=== PATIENT | female | born 1935 | race Caucasian/White ===

== ENCOUNTER → 2016-03-15 | Outpatient (CLI) | payer MEDICARE ==
[2016-02-20 15:45] VITALS: BP 192/81
[~2016-03-15] MED LIST: ATOR20TA58 PO; GADOBUTROL 7.5 MMOL/7.5 ML VIAL IV ONE; HYDR-971 PO; IBUP200C PO; METH4TAB2 PO; Oxycodone Hcl/Acetaminophen PO; SULF1TAB24 PO
[2016-03-15 11:27] LABS: CREATININE 0.8 mg/dL (0.6-1.0)
--- NOTE | 2016-03-15 12:33 | RAD ---
PROCEDURE MRI brain without and with contrast. HISTORY Followup mass/meningioma TECHNIQUE Sagittal and axial T1, axial T2, axial FLAIR, axial diffusion, axial gradient echo T2, and post-contrast axial and coronal T1 weighted images were acquired of the brain. Contrast: 4 cc Gadavist COMPARISON December 28, 2015 FINDINGS There is again large enhancing extra-axial mass of the left frontal region 4.5 cm transverse by 4.1 cm AP by 4.4 cm cc, similar. There is adjacent mild dural thickening and enhancement. There is no evidence of recent infarct. There is no new extra-axial fluid collection. There is no nodular parenchymal enhancement. There is again mild to moderate supratentorial atrophy. Minimal T2 and FLAIR hyperintense signal abnormality such as near frontal horns and a few small foci in the deep white matter are similar. There is similar minimal T2 and FLAIR hyperintense signal abnormality of the yuval. There is preservation of the major arterial intracranial flow voids at the skull base. There has been lens surgery bilaterally. There is again mild fluid and thickening of the right mastoid air cells, left mastoid air cells aerated. There is improved aeration right maxillary sinus, some persistent polypoid mucosal thickening/mucous retention cyst. There is also improved aeration of the right ethmoid air cells, minimal bilateral ethmoid air cell mucosal thickening. Cerebellar tonsils are normal in location. There is no abnormality of the pineal gland or pituitary gland. IMPRESSION 1. Large extra-axial enhancing mass in left frontal region is stable, likely a meningioma. 2. There is again mild to moderate supratentorial atrophy. Minimal T2 and FLAIR hyperintense signal abnormality of the supratentorial white matter is probably due to chronic microvascular ischemic disease, stable. 3. There is improved aeration of the right maxillary sinus, decreased ethmoid air cell mucosal thickening. Electronically signed by: Param Chavez MD (Mar 15, 2016 12:31:20)
== END | disposition home or self-care (01) ==
LOC: MRI 10:44
PROVIDERS: ATTEND Neurological Surgery
DX: G93.9 Disorder of brain, unspecified (principal); G31.89 Other specified degenerative diseases of nervous system; M27.40 Unspecified cyst of jaw
CPT/HCPCS: 36415; 70553; 82565

== ENCOUNTER → 2016-04-18 | Outpatient (CLI) | payer MEDICARE ==
[2016-02-20 15:45] VITALS: BP 192/81
[~2016-04-18] MED LIST changes: -GADOBUTROL 7.5 MMOL/7.5 ML VIAL IV ONE
--- NOTE | 2016-04-18 11:19 | KCIC ---
Two-view chest. Indication:Reason For StudyReason: BRONCHITIS AND COUGH FOR SEVERAL WEEKS, NON SMOKER / Spl. Instructions: / History: FINDINGS: Calcified granulomas are noted in the right lung. Heart size is normal. No pleural effusion. No pneumothorax. Pulmonary vasculature is within normal limits. Impression: - No evidence for heart failure or pneumonia. Electronically signed by: Anant Parnell (Apr 18, 2016 11:18:48)
== END | disposition home or self-care (01) ==
LOC: KCIC 10:42
PROVIDERS: ATTEND Family Medicine
DX: J40 Bronchitis, not specified as acute or chronic (principal); R05 Cough
CPT/HCPCS: 71020

== ENCOUNTER 2016-08-05 08:46 | Emergency (ER) | payer MEDICARE ==
[~2016-08-05] VITALS: Ht 157.5 cm; Wt 43.1 kg
[~2016-08-05 08:46] MED LIST changes: +CALC600T4 PO; +CITA40TA12 PO; +DONE10TA61 PO; +LOPE2CAP88 PO
[2016-08-05] MEDS ORDERED: HYDROcodone/APAP 5/325MG 1 TAB TABLET PO ONE (09:15)
--- NOTE | 2016-08-05 09:15 | PHYS DOC ---
Past Medical History Past Medical History: Arthritis, High Cholesterol Additional Past Medical Histor: osteoporosis, hx of pelvic fx Past Surgical History: Other Additional Past Surgical Histo: broken jaw, broken wrist Alcohol Use: None Drug Use: None Adult General Chief Complaint Chief Complaint: PELVIC PAIN HPI HPI Patient is a 81 year old female who presents with complaint of right hip and groin pain that started this morning upon awakening. Patient denies any recent trauma. Patient states that she is having aching pain that she rates as 7 out of 10 that worsens with movement and weightbearing. Patient has history of osteoporosis but denies known history of arthritis. Patient admits to increased ambulation over the past week to increase exercise. Patient has not taken any medications to help with her symptoms at this time. Patient does report history of previous pelvic fracture to the affected side. Review of Systems Review of Systems Constitutional: Denies fever or chills [] Eyes: Denies change in visual acuity, redness, or eye pain [] HENT: Denies nasal congestion or sore throat [] Respiratory: Denies cough or shortness of breath [] Cardiovascular: Denies chest pain or edema [] GI: Denies abdominal pain, nausea, vomiting, bloody stools or diarrhea [] : Denies dysuria or hematuria [] Musculoskeletal: Right hip and groin pain [] Integument: Denies rash or skin lesions [] Neurologic: Denies headache, focal weakness or sensory changes [] Current Medications Current Medications Current Medications Medications (Trade) Dose Ordered Sig/Juan Start Time Stop Time Status Last Admin Dose Admin Acetaminophen/ Hydrocodone Bitart (Lortab 5/325) 1 tab 1X ONCE 08/05/16 09:15 08/05/16 09:16 DC 08/05/16 09:45 1 TAB Allergies Allergies Allergies Coded Allergies Type Severity Reaction Last Updated Verified No Known Drug Allergies 06/06/16 No Physical Exam Physical Exam Constitutional: Alert, afebrile, appears in moderate discomfort. [] HENT: Normocephalic, atraumatic, bilateral external ears normal, oropharynx moist, no oral exudates, nose normal. [] Eyes: PERRLA, EOMI, conjunctiva normal, no discharge. [] Neck: Normal range of motion, no tenderness, supple, no stridor. [] Cardiovascular:Heart rate regular rhythm, no murmur [] Lungs & Thorax: Bilateral breath sounds clear to auscultation [] Abdomen: Bowel sounds normal, soft, no tenderness, no masses, no pulsatile masses. [] Skin: Warm, dry, no erythema, no rash. [] Back: No tenderness, no CVA tenderness. [] Extremities: Right greater trochanteric tenderness to palpation, no cyanosis, no clubbing, right hip range of motion not tested secondary to pain, no edema, neurovascularly intact distal to right hip. [] Neurologic: Alert and oriented X 3, normal motor function, normal sensory function, no focal deficits noted. [] Current Patient Data Vital Signs Vital Signs Date Time Temp Pulse Resp B/P (MAP) Pulse Ox O2 Delivery O2 Flow Rate FiO2 08/05/16 08:50 97.8 68 18 149/76 (100) 97 Room Air 97.8 Lab Values Laboratory Tests Test 08/05/16 09:20 Urine Collection Type Void Urine Color Yellow Urine Clarity Clear Urine pH 6.0 Urine Specific [place] 1.020 Urine Protein Negative mg/dL (NEG-TRACE) Urine Glucose (UA) Negative mg/dL (NEG) Urine Ketones (Stick) Negative mg/dL (NEG) Urine Blood Moderate (NEG) Urine Nitrite Negative (NEG) Urine Bilirubin Negative (NEG) Urine Urobilinogen Dipstick 0.2 mg/dL (0.2 mg/dL) Urine Leukocyte Esterase Negative (NEG) Urine RBC 11-20 /HPF (0-2) Urine WBC Occ /HPF (0-4) Urine Squamous Epithelial Cells Occ /LPF Urine Bacteria 0 /HPF (0-FEW) Urine Hyaline Casts Occasional /HPF Urine Mucus Mod /LPF EKG EKG Not performed [] Radiology/Procedures Radiology/Procedures [facility] [address] [place] [address] IMAGING REPORT Signed PATIENT: VADIM STARR ACCOUNT: [id number] : 1935 LOCATION: ER AGE: 81 SEX: F EXAM STATUS: REG ER ORD. PHYSICIAN: INES CARPIO MD REASON: right hip pain PROCEDURE: HIP RIGHT 2V WITH PELVIS Pelvis with right hip, 3 views, 08/05/2016: History: Groin pain There are old healed fractures of the pubic bones. No acute fracture or dislocation is identified. The hip joint spaces are well maintained. Mild scattered arterial calcifications are present. IMPRESSION: 1. Old healed bilateral pubic bone fractures. 2. No acute abnormality is detected. DICTATED and SIGNED BY: MINO ELIAS MD DATE: 08/05/16 0955 CC: INES CARPIO MD; OSMEL RIVERA MD ~ [] Course & Med Decision Making Course & Med Decision Making Pertinent Labs and Imaging studies reviewed. (See chart for details) Patient was given hydrocodone in the emergency department. Patient's x-rays show no evidence of acute fracture. The patient's symptoms are likely secondary to aggravation of old injury of the pelvis. Patient's UA shows evidence of mild hematuria. Due to possibility of cystitis, the patient will also be started on Macrobid in addition to pain medication for her hip pain. Recommended that patient follow-up with her primary doctor in the next 5 days if symptoms are not improving and return to the emergency department for any worsening symptoms. Patient voiced understanding and in agreement with treatment plan. Dragon Disclaimer Dragon Disclaimer This electronic medical record was generated, in whole or in part, using a voice recognition dictation system. Departure Departure Impression: Primary Impression: Right hip pain Additional Impression: Cystitis Disposition: 01 HOME, SELF-CARE Condition: IMPROVED Referrals: OSMEL RIVERA MD (PCP) Patient Instructions: Hip Pain, Urinary Tract Infection Additional Instructions: Follow-up with Dr. Rivera in 5 days if symptoms are not improving. You may take 1 [id number] Advil tablet every 6 hours for the next 5 days to help with inflammation. Return to the emergency department for any worsening symptoms. Scripts Hydrocodone/Apap 5-325 (NORCO 5-325 TABLET) 1 Each Tablet 1 TAB PO Q6HRS Y for PAIN, #15 TAB 0 Refills Prov: INES CARPIO MD 08/05/16 Nitrofurantoin Monohyd/M-Cryst (MACROBID 100 MG CAPSULE) 100 Mg Capsule 1 CAP PO BID, #14 CAP Prov: INES CARPIO MD 08/05/16 Problem Qualifiers INES CARPIO MD Aug 05, 2016 09:15
[2016-08-05 09:30] LABS: BILIRUBIN,URINE NEGATIVE (NEG); GLUCOSE,URINE NEGATIVE (NEG); NITRITE,URINE NEGATIVE (NEG); PROTEIN,URINE NEGATIVE (NEG-TRACE); UROBILINOGEN,URINE 0.2 mg/dL (0.2 mg/dL)
[2016-08-05 09:39] LABS: BACTERIA,URINE 0 /HPF (0-FEW); SQUAMOUS EPITHELIAL CELL,UR OCC /LPF; WBC,URINE OCC /HPF (0-4)
--- NOTE | 2016-08-05 09:59 | RAD ---
Pelvis with right hip, 3 views, 08/05/2016: History: Groin pain There are old healed fractures of the pubic bones. No acute fracture or dislocation is identified. The hip joint spaces are well maintained. Mild scattered arterial calcifications are present. IMPRESSION: 1. Old healed bilateral pubic bone fractures. 2. No acute abnormality is detected.
[2016-08-05] MEDS ORDERED: NITR100C62 PO (10:23)
[2016-08-05] MEDS ORDERED: HYDR-971 PO (10:23)
[2016-08-05 10:35] VITALS: BP 140/68
== END 2016-08-05 10:38 | disposition home or self-care (01) ==
LOC: ER 08:46
DX: M25.551 Pain in right hip (principal); N30.90 Cystitis, unspecified without hematuria; M81.0 Age-related osteoporosis without current pathological fracture; M19.90 Unspecified osteoarthritis, unspecified site
CPT/HCPCS: 73502; 81001; 99285-25

== ENCOUNTER → 2017-03-08 | Outpatient (CLI) | payer MEDICARE ==
[2017-03-08 12:17] LABS: ISTAT CREATININE 0.7 mg/dL (0.6-1.1)
[2017-03-08] MEDS: GADOBUTROL 7.5 MMOL/7.5 ML VIAL IV (12:17)
== END | disposition home or self-care (01) ==
LOC: KCIC MRI 11:20
DX: D32.9 Benign neoplasm of meninges, unspecified (principal)
CPT/HCPCS: 70553; 82565; A9585

== ENCOUNTER → 2017-03-24 | Outpatient (CLI) | payer MEDICARE | END | disposition home or self-care (01) | LOC: KCIC 08:55 | DX: M25.531 Pain in right wrist (principal) | CPT/HCPCS: 73110 ==

== ENCOUNTER → 2017-10-13 | Outpatient (CLI) | payer OTHER ==
[~2017-10-13] MED LIST changes: +NITR100C62 PO
--- NOTE | 2017-10-13 17:40 | KCIC ---
CHEST PA LATERAL History: Cough. Wheezing. Cough and recent weeks.. Comparison: April 18, 2016 Heart size: Within normal limits. Elizabeth/mediastinum: Stable Lungs: Dense nodule right lung unchanged, compatible with granuloma. Density overlying the right anterior third rib is stable. Nodular opacity left lung base, likely a nipple shadow or superimposed vasculature. No consolidating infiltrate. Air trapping, compatible with emphysema. Pleura: No evidence of pleural effusion. Pneumothorax: None visualized Bones: S-shaped thoracic scoliosis. Miscellaneous: None Impression: Stable exam. No evidence of acute infiltrate. Electronically signed by: Darwin Mina MD (10/13/2017 5:36 PM) [facility]
== END | disposition home or self-care (01) ==
LOC: KCIC 12:52
PROVIDERS: ATTEND Family Medicine
DX: M41.84 Other forms of scoliosis, thoracic region (principal); R05 Cough; E78.00 Pure hypercholesterolemia, unspecified
CPT/HCPCS: 71046

== ENCOUNTER 2018-04-30 22:32 | Inpatient (IN) | payer MEDICARE, OTHER ==
[~2018-04-30] VITALS: Ht 157.5 cm; Wt 42.8 kg
[~2018-04-30 22:32] MED LIST changes: +HYDR-3164 PO; -HYDR-971 PO
--- NOTE | 2018-04-30 22:57 | PHYS DOC ---
Past Medical History Past Medical History: Arthritis, Dementia, High Cholesterol Additional Past Medical Histor: osteoporosis, hx of pelvic fx (BRE GUTIÉRREZ MD) Past Surgical History: Other Additional Past Surgical Histo: broken jaw, broken wrist (BRE GUTIÉRREZ MD) Alcohol Use: None Drug Use: None (BRE GUTIÉRREZ MD) Adult General Chief Complaint Chief Complaint: WEAKNESS/GENERALIZED HPI HPI Patient is an 83-year-old female who presents to the emergency department via EMS. Her sister, who helps care for the patient, came home and found the patient unable to get out of a chair, secondary to weakness in her legs. She helped the patient to the bathroom, but then the patient was unable to get off of the commode. An EMS was called. The patient denies any traumatic injuries or any falls. She denies any pain otherwise. She has had a cough, which sounds wet but has been mostly nonproductive, for the past month or so according to her sister. She denies any chest pain or shortness of breath. She did state having had headaches on and off. Review of prior records reveals that the patient does have a history of a meningioma. The patient denies any urinary symptoms. There are no alleviating or exacerbating factors to the patient's symptoms otherwise. (BRE GUTIÉRREZ MD) Review of Systems Review of Systems Constitutional: Denies fever or chills [] Eyes: Denies change in visual acuity, redness, or eye pain [] HENT: Denies nasal congestion or sore throat [] Respiratory: Denies shortness of breath with the patient does admit to a cough. [] Cardiovascular: The patient denies any shortness of breath, chest pain, palpitations, or orthopnea [] GI: Denies abdominal pain, nausea, vomiting, bloody stools or diarrhea [] : Denies dysuria or hematuria [] Musculoskeletal: Denies back pain or joint pain [] Integument: Denies rash or skin lesions [] Neurologic: Denies focal weakness or sensory changes [] Endocrine: Denies polyuria or polydipsia [] All other systems were reviewed and found to be within normal limits, except as documented in this note. (BRE GUTIÉRREZ MD) Current Medications Current Medications Current Medications Medications (Trade) Dose Ordered Sig/Juan Start Time Stop Time Status Last Admin Dose Admin Sodium Chloride 1,000 ml @ 100 mls/hr Q10H 04/30/18 23:00 05/01/18 08:59 05/01/18 00:24 100 MLS/HR (DARWIN DEL ROSARIO DO) Allergies Allergies Allergies Coded Allergies Type Severity Reaction Last Updated Verified No Known Drug Allergies 06/06/16 No (DARWIN DEL ROSARIO DO) Physical Exam Physical Exam PHYSICAL EXAM: CONSTITUTIONAL: Well developed, well nourished HEAD: normocephalic, atraumatic EENT: PERRL, EOMI. Conjunctivae normal color, sclerae non-icteric; moist mucous membranes. NECK: Supple, non-tender; no meningismus. LUNGS: Lungs CTA, breathing even and unlabored. Normal air movement. HEART: Regular rate and rhythm, no murmur CHEST: No deformity; non-tender ABDOMEN: The abdomen is soft, and non-tender, no masses or bruits. EXTREM: Normal ROM; no deformity, no calf tenderness. Normal pulses palpable in all extremities. There is no pedal edema. SKIN: No rash; no diaphoresis NEURO: Alert; normal speech, mildly impaired cognition, consistent with underlying dementia, mild,; CN's grossly intact; strength grossly intact without focal deficit. BACK: No CVA TTP. (BRE GUTIÉRREZ MD) Physical Exam l Constitutional: Well developed, well nourished, no acute distress, non-toxic appearance. [] HEENT: EOMI, PERRL, conjunctivae clear Neck: Normal range of motion, no midline tenderness, supple Thorax and Lungs: No respiratory distress, scattered expiratory wheezes L>R Skin: Warm, dry, no erythema, no rash. [] Neuro: Alert and oriented to name and place only, confused to year. 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 , strength 5/5 BUE, 4/5 LLE, 4/5 RLE (DARWIN DEL ROSARIO DO) Current Patient Data Vital Signs Vital Signs Date Time Temp Pulse Resp B/P (MAP) Pulse Ox O2 Delivery O2 Flow Rate FiO2 04/30/18 23:44 87 16 94 04/30/18 22:46 100.9 200/91 (127) Room Air 100.9 (DARWIN DEL ROSARIO DO) Lab Values Laboratory Tests Test 04/30/18 23:25 04/30/18 23:44 3/4/19 23:54 White Blood Count 7.8 x10^3/uL (4.0-11.0) Red Blood Count 4.82 x10^6/uL (3.50-5.40) Hemoglobin 13.9 g/dL (12.0-15.5) Hematocrit 42.6 % (36.0-47.0) Mean Corpuscular Volume 88 fL (79-100) Mean Corpuscular Hemoglobin 29 pg (25-35) Mean Corpuscular Hemoglobin Concent 33 g/dL (31-37) Red Cell Distribution Width 15.1 % (11.5-14.5) H Platelet Count 308 x10^3/uL (140-400) Neutrophils (%) (Auto) 88 % (31-73) H Lymphocytes (%) (Auto) 4 % (24-48) L Monocytes (%) (Auto) 7 % (0-9) Eosinophils (%) (Auto) 1 % (0-3) Basophils (%) (Auto) 1 % (0-3) Neutrophils # (Auto) 6.8 x10^3uL (1.8-7.7) Lymphocytes # (Auto) 0.3 x10^3/uL (1.0-4.8) L Monocytes # (Auto) 0.6 x10^3/uL (0.0-1.1) Eosinophils # (Auto) 0.0 x10^3/uL (0.0-0.7) Basophils # (Auto) 0.0 x10^3/uL (0.0-0.2) Segmented Neutrophils % 87 % (35-66) H Band Neutrophils % 5 % (0-9) Lymphocytes % 2 % (24-48) L Monocytes % 6 % (0-10) Platelet Estimate Adequate (ADEQUATE) Sodium Level 140 mmol/L (136-145) Potassium Level 4.1 mmol/L (3.5-5.1) Chloride Level 101 mmol/L (98-107) Carbon Dioxide Level 27 mmol/L (21-32) Anion Gap 12 (6-14) Blood Urea Nitrogen 20 mg/dL (7-20) Creatinine 0.8 mg/dL (0.6-1.0) Estimated GFR (Cockcroft-Gault) 68.5 BUN/Creatinine Ratio 25 (6-20) H Glucose Level 115 mg/dL (70-99) H Lactic Acid Level 0.9 mmol/L (0.4-2.0) Calcium Level 9.2 mg/dL (8.5-10.1) Magnesium Level 2.0 mg/dL (1.8-2.4) Total Bilirubin 0.3 mg/dL (0.2-1.0) Aspartate Amino Transferase (AST) 16 U/L (15-37) Alanine Aminotransferase (ALT) 17 U/L (14-59) Alkaline Phosphatase 57 U/L (46-116) Creatine Kinase 74 U/L (26-192) Creatine Kinase MB (Mass) 1.2 ng/mL (0.0-3.6) Creatine Kinase MB Relative Index % (0-4) Troponin I Quantitative < 0.017 ng/mL (0.000-0.055) WG-Ufr-B-Type Natriuretic Peptide 834 pg/mL (0-449) H Total Protein 7.5 g/dL (6.4-8.2) Albumin 3.7 g/dL (3.4-5.0) Albumin/Globulin Ratio 1.0 (1.0-1.7) Thyroid Stimulating Hormone (TSH) 1.048 uIU/mL (0.358-3.74) Free Thyroxine 1.01 ng/dL (0.76-1.46) Urine Collection Type Unknown Urine Color Yellow Urine Clarity Clear Urine pH 5.5 Urine Specific [place] 1.025 Urine Protein 30 mg/dL (NEG-TRACE) Urine Glucose (UA) Negative mg/dL (NEG) Urine Ketones (Stick) 15 mg/dL (NEG) Urine Blood Moderate (NEG) Urine Nitrite Negative (NEG) Urine Bilirubin Negative (NEG) Urine Urobilinogen Dipstick 0.2 mg/dL (0.2 mg/dL) Urine Leukocyte Esterase Negative (NEG) Urine RBC 6-10 /HPF (0-2) Urine WBC 1-4 /HPF (0-4) Urine Squamous Epithelial Cells Mod /LPF Urine Bacteria 0 /HPF (0-FEW) Urine Mucus Marked /LPF Influenza Type A Antigen Negative (NEGATIVE) Influenza Type B Antigen Negative (NEGATIVE) Laboratory Tests 04/30/18 23:25 Laboratory Tests 04/30/18 23:25 (DARWIN DEL ROSARIO DO) Lab Values Laboratory Tests Test 04/30/18 23:25 White Blood Count 7.8 x10^3/uL (4.0-11.0) Red Blood Count 4.82 x10^6/uL (3.50-5.40) Hemoglobin 13.9 g/dL (12.0-15.5) Hematocrit 42.6 % (36.0-47.0) Mean Corpuscular Volume 88 fL (79-100) Mean Corpuscular Hemoglobin 29 pg (25-35) Mean Corpuscular Hemoglobin Concent 33 g/dL (31-37) Red Cell Distribution Width 15.1 % (11.5-14.5) H Platelet Count 308 x10^3/uL (140-400) Neutrophils (%) (Auto) 88 % (31-73) H Lymphocytes (%) (Auto) 4 % (24-48) L Monocytes (%) (Auto) 7 % (0-9) Eosinophils (%) (Auto) 1 % (0-3) Basophils (%) (Auto) 1 % (0-3) Neutrophils # (Auto) 6.8 x10^3uL (1.8-7.7) Lymphocytes # (Auto) 0.3 x10^3/uL (1.0-4.8) L Monocytes # (Auto) 0.6 x10^3/uL (0.0-1.1) Eosinophils # (Auto) 0.0 x10^3/uL (0.0-0.7) Basophils # (Auto) 0.0 x10^3/uL (0.0-0.2) Segmented Neutrophils % 87 % (35-66) H Band Neutrophils % 5 % (0-9) Lymphocytes % 2 % (24-48) L Monocytes % 6 % (0-10) Platelet Estimate Adequate (ADEQUATE) Sodium Level 140 mmol/L (136-145) Potassium Level 4.1 mmol/L (3.5-5.1) Chloride Level 101 mmol/L (98-107) Carbon Dioxide Level 27 mmol/L (21-32) Anion Gap 12 (6-14) Blood Urea Nitrogen 20 mg/dL (7-20) Creatinine 0.8 mg/dL (0.6-1.0) Estimated GFR (Cockcroft-Gault) 68.5 BUN/Creatinine Ratio 25 (6-20) H Glucose Level 115 mg/dL (70-99) H Lactic Acid Level 0.9 mmol/L (0.4-2.0) Calcium Level 9.2 mg/dL (8.5-10.1) Magnesium Level 2.0 mg/dL (1.8-2.4) Total Bilirubin 0.3 mg/dL (0.2-1.0) Aspartate Amino Transferase (AST) 16 U/L (15-37) Alanine Aminotransferase (ALT) 17 U/L (14-59) Alkaline Phosphatase 57 U/L (46-116) Troponin I Quantitative < 0.017 ng/mL (0.000-0.055) Total Protein 7.5 g/dL (6.4-8.2) Albumin 3.7 g/dL (3.4-5.0) Albumin/Globulin Ratio 1.0 (1.0-1.7) Laboratory Tests 04/30/18 23:25 Laboratory Tests 04/30/18 23:25 (BRE GUTIÉRREZ MD) EKG EKG [Normal sinus rhythm at a rate of 87 beats for minute, normal axis, normal intervals, left upper 3, nonspecific ST/T changes without acute ischemic ST/T changes.] (BRE GUTIÉRREZ MD) Radiology/Procedures Radiology/Procedures [PROCEDURE: CT HEAD WO CONTRAST CT HEAD WO CONTRAST History: Weakness, headache, mass Comparison: 12/09/2015 Technique: Noncontrast CT imaging was performed of the head. Exposure: One or more of the following individualized dose reduction techniques were utilized for this examination: 1. Automated exposure control 2. Adjustment of the mA and/or kV according to patient size 3. Use of iterative reconstruction technique. Findings: There is again partially calcified large extra-axial mass in the left frontal region about 4.2 cm AP by 4.3 cm transverse, some compression upon the left frontal parenchyma as seen previously, no new edema. Size is fairly similar. There is no evidence of acute intracranial hemorrhage. There is again generalized supratentorial atrophy. Ventricular size is stable, within normal limits. Visualized paranasal sinuses and mastoid air cells are aerated. There is atherosclerotic calcification of the carotid siphons. Impression: 1. No acute intracranial abnormality is identified. There is again large left frontal mass, evidence of meningioma. There is generalized supratentorial atrophy.] PROCEDURE: PORTABLE CHEST 1V PORTABLE CHEST 1V History: COUGH, WEAKNESS SINCE THIS MORNING Comparison: October 13, 2017 Findings: As AP portable view of the chest is submitted. There is again likely emphysema. There is no new infiltrate, pleural fluid, pneumothorax. Interstitial opacity bilaterally has not convincingly changed. There is again granuloma of the right lung base. Heart size is within normal limits. There is again tortuous thoracic aorta, atherosclerotic calcification near aortic arch. Impression: 1. No acute radiographic abnormality is identified. There is likely emphysema. (BRE GUTIÉRREZ MD) Course & Med Decision Making Course & Med Decision Making Pertinent Labs and Imaging studies reviewed. (See chart for details) [12:00 AM: Patient will be turned over to Dr. Darwin Del Rosario at shift change, report given, disposition pending.] (BRE GUTIÉRREZ MD) Course & Med Decision Making Sign out received from Dr. Gutiérrez for patient with report of generalized weakness. Patient pending laboratory evaluation. CT head and CXR without acute process. Patient seen and evaluated by myself. NIHSS 2 due to slight drift to BLE. Patient requiring admission for further evaluation and treatment. Discussed with Dr. Jeffrey (hospitalist) who is in agreement with admission. Discussed findings and plan with patient and family, who acknowledge understanding and agreement. (DARWIN DEL ROSARIO DO) Dragon Disclaimer Dragon Disclaimer This electronic medical record was generated, in whole or in part, using a voice recognition dictation system. (BRE GUTIÉRREZ MD) Departure Departure Impression: Primary Impression: Generalized weakness Disposition: ADMITTED INPATIENT Admitting Physician: Lam Jeffrey (DARWIN DEL ROSARIO DO) Condition: STABLE Referrals: OSMEL RIVERA MD (PCP) NIHSS Stroke Scale NIH Stroke Scale: NIH Stroke Scale Response (Comments) Value Level of Consciousness: 0 Alert/Responsive 0 LOC Questions: 0 Answers both correctly 0 LOC Commands: 0 Performs both tasks 0 Best Gaze: 0 Normal 0 Visual: 0 No visual loss 0 Facial Palsy: 0 Normal, symmetrical 0 Motor - Left Arm 0 No drift 0 Motor - Right Arm 0 No drift 0 Motor - Left Leg 1 Drift but can hold 1 Motor: Right Leg 1 Drift but can hold 1 Limb Ataxia: 0 Absent 0 Sensory: 0 No loss 0 Best Language: 0 Normal 0 Dysathria: 0 Normal 0 Extinction and Inattention: 0 Normal 0 Total 2 BRE GUTIÉRREZ MD Apr 30, 2018 22:57 DARWIN DEL ROSARIO DO May 01, 2018 00:45
[2018-04-30] MEDS ORDERED: IV NORMAL SALINE 1000ML BAG 1,000 ML IV SCH (23:00)
--- NOTE | 2018-04-30 23:19 | RAD ---
PORTABLE CHEST 1V History: COUGH, WEAKNESS SINCE THIS MORNING Comparison: October 13, 2017 Findings: As AP portable view of the chest is submitted. There is again likely emphysema. There is no new infiltrate, pleural fluid, pneumothorax. Interstitial opacity bilaterally has not convincingly changed. There is again granuloma of the right lung base. Heart size is within normal limits. There is again tortuous thoracic aorta, atherosclerotic calcification near aortic arch. Impression: 1. No acute radiographic abnormality is identified. There is likely emphysema. Electronically signed by: Casey Chavez MD (04/30/2018 11:16 PM) [facility]
--- NOTE | 2018-04-30 23:35 | RAD ---
CT HEAD WO CONTRAST History: Weakness, headache, mass Comparison: 12/09/2015 Technique: Noncontrast CT imaging was performed of the head. Exposure: One or more of the following individualized dose reduction techniques were utilized for this examination: 1. Automated exposure control 2. Adjustment of the mA and/or kV according to patient size 3. Use of iterative reconstruction technique. Findings: There is again partially calcified large extra-axial mass in the left frontal region about 4.2 cm AP by 4.3 cm transverse, some compression upon the left frontal parenchyma as seen previously, no new edema. Size is fairly similar. There is no evidence of acute intracranial hemorrhage. There is again generalized supratentorial atrophy. Ventricular size is stable, within normal limits. Visualized paranasal sinuses and mastoid air cells are aerated. There is atherosclerotic calcification of the carotid siphons. Impression: 1. No acute intracranial abnormality is identified. There is again large left frontal mass, evidence of meningioma. There is generalized supratentorial atrophy. Electronically signed by: Casey Chavez MD (04/30/2018 11:32 PM) [facility]
[2018-04-30 23:36] LABS: BASO % 1 % (0-3); EOS % 1 % (0-3); HEMATOCRIT 42.6 % (36.0-47.0); HEMOGLOBIN 13.9 g/dL (12.0-15.5); LYMPH # 0.3 x10^3/uL (1.0-4.8); LYMPH % 4 % (24-48); MEAN CORPUSCULAR HEMOGLOBIN 29 pg (25-35); MEAN CORPUSCULAR HGB CONC 33 g/dL (31-37); MEAN CORPUSCULAR VOLUME 88 fL (79-100); MONO # 0.6 x10^3/uL (0.0-1.1); MONO % 7 % (0-9); NEUT # 6.8 x10^3uL (1.8-7.7); NEUT % 88 % (31-73); PLATELET COUNT 308 x10^3/uL (140-400); RED BLOOD COUNT 4.82 x10^6/uL (3.50-5.40); RED CELL DISTRIBUTION WIDTH 15.1 % (11.5-14.5); WHITE BLOOD COUNT 7.8 x10^3/uL (4.0-11.0)
[2018-04-30 23:46] LABS: CALCIUM 9.2 mg/dL (8.5-10.1); CREATININE 0.8 mg/dL (0.6-1.0); GFR 68.5; POTASSIUM 4.1 mmol/L (3.5-5.1)
[2018-04-30 23:51] LABS: ALBUMIN 3.7 g/dL (3.4-5.0); TOTAL BILIRUBIN 0.3 mg/dL (0.2-1.0); TOTAL PROTEIN 7.5 g/dL (6.4-8.2)
[2018-04-30 23:53] LABS: BILIRUBIN,URINE NEGATIVE (NEG); CLARITY,URINE CLEAR; COLOR,URINE YELLOW; NITRITE,URINE NEGATIVE (NEG); PH,URINE 5.5; PROTEIN,URINE 30 mg/dL (NEG-TRACE); UROBILINOGEN,URINE 0.2 mg/dL (0.2 mg/dL)
[2018-04-30 23:54] LABS: % BANDS 5 % (0-9); % LYMPHS 2 % (24-48); % MONOS 6 % (0-10); % SEGS 87 % (35-66); PLT ESTIMATE ADEQUATE (ADEQUATE)
[2018-04-30 23:59] LABS: FREE T4 1.01 ng/dL (0.76-1.46); THYROID STIM HORMONE (TSH) 1.048 uIU/mL (0.358-3.74)
[2018-05-01] VITALS (7 sets, daily range): BP systolic 154–193; BP diastolic 71–93
[2018-05-01 00:01] LABS: BACTERIA,URINE 0 /HPF (0-FEW); SQUAMOUS EPITHELIAL CELL,UR MOD /LPF
[2018-05-01 00:14] LABS: CREATINE KINASE 74 U/L (26-192)
[2018-05-01 00:30] LABS: INFLUENZA A PATIENT NEGATIVE (NEGATIVE); INFLUENZA B PATIENT NEGATIVE (NEGATIVE)
--- NOTE | 2018-05-01 05:57 | EKG ---
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
[2018-05-01] MEDS ORDERED: MELO7.5T29 PO (07:36)
[2018-05-01] MEDS: amLODIPine BESYLATE 5 MG TABLET PO SCH (08:36)
[2018-05-01] MEDS ORDERED: amLODIPine BESYLATE 10 MG TABLET PO SCH (09:00)
--- NOTE | 2018-05-01 10:30 | NUR ---
Pt transferred from room 201 to room 673. Received report from DEEPIKA Hawley. Pt transported via bed. All belongings left with patient at time of transfer. Family at the bedside.
--- NOTE | 2018-05-01 10:30 | NUR ---
Patient transferred to room 673 at 1030. Report given over phone to DEEPIKA Terrazas. transplant registered nurse placed on patient. Sister at bedside.
[2018-05-01] MEDS ORDERED: PROAIR RESPICL90 MCG IH (11:29)
[2018-05-01] MEDS ORDERED: NON FORMULARY ITEM (Albuterol Sulfate (Proair Respiclick) 2 PUFF) IH PRN (11:30)
[2018-05-01] MEDS ORDERED: ALBUTEROL SULFATE 2.5 MG/3 ML NEBU. NEB PRN (11:45)
[2018-05-01] MEDS ORDERED: LOPERAMIDE 2 MG CAPSULE PO PRN (11:45)
--- NOTE | 2018-05-01 11:45 | NUR ---
Spoke with a pharmacy resident at [facility] on [address] who verified patient home medications with this RN. Pt sister, Tawana confirmed that patient medication list is current at [facility] and does not receive medications from anywhere else.
--- NOTE | 2018-05-01 12:14 | HP ---
ADMIT DATE: 05/01/2018 CHIEF COMPLAINT: Weakness. HISTORY OF PRESENT ILLNESS: The patient is a pleasant 83-year-old female presented to the ER with weakness. Her sister helps take care of her. The patient apparently could not get out of her chair, her legs were quite weak. Her sister did take her to the bathroom, but she could not get off the commode, EMS was called. She did have a cough that has been nonproductive for several days, rates it as 7/10. Describes as irritating. She tried taking some home meds but that did not work. She has been having some headaches too. I discussed the case with the ER physician. We are going to admit the patient and consult social media developer and do some physical therapy, occupational therapy and she is wheezing some, so we are going to get Pulmonary on board. PAST MEDICAL HISTORY: Chronic wheezing, arthritis, dementia, hyperlipidemia, osteoporosis, pelvic fracture, broken jaw, broken wrist. ALLERGIES: None. FAMILY HISTORY: Coronary artery disease. SOCIAL HISTORY: She does not drink, smoke or take drugs. I think she lives alone. MEDICATIONS: Reviewed, she is on 7 including Aricept, ProAir, meloxicam, [place], Celexa, calcium and Imodium. REVIEW OF SYSTEMS: Unable to obtain. The patient is too confused. PHYSICAL EXAMINATION: VITAL SIGNS: Temperature 98, pulse 80, respirations 18, blood pressure 179/92. GENERAL: She is pleasant but confused. Her sister is present. HEART: Normal S1, S2. LUNGS: Coarse with wheezing. ABDOMEN: Soft. EXTREMITIES: No edema. SKIN: No rash. ENDOCRINE: No thyromegaly. LYMPHATICS: No cervical nodes. HEMATOPOIETIC: No bruising. PSYCHIATRIC: She is stable. LABORATORY AND DIAGNOSTIC DATA: White count 7.8, hemoglobin 13.9, platelets 308. Electrolytes are pending. Urinalysis negative. Flu testing is negative. Chest x-ray: No acute changes. There is likely emphysema. ASSESSMENT AND PLAN: Probable early failure to thrive, wheezing, emphysema, weakness. The patient has been admitted. We will consult Physical Therapy, Occupational Therapy, consult Dr. Sisillo. Patricia. Full code. Home meds. Frequent labs. SNU eval. TSH. Blood cultures are pending. ERICA ARELLANO DO DR: ZACARIAS/umesh JOB#: [id number] / [id number]
[2018-05-01] MEDS: CALCIUM CARBONATE 500 MG TABLET PO SCH (12:19)
[2018-05-01] MEDS: MELOXICAM 7.5 MG TABLET PO SCH (12:19)
[2018-05-01] MEDS ORDERED: MEMA10TA20 PO (14:13)
[2018-05-01] MEDS ORDERED: CALC-98 PO (14:13)
[2018-05-01] MEDS ORDERED: DENO60DI SQ (14:13)
[2018-05-01] MEDS: ALBUTEROL SULFATE 2.5 MG/3 ML NEBU. NEB SCH (21:16)
[2018-05-01] MEDS: DONEPEZIL HCL 10 MG TABLET. PO SCH (21:37)
[2018-05-01] MEDS: CITALOPRAM 20 MG TABLET. PO SCH (21:37)
[2018-05-01] MEDS: methylPREDNISolone SOD SUCC PF 40 MG/ML VIAL. IV SCH (21:37)
[2018-05-02 03:20] VITALS: BP 140/82
[2018-05-02 07:00] VITALS: BP 154/87
[2018-05-02] MEDS: ALBUTEROL SULFATE 2.5 MG/3 ML NEBU. NEB SCH ×4 (08:12→21:16)
[2018-05-02] MEDS: CALCIUM CARBONATE 500 MG TABLET PO SCH (09:43)
[2018-05-02] MEDS: MELOXICAM 7.5 MG TABLET PO SCH (09:44)
[2018-05-02] MEDS: amLODIPine BESYLATE 5 MG TABLET PO SCH (09:44)
[2018-05-02] MEDS: methylPREDNISolone SOD SUCC PF 40 MG/ML VIAL. IV SCH ×2 (09:46→21:23)
--- NOTE | 2018-05-02 10:59 | PDOC ---
PULMONARY PROGRESS NOTES Vitals Vital Signs Date Time Temp Pulse Resp B/P (MAP) Pulse Ox O2 Delivery O2 Flow Rate FiO2 05/02/18 09:44 75 154/87 05/02/18 08:13 91 Room Air 05/02/18 07:00 97.5 18 97.5 Labs Laboratory Tests Test 04/30/18 23:25 04/30/18 23:44 04/30/18 23:54 05/01/18 04:00 White Blood Count 7.8 x10^3/uL (4.0-11.0) Red Blood Count 4.82 x10^6/uL (3.50-5.40) Hemoglobin 13.9 g/dL (12.0-15.5) Hematocrit 42.6 % (36.0-47.0) Mean Corpuscular Volume 88 fL (79-100) Mean Corpuscular Hemoglobin 29 pg (25-35) Mean Corpuscular Hemoglobin Concent 33 g/dL (31-37) Red Cell Distribution Width 15.1 % (11.5-14.5) Platelet Count 308 x10^3/uL (140-400) Neutrophils (%) (Auto) 88 % (31-73) Lymphocytes (%) (Auto) 4 % (24-48) Monocytes (%) (Auto) 7 % (0-9) Eosinophils (%) (Auto) 1 % (0-3) Basophils (%) (Auto) 1 % (0-3) Neutrophils # (Auto) 6.8 x10^3uL (1.8-7.7) Lymphocytes # (Auto) 0.3 x10^3/uL (1.0-4.8) Monocytes # (Auto) 0.6 x10^3/uL (0.0-1.1) Eosinophils # (Auto) 0.0 x10^3/uL (0.0-0.7) Basophils # (Auto) 0.0 x10^3/uL (0.0-0.2) Segmented Neutrophils % 87 % (35-66) Band Neutrophils % 5 % (0-9) Lymphocytes % 2 % (24-48) Monocytes % 6 % (0-10) Platelet Estimate Adequate (ADEQUATE) Sodium Level 140 mmol/L (136-145) Potassium Level 4.1 mmol/L (3.5-5.1) Chloride Level 101 mmol/L (98-107) Carbon Dioxide Level 27 mmol/L (21-32) Anion Gap 12 (6-14) Blood Urea Nitrogen 20 mg/dL (7-20) Creatinine 0.8 mg/dL (0.6-1.0) Estimated GFR (Cockcroft-Gault) 68.5 BUN/Creatinine Ratio 25 (6-20) Glucose Level 115 mg/dL (70-99) Lactic Acid Level 0.9 mmol/L (0.4-2.0) Calcium Level 9.2 mg/dL (8.5-10.1) Magnesium Level 2.0 mg/dL (1.8-2.4) Total Bilirubin 0.3 mg/dL (0.2-1.0) Aspartate Amino Transf (AST/SGOT) 16 U/L (15-37) Alanine Aminotransferase (ALT/SGPT) 17 U/L (14-59) Alkaline Phosphatase 57 U/L (46-116) Creatine Kinase 74 U/L (26-192) Creatine Kinase MB (Mass) 1.2 ng/mL (0.0-3.6) Creatine Kinase MB Relative Index % (0-4) Troponin I Quantitative < 0.017 ng/mL (0.000-0.055) < 0.017 ng/mL (0.000-0.055) FC-Yvs-A-Type Natriuretic Peptide 834 pg/mL (0-449) Total Protein 7.5 g/dL (6.4-8.2) Albumin 3.7 g/dL (3.4-5.0) Albumin/Globulin Ratio 1.0 (1.0-1.7) Thyroid Stimulating Hormone (TSH) 1.048 uIU/mL (0.358-3.74) Free Thyroxine 1.01 ng/dL (0.76-1.46) Urine Collection Type Unknown Urine Color Yellow Urine Clarity Clear Urine pH 5.5 Urine Specific [place] 1.025 Urine Protein 30 mg/dL (NEG-TRACE) Urine Glucose (UA) Negative mg/dL (NEG) Urine Ketones (Stick) 15 mg/dL (NEG) Urine Blood Moderate (NEG) Urine Nitrite Negative (NEG) Urine Bilirubin Negative (NEG) Urine Urobilinogen Dipstick 0.2 mg/dL (0.2 mg/dL) Urine Leukocyte Esterase Negative (NEG) Urine RBC 6-10 /HPF (0-2) Urine WBC 1-4 /HPF (0-4) Urine Squamous Epithelial Cells Mod /LPF Urine Bacteria 0 /HPF (0-FEW) Urine Mucus Marked /LPF Influenza Type A Antigen Negative (NEGATIVE) Influenza Type B Antigen Negative (NEGATIVE) Test 05/01/18 07:10 Troponin I Quantitative 0.019 ng/mL (0.000-0.055) Medications Active Scripts Medications Dose Route/Sig Max Daily Dose Days Date Category Calcium + Vitamin D Tablet (Calcium Carbonate/Vitamin D3) 1 Each Tablet 1 Each PO BID 05/01/18 Reported Prolia (Denosumab) 60 Mg/1 Ml Disp.syrin 60 Mg SQ [id number] 05/01/18 Reported Memantine HCl 10 Mg Tablet 10 Mg PO BID 05/01/18 Reported Proair Respiclick (Albuterol Sulfate) 90 Mcg Aer.pow.ba 2 Puff IH PRN Q6HRS PRN 05/01/18 Reported Meloxicam 7.5 Mg Tablet 7.5 Mg PO DAILY 05/01/18 Reported Imodium A-D (Loperamide HCl) 2 Mg Capsule 2 Mg PO PRN TID PRN 06/08/16 Rx Celexa (Citalopram Hydrobromide) 40 Mg Tablet 1 Tab PO DAILY 06/06/16 Reported Aricept (Donepezil Hcl) 10 Mg Tablet 1 Tab PO DAILY 06/06/16 Reported Impression . NOTE DICTATED THANKS AECOPD POSSIBLE ASPIRATION SEE ORDERS THANKS CHRISTOPHER DENIS MD May 02, 2018 10:59
[2018-05-02 11:00] VITALS: BP 151/78
[2018-05-02] MEDS: DOXYCYCLINE HYCLATE 100 MG TABLET PO SCH ×2 (12:00→21:22)
--- NOTE | 2018-05-02 14:52 | PDOC ---
PROGRESS NOTES Chief Complaint Chief Complaint Acute COPD exacerbation Weakness moderate to severe protein calorie malnutrition moderate dehydration resolved Plan follow apprenticeship consultant recommendations PT evaluation rsume home medications reassess in the am further recommendations based on clinical course. History of Present Illness History of Present Illness Patient with no acute events reported overnight. The patient seems to have recovered her appetite she is hoping to be dismissed home. A concern from her note months is that she is not eating or caring for herself appropriately. She became quite dehydrated upon presentation to the hospital I have encourage her to follow recommendations from physical therapy number apprenticeship consultant moving forward. No complaints during my visit Vitals Vitals Vital Signs Date Time Temp Pulse Resp B/P (MAP) Pulse Ox O2 Delivery O2 Flow Rate FiO2 05/02/18 12:26 Room Air 05/02/18 11:00 97.8 71 18 151/78 (102) 93 97.8 Physical Exam Physical Exam Gen.: Thin looking in no apparent distress Head: Normal shape atraumatic Eyes: Pupils equal reactive to light and accommodation, normal conjunctivae and lids Ears: Normal shape Nose: Normal shape no trauma Mouth: No exudates of the back of throat no thrush no lesions Neck: Supple no JVD no carotid bruit or lymphadenopathy no thyromegaly Chest: Lungs clear to auscultation with good inspiratory effort no crackles rales or rhonchi Cardiovascular: S1-S2 regular rhythm no murmurs gallops or rubs Abdomen: Bowel sounds present soft nontender no hepatosplenomegaly appreciated sign Extremities: No clubbing no cyanosis no edema peripheral pulses palpated bilaterally Neurological: Alert awake oriented in person time place and situation, cranial nerves II through XII intact, no motor or sensory deficits appreciated Psych: Appropriate mood, cooperative Assessment and Plan Assessmemt and Plan Problems Medical Problems: (1) Generalized weakness Status: Acute Comment Review of Relevant I have reviewed the following items donovan (where applicable) has been applied. Labs Laboratory Tests Test 04/30/18 23:25 04/30/18 23:44 04/30/18 23:54 05/01/18 04:00 White Blood Count 7.8 x10^3/uL (4.0-11.0) Red Blood Count 4.82 x10^6/uL (3.50-5.40) Hemoglobin 13.9 g/dL (12.0-15.5) Hematocrit 42.6 % (36.0-47.0) Mean Corpuscular Volume 88 fL (79-100) Mean Corpuscular Hemoglobin 29 pg (25-35) Mean Corpuscular Hemoglobin Concent 33 g/dL (31-37) Red Cell Distribution Width 15.1 % (11.5-14.5) Platelet Count 308 x10^3/uL (140-400) Neutrophils (%) (Auto) 88 % (31-73) Lymphocytes (%) (Auto) 4 % (24-48) Monocytes (%) (Auto) 7 % (0-9) Eosinophils (%) (Auto) 1 % (0-3) Basophils (%) (Auto) 1 % (0-3) Neutrophils # (Auto) 6.8 x10^3uL (1.8-7.7) Lymphocytes # (Auto) 0.3 x10^3/uL (1.0-4.8) Monocytes # (Auto) 0.6 x10^3/uL (0.0-1.1) Eosinophils # (Auto) 0.0 x10^3/uL (0.0-0.7) Basophils # (Auto) 0.0 x10^3/uL (0.0-0.2) Segmented Neutrophils % 87 % (35-66) Band Neutrophils % 5 % (0-9) Lymphocytes % 2 % (24-48) Monocytes % 6 % (0-10) Platelet Estimate Adequate (ADEQUATE) Sodium Level 140 mmol/L (136-145) Potassium Level 4.1 mmol/L (3.5-5.1) Chloride Level 101 mmol/L (98-107) Carbon Dioxide Level 27 mmol/L (21-32) Anion Gap 12 (6-14) Blood Urea Nitrogen 20 mg/dL (7-20) Creatinine 0.8 mg/dL (0.6-1.0) Estimated GFR (Cockcroft-Gault) 68.5 BUN/Creatinine Ratio 25 (6-20) Glucose Level 115 mg/dL (70-99) Lactic Acid Level 0.9 mmol/L (0.4-2.0) Calcium Level 9.2 mg/dL (8.5-10.1) Magnesium Level 2.0 mg/dL (1.8-2.4) Total Bilirubin 0.3 mg/dL (0.2-1.0) Aspartate Amino Transf (AST/SGOT) 16 U/L (15-37) Alanine Aminotransferase (ALT/SGPT) 17 U/L (14-59) Alkaline Phosphatase 57 U/L (46-116) Creatine Kinase 74 U/L (26-192) Creatine Kinase MB (Mass) 1.2 ng/mL (0.0-3.6) Creatine Kinase MB Relative Index % (0-4) Troponin I Quantitative < 0.017 ng/mL (0.000-0.055) < 0.017 ng/mL (0.000-0.055) YA-Sei-E-Type Natriuretic Peptide 834 pg/mL (0-449) Total Protein 7.5 g/dL (6.4-8.2) Albumin 3.7 g/dL (3.4-5.0) Albumin/Globulin Ratio 1.0 (1.0-1.7) Thyroid Stimulating Hormone (TSH) 1.048 uIU/mL (0.358-3.74) Free Thyroxine 1.01 ng/dL (0.76-1.46) Urine Collection Type Unknown Urine Color Yellow Urine Clarity Clear Urine pH 5.5 Urine Specific [place] 1.025 Urine Protein 30 mg/dL (NEG-TRACE) Urine Glucose (UA) Negative mg/dL (NEG) Urine Ketones (Stick) 15 mg/dL (NEG) Urine Blood Moderate (NEG) Urine Nitrite Negative (NEG) Urine Bilirubin Negative (NEG) Urine Urobilinogen Dipstick 0.2 mg/dL (0.2 mg/dL) Urine Leukocyte Esterase Negative (NEG) Urine RBC 6-10 /HPF (0-2) Urine WBC 1-4 /HPF (0-4) Urine Squamous Epithelial Cells Mod /LPF Urine Bacteria 0 /HPF (0-FEW) Urine Mucus Marked /LPF Influenza Type A Antigen Negative (NEGATIVE) Influenza Type B Antigen Negative (NEGATIVE) Test 05/01/18 07:10 Troponin I Quantitative 0.019 ng/mL (0.000-0.055) Microbiology 04/30/18 Blood Culture - Preliminary, Resulted NO GROWTH AFTER 1 DAY Medications Current Medications Sodium Chloride 1,000 ml @ 100 mls/hr Q10H IV Last administered on 05/01/18at 00 :24; Start 04/30/18 at 23:00; Stop 05/01/18 at 08:59; Status DC Amlodipine Besylate (Norvasc) 10 mg DAILY PO ; Start 05/01/18 at 09:00; Stop 05/01 at 09:00; Status DC Amlodipine Besylate (Norvasc) 5 mg DAILY PO Last administered on 05/02/18 09:44 ; Start 05/01/18 at 09:00 Non-Formulary Medication (Albuterol Sulfate (Proair Respiclick)) 2 puff PRN Q6HRS PRN IH SHORTNESS OF BREATH; Start 05/01/18 at 11:30; Stop 05/01/18 at 11:38 ; Status DC Calcium Carbonate/ Glycine (Oscal) 500 mg DAILY PO Last administered on 09:43; Start 05/01/18 at 13:00 Citalopram Hydrobromide (CeleXA) 40 mg QHS PO Last administered on 05/01/18 21: 37; Start 05/01/18 at 21:00 Donepezil HCl (Aricept) 10 mg QHS PO Last administered on 05/01/18 21:37; Start 05/01/18 at 21:00 Loperamide HCl (Imodium) 2 mg PRN TID PRN PO DIARRHEA; Start 05/01/18 at 11:45 Meloxicam (Mobic) 7.5 mg DAILY PO Last administered on 05/02/18 09:44; Start at 13:00 Albuterol Sulfate (Ventolin Neb Soln) 2.5 mg PRN Q6HRS PRN NEB SHORTNESS OF BREATH Last administered on 05/01/18 18:21; Start 05/01/18 at 11:45 Methylprednisolone Sodium Succinate (SOLU-Medrol 40MG VIAL) 80 mg Q12HR IV Last administered on 05/02/18 09:46; Start 05/01/18 at 21:00 Albuterol Sulfate (Ventolin Neb Soln) 2.5 mg RTQID NEB Last administered on 05/02 12:26; Start 05/01/18 at 20:00 Doxycycline Hyclate (Vibra-Tab) 100 mg BID PO Last administered on 05/02/18 12: 00; Start 05/02/18 at 12:00 Lactobacillus Rhamnosus (Culturelle) 1 cap BID PO ; Start 05/02/18 at 21:00 Active Scripts Active Imodium A-D (Loperamide HCl) 2 Mg Capsule 2 Mg PO PRN TID PRN Reported Calcium + Vitamin D Tablet (Calcium Carbonate/Vitamin D3) 1 Each Tablet 1 Each PO BID Prolia (Denosumab) 60 Mg/1 Ml Disp.syrin 60 Mg SQ [id number] Memantine HCl 10 Mg Tablet 10 Mg PO BID Proair Respiclick (Albuterol Sulfate) 90 Mcg Aer.pow.ba 2 Puff IH PRN Q6HRS PRN Meloxicam 7.5 Mg Tablet 7.5 Mg PO DAILY Celexa (Citalopram Hydrobromide) 40 Mg Tablet 1 Tab PO DAILY Aricept (Donepezil Hcl) 10 Mg Tablet 1 Tab PO DAILY Vitals/I & O Vital Sign - Last 24 Hours 05/01/18 05/01/18 05/01/18 05/01/18 16:20 18:23 19:15 20:00 Temp 99.7 99.7 Pulse 94 Resp 20 B/P (MAP) 157/71 (99) Pulse Ox 93 91 O2 Delivery Room Air Room Air Room Air Room Air 05/01/18 05/01/18 05/02/18 05/02/18 21:17 23:20 03:20 07:00 Temp 98.1 97.5 98.1 97.5 Pulse 90 84 75 Resp 22 22 18 B/P (MAP) 166/87 (113) 140/82 (101) 154/87 (109) Pulse Ox 93 91 90 93 O2 Delivery Room Air Room Air Room Air Room Air 05/02/18 05/02/18 05/02/18 05/02/18 08:00 08:13 09:44 11:00 Temp 97.8 97.8 Pulse 75 71 Resp 18 B/P (MAP) 154/87 151/78 (102) Pulse Ox 91 93 O2 Delivery Room Air Room Air Room Air 05/02/18 12:26 O2 Delivery Room Air Intake and Output 05/01/18 05/01/18 05/02/18 15:00 23:00 07:00 Intake Total 0 ml 120 ml 120 ml Balance 0 ml 120 ml 120 ml Nutrition Consultation Dietary Evaluation: Recommendations by RD: Increase Calorie Intake, Protein supplementation Comments: diet modified by ASSISTANT PROFESSOR OF DIETETICS to help po intake ensure bid Expected Outcomes/Goals: to meet > 75% est nutr needs wt maintainance Malnutrition Findings: Body Fat Depletion (Non Severe: Mod to Severe Weight Status: Underweight KAYLA VEGA MD May 02, 2018 14:52
[2018-05-02 15:00] VITALS: BP 162/162
--- NOTE | 2018-05-02 15:57 | NUR ---
MARCIAL following. Discussed with RN. PT/OT recommending SNU. MARCIAL spoke with pt's sister/DPOA Tawana Dolan ([phone]). Tawana reported pt has not been doing too well at home with not bathing or changing clothes, as well as possibly not taking her medications. Tawana agrees with referral to SNU and would like pt to go to [facility] as she has been there in the past. MARCIAL discussed LTC, Tawana thinks this could be good for pt if she does not improve, MARCIAL advised [facility] can discuss this with Tawana and help facilitate this if needed. Tawana is not sure if pt has LTC benefits, and is trying to find out about her policy. MARCIAL phoned and faxed referral to [facility]. MARCIAL will continue to follow. RN notified. Addendum: 05/02/18 at 1601 by YANICK CEJA Pt is from [facility].
[2018-05-02 19:44] VITALS: BP 145/86
[2018-05-02] MEDS: DONEPEZIL HCL 10 MG TABLET. PO SCH (21:22)
[2018-05-02] MEDS: LACTOBACILLUS RHAMNOSUS GG 1 CAPSULE. PO SCH (21:22)
[2018-05-02] MEDS: CITALOPRAM 20 MG TABLET. PO SCH (21:22)
--- NOTE | 2018-05-02 22:24 | CONS ---
DATE OF CONSULTATION: 05/02/2018 ATTENDING PHYSICIAN: Dr. Jeffrey.. REASON FOR CONSULTATION: The patient is seen in pulmonary consultation at the request of Dr. Jeffrey for increasing shortness of air. HISTORY OF PRESENT ILLNESS: The patient is an 83-year-old that somewhat of a poor historian. Her sister who is a primary caregiver checks on her every day. The patient lives by herself. Sister noticed some decreased level of consciousness, decreased mentation, weakness. She also had some audible wheezing and cough productive of some discolored sputum. The patient has never smoked. She was told she has COPD. She is up-to-date on flu and pneumonia vaccination. She had a chest x-ray, which revealed no acute infiltrates. I was asked to see her in consultation for further evaluation and management. The patient denies being short of breath. No chest pain. No pressure. PAST MEDICAL HISTORY: Dementia, arthritis, hyperlipidemia, osteoporosis. PAST SURGICAL HISTORY: She has had a previous broken wrist. REVIEW OF SYSTEMS: Unobtainable secondary to the patient's condition. She has dementia. Otherwise, I spoke with the sister as indicated in the history of present illness. ALLERGIES: No known drug allergies. CURRENT MEDICATIONS: List was reviewed. Home medication list was reviewed. PHYSICAL EXAMINATION: VITAL SIGNS: Stable. O2 saturation was greater than 92%. HEENT: Eyes, the sclerae were nonicteric. NECK: Jugular venous distention was not elevated. No lymphadenopathy. CHEST: Full expansion. LUNGS: Adequate airway flow, no wheezes. CARDIOVASCULAR: Regular rate and rhythm with S1, S2, no S3. ABDOMEN: Soft, nontender, nondistended. EXTREMITIES: No clubbing, cyanosis or edema. NEUROLOGIC: The patient was awake, alert, following commands. A detailed neuro exam was not performed. LABORATORY DATA: Reviewed. White count was noted. Serology for influenza was negative. UA revealed some wbc's, leukocyte esterase was negative. Troponin level was negative. Electrolytes were normal. White count was normal. IMPRESSION: 1. Acute exacerbation of chronic obstructive pulmonary disease, apparently the patient carries a diagnosis of chronic obstructive pulmonary disease. 2. Acute nonspecific bronchitis. 3. Possible aspiration. 4. Metabolic/toxic encephalopathy, present upon admission. PLAN: 1. Steroids and antibiotics. 2. Speech evaluation. 3. Nebulized treatments. I do appreciate the privilege in sharing in the patient's care. CHRISTOPHER DENIS MD DR: MARGARET/umesh JOB#: [id number] / [id number]
[2018-05-02 23:21] VITALS: BP 153/90
[2018-05-03 03:19] VITALS: BP 142/79
[2018-05-03 07:15] VITALS: BP 156/76
[2018-05-03] MEDS ORDERED: ACETAMINOPHEN 325 MG TABLET. PO PRN (07:30)
[2018-05-03] MEDS: ALBUTEROL SULFATE 2.5 MG/3 ML NEBU. NEB SCH ×3 (07:39→16:17)
[2018-05-03] MEDS: CALCIUM CARBONATE 500 MG TABLET PO SCH (08:28)
[2018-05-03] MEDS: DOXYCYCLINE HYCLATE 100 MG TABLET PO SCH (08:28)
[2018-05-03] MEDS: LACTOBACILLUS RHAMNOSUS GG 1 CAPSULE. PO SCH (08:28)
[2018-05-03] MEDS: amLODIPine BESYLATE 5 MG TABLET PO SCH (08:28)
[2018-05-03] MEDS: MELOXICAM 7.5 MG TABLET PO SCH (08:29)
[2018-05-03] MEDS: methylPREDNISolone SOD SUCC PF 40 MG/ML VIAL. IV SCH (08:31)
--- NOTE | 2018-05-03 08:53 | NUR ---
MARCIAL following pt. [facility] has been accepted [facility] pending insurance approval. Ruthie will be submitting for auth. Will continue to follow.
--- NOTE | 2018-05-03 09:22 | PDOC ---
PULMONARY PROGRESS NOTES Subjective Patient with no respiratory complaints Vitals Vital Signs Date Time Temp Pulse Resp B/P (MAP) Pulse Ox O2 Delivery O2 Flow Rate FiO2 05/03/18 08:28 74 156/76 05/03/18 08:00 Room Air 05/03/18 07:40 91 05/03/18 07:15 97.9 16 97.9 ROS: No Nausea, No Chest Pain, No Abdominal Pain, No Increase Cough General: Alert Lungs: Clear Cardiovascular: S1, S2 Abdomen: Soft Neuro Exam: Alert Extremities: No Edema Skin: Warm Medications Active Scripts Medications Dose Route/Sig Max Daily Dose Days Date Category Calcium + Vitamin D Tablet (Calcium Carbonate/Vitamin D3) 1 Each Tablet 1 Each PO BID 05/01/18 Reported Prolia (Denosumab) 60 Mg/1 Ml Disp.syrin 60 Mg SQ [id number] 05/01/18 Reported Memantine HCl 10 Mg Tablet 10 Mg PO BID 05/01/18 Reported Proair Respiclick (Albuterol Sulfate) 90 Mcg Aer.pow.ba 2 Puff IH PRN Q6HRS PRN 05/01/18 Reported Meloxicam 7.5 Mg Tablet 7.5 Mg PO DAILY 05/01/18 Reported Imodium A-D (Loperamide HCl) 2 Mg Capsule 2 Mg PO PRN TID PRN 06/08/16 Rx Celexa (Citalopram Hydrobromide) 40 Mg Tablet 1 Tab PO DAILY 06/06/16 Reported Aricept (Donepezil Hcl) 10 Mg Tablet 1 Tab PO DAILY 06/06/16 Reported Impression . IMPRESSION: 1. Acute exacerbation of chronic obstructive pulmonary disease, apparently the patient carries a diagnosis of chronic obstructive pulmonary disease. 2. Acute nonspecific bronchitis. 3. Possible aspiration. 4. Metabolic/toxic encephalopathy, present upon admission. Plan . discussed with speech, needs mechanical soft diet OK to transfer to longterm facility discussed with sister CHRISTOPHER DENIS MD May 03, 2018 09:22
[2018-05-03 11:20] VITALS: BP 164/79
--- NOTE | 2018-05-03 11:45 | NUR ---
SW following pt. Spoke with pt's sister Tawana and notified them pt has been accepted at [facility]. Tawana aware we are waiting on insurance auth. Will continue to follow.
[2018-05-03] MEDS ORDERED: LACT1CAP19 PO (14:22)
[2018-05-03] MEDS ORDERED: AMLO5TAB10 PO (14:22)
[2018-05-03] MEDS ORDERED: PRED50TA PO (14:22)
[2018-05-03] MEDS ORDERED: DOXY100T PO (14:22)
--- NOTE | 2018-05-03 14:22 | SNU/HH DC ---
DISCHARGE ORDERS DISCHARGE INFORMATION: DISCHARGE DATE: May 03, 2018 FINAL DIAGNOSIS Problems Medical Problems: (1) Generalized weakness Status: Acute CONDITION ON DISCHARGE: Stable USP: SNF STAY <30 DAYS: Yes POST DISCHARGE ORDERS: ACTIVITY ORDERS: Activity as tolerated WEIGHT BEARING STATUS: As tolerated DIET AFTER DISCHARGE: Regular TREATMENT/EQUIPMENT ORDERS: Physical Therapy For: Evalulation/Treatment Occupational Therapy For: Evaluation/Treatment DISCHARGE MEDICATIONS: Home Meds Active Scripts Prednisone (PREDNISONE) 50 Mg Tablet, 1 TAB PO DAILY for bronchitis, #5 TAB Prov:KAYLA VEGA MD 05/03/18 Lactobacillus Rhamnosus Gg (CULTURELLE) 1 Each Cap.sprink, 1 CAP PO BID for probiotic for 30 Days, #60 CAP Prov:KAYLA VEGA MD 05/03/18 Amlodipine Besylate (AMLODIPINE BESYLATE) 5 Mg Tablet, 5 MG PO DAILY for HTN for 30 Days, #30 TAB Prov:KAYLA VEGA MD 05/03/18 Doxycycline Hyclate (DOXYCYCLINE HYCLATE) 100 Mg Tablet, 100 MG PO BID for bronchitis for 5 Days, #10 TAB Prov:KAYLA VEGA MD 05/03/18 Loperamide HCl (Imodium A-D) 2 Mg Capsule, 2 MG PO PRN TID PRN for DIARRHEA, #1 CAP Prov:OSMEL RIVERA MD 06/08/16 Reported Medications Calcium Carbonate/Vitamin D3 (CALCIUM + VITAMIN D TABLET) 1 Each Tablet, 1 EACH PO BID for supplement, TAB 05/01/18 Denosumab (PROLIA) 60 Mg/1 Ml Disp.syrin, 60 MG SQ [id number] for Osteoporosis, DIS.SYR 05/01/18 Memantine HCl (Memantine HCl) 10 Mg Tablet, 10 MG PO BID for memory 05/01/18 Albuterol Sulfate (Proair Respiclick) 90 Mcg Aer.pow.ba, 2 PUFF IH PRN Q6HRS PRN for SHORTNESS OF BREATH, INHALER 05/01/18 Meloxicam (MELOXICAM) 7.5 Mg Tablet, 7.5 MG PO DAILY for pain 05/01/18 Citalopram Hydrobromide (CELEXA) 40 Mg Tablet, 1 TAB PO DAILY for depression, # 30 TAB 1 Refill 06/06/16 Donepezil Hcl (ARICEPT) 10 Mg Tablet, 1 TAB PO DAILY for memory, #30 TAB 5 Refills 06/06/16 KAYLA VEGA MD May 03, 2018 14:22
--- NOTE | 2018-05-03 14:33 | NUR ---
MARCIAL following pt. Insurance approved SNU. Spoke with pt again about goals of SNU and pt agreeable. Pt's choice and rights forms signed by pt and copies placed in chart. [facility] faxed orders to [facility] and pt will transport via [facility] w/c van at 1730. MAR[facility] left a voice mail to pt's sister, Tawana regarding dc plan. Packet on chart. Discussed with RN.
[2018-05-03 15:20] VITALS: BP 143/77
--- NOTE | 2018-05-03 15:27 | NUR ---
Report called to Lilliana POE at [facility].
--- NOTE | 2018-05-03 15:44 | PDOC3 ---
Discharge Summary Visit Information Date of Admission: May 01, 2018 Date of Discharge: May 03, 2018 Admitting Diagnosis Comment: Weakness and failure to thrive Final Diagnosis Acute COPD exacerbation Weakness moderate to severe protein calorie malnutrition moderate dehydration resolved Brief Hospital Course Allergies Allergies Coded Allergies Type Severity Reaction Last Updated Verified No Known Drug Allergies 06/06/16 No Vital Signs Vital Signs Date Time Temp Pulse Resp B/P (MAP) Pulse Ox O2 Delivery O2 Flow Rate FiO2 05/03/18 12:20 Room Air 05/03/18 11:20 98.2 63 14 164/79 (107) 95 98.2 Brief Hospital Course Ms. Kc is a 83 old female who presented with weakness and shortness of breath she was treated with antibiotics an solu medrol. Patient also had mechanical falls at home with no evidence of fractures. She was seen in consultation by pulmonology steroids and broad-spectrum antibiotics were started on patient she seemed to respond well to therapy. Given her deconditioning and increased risk for falls adverse outcomes at home the patient will be going to a intermediate facility, he shouldn't initially was somewhat reluctant but once she understood the reasoning behind transition to a intermediate unit she was agreeable and will be continuing with recovery over there. I She wasn't good spirits to be dismissed signs and symptoms of alarm discussed prior to discharge all of her concerns were addressed to the best of my abilities with family at bedside as well Gen.: Thin looking in no apparent distress Head: Normal shape atraumatic Eyes: Pupils equal reactive to light and accommodation, normal conjunctivae and lids Ears: Normal shape Nose: Normal shape no trauma Mouth: No exudates of the back of throat no thrush no lesions Neck: Supple no JVD no carotid bruit or lymphadenopathy no thyromegaly Chest: Lungs clear to auscultation with good inspiratory effort no crackles rales or rhonchi Cardiovascular: S1-S2 regular rhythm no murmurs gallops or rubs Discharge Information Condition at Discharge: Improved Follow Up: Weeks Disposition/Orders: D/C to Another Facility Scheduled Amlodipine Besylate (Amlodipine Besylate) 5 Mg Tablet, 5 MG PO DAILY for HTN for 30 Days, #30 Prescribed by: KAYLA VEGA MD on 05/03/18 1422 Calcium Carbonate/Vitamin D3 (Calcium + Vitamin D Tablet) 1 Each Tablet, 1 EACH PO BID for supplement, (Reported) Entered as Reported by: IFEOMA WHITLOCK on 05/01/181412 Last Action: New Order on 05/01/181412 by IFEOMA WHITLOCK Citalopram Hydrobromide (Celexa) 40 Mg Tablet, 1 TAB PO DAILY for depression, # 30 Ref 1 (Reported) Entered as Reported by: KAM BROWN on 06/06/161710 Last Action: Edited on 05/01/181412 by IFEOMA WHITLOCK Denosumab (Prolia) 60 Mg/1 Ml Disp.syrin, 60 MG SQ [id number] for Osteoporosis, ( Reported) Entered as Reported by: IFEOMA WHITLOCK on 05/01/181412 Last Action: New Order on 05/01/181412 by IFEOMA WHITLOCK Donepezil Hcl (Aricept) 10 Mg Tablet, 1 TAB PO DAILY for memory, #30 Ref 5 ( Reported) Entered as Reported by: KAM BROWN on 06/06/161710 Last Action: Edited on 05/01/181412 by IFEOMA WHITLOCK Doxycycline Hyclate (Doxycycline Hyclate) 100 Mg Tablet, 100 MG PO BID for bronchitis for 5 Days, #10 Prescribed by: KAYLA VEGA MD on 05/03/181421 Lactobacillus Rhamnosus Gg (Culturelle) 1 Each Cap.sprink, 1 CAP PO BID for probiotic for 30 Days, #60 Prescribed by: KAYLA VEGA MD on 05/03/181421 Meloxicam (Meloxicam) 7.5 Mg Tablet, 7.5 MG PO DAILY for pain, (Reported) Entered as Reported by: IFEOMA WHITLOCK on 05/01/18 0736 Last Action: Converted on 05/01/181131 by ESTRELLA PATRICIO Memantine HCl (Memantine HCl) 10 Mg Tablet, 10 MG PO BID for memory, (Reported) Entered as Reported by: IFEOMA WHITLOCK on 05/01/181412 Last Action: New Order on 05/01/181412 by IFEOMA WHITLOCK Prednisone (Prednisone) 50 Mg Tablet, 1 TAB PO DAILY for bronchitis, #5 Prescribed by: KYALA VEGA MD on 05/03/181421 Scheduled PRN Albuterol Sulfate (Proair Respiclick) 90 Mcg Aer.pow.ba, 2 PUFF IH PRN Q6HRS PRN for SHORTNESS OF BREATH, (Reported) Entered as Reported by: ESTRELLA PATRICIO on 05/01/181128 Last Taken: UNKNOWN on Unknown Date & Time Last Action: Converted on 1131 by ESTRELLA PATRICIO Loperamide HCl (Imodium A-D) 2 Mg Capsule, 2 MG PO PRN TID PRN for DIARRHEA, #1 Prescribed by: OSMEL RIVERA on 06/08/16 0830 Last Action: Converted on 05/01/181131 by KAYLA KUMAR MD May 03, 2018 15:44
--- NOTE | 2018-05-03 17:10 | NUR ---
Discharge Note: [facility] [address] [place] [address] Discharge instructions and discharge home medications reviewed with Other facility and a copy given. All questions have been answered and understanding verbalized. The following instructions and handouts were given: Diet, activity, medication list and follow up instructions provided to [facility]. Discontinued lines and drains: Peripheral IV discontinued and catheter intact. [facility]
== END 2018-05-03 17:29 | DRG 190 ==
LOC: ER 22:32 → 2 NORTH 05-01 01:15 → 6 SOUTH 05-01 10:34
PROVIDERS: ADMIT Internal Medicine; ATTEND Internal Medicine
DX: J44.1 Chronic obstructive pulmonary disease with (acute) exacerbation (principal); G92 Toxic encephalopathy; E43 Unspecified severe protein-calorie malnutrition; Z68.1 Body mass index [BMI] 19.9 or less, adult; E78.5 Hyperlipidemia, unspecified; E86.0 Dehydration; M19.90 Unspecified osteoarthritis, unspecified site; J20.9 Acute bronchitis, unspecified; J44.0 Chronic obstructive pulmonary disease with (acute) lower respiratory infection; E78.00 Pure hypercholesterolemia, unspecified; F03.90 Unspecified dementia, unspecified severity, without behavioral disturbance, psychotic disturbance, mood disturbance, and anxiety; M81.0 Age-related osteoporosis without current pathological fracture; Z86.011 Personal history of benign neoplasm of the brain; Z82.49 Family history of ischemic heart disease and other diseases of the circulatory system
CPT/HCPCS: 36415; 70450; 71045; 80053; 81001; 82553; 83605; 83735; 83880; 84439; 84443; 84484; 85007; 85025; 87040; 87804; 93005; 94640; J2920; J7030; J7613; 92610; 97110; 97116; 97530; 97535; 99285-25

== ENCOUNTER → 2018-06-27 | Outpatient (CLI) | payer MEDICARE ==
[~2018-06-27] MED LIST changes: +AMLO5TAB10 PO; +CALC-98 PO; +DENO60DI SQ; +DOXY100T PO; +GADOTERATE 7.5 MMOL/15ML VIAL. IVP ONE; +HYDROmorphone 2 MG/ML VIAL IV PRN; +IV RINGERS,LACTATED 1000ML 1,000 ML IV SCH; +LACT1CAP19 PO; +MELO7.5T29 PO; +MEMA10TA20 PO; +MORPHINE SULFATE 2 MG/ML VIAL. IV PRN; +PRED50TA PO; +PROAIR RESPICL90 MCG IH; +PROCHLORPERAZINE 10 MG/2 ML VIAL. IV PRN; +fentaNYL PF VIAL 100 MCG/2 ML VIAL IV PRN
--- NOTE | 2018-06-27 12:07 | RAD ---
MRI Brain with and without contrast History: Meningioma Technique: Multiplanar, multi sequential pre and postcontrast MR imaging was performed of the brain. Comparison: March 08, 2017 Findings: There is again large enhancing extra-axial mass in the left frontal region, greatest size about 4.5 cm transverse by 4.8 cm AP by 4.5 cm CC. Size and morphology are unchanged. There is again some compression upon the adjacent left frontal parenchyma, no new associated gliosis or edema. There is no new parenchymal enhancement or evidence of recent infarct. There is again generalized supratentorial atrophy. Very mild deviation of the septum pellucidum to the right is unchanged. Very mild T2 and FLAIR hyperintense signal of the periventricular white matter greater on the right is unchanged as is a small focus of signal abnormality of the right basal ganglia. There is also similar mild T2 and FLAIR hyperintense signal abnormality of the yuval. There is some increased patchy [id number] fluid and thickening of the right mastoid air cells. There is preservation of the major arterial flow voids at the skull base. There is now inferior left maxillary sinus mucous retention cyst about 1.8 cm, very minimal maxillary sinus mucosal thickening bilaterally. There is similar very minimal patchy ethmoid air cell mucosal thickening bilaterally. There has been lens surgery bilaterally, somewhat disconjugate gaze as seen previously. There is some increased CSF signal the optic nerve sheaths bilaterally unchanged. Cerebellar tonsils are normal in location. Impression: 1. There is again evidence of meningioma in the left frontal region, overall size and morphology of the mass similar. No new mass is identified. There is again generalized supratentorial atrophy. Nonspecific mild T2 and FLAIR hyperintense signal abnormality of the supratentorial parenchyma and yuval is probably due to chronic microvascular ischemic disease, overall unchanged. 2. There is now some patchy fluid and thickening of the right mastoid air cells, also new left maxillary sinus mucous retention cyst and mild maxillary sinus mucosal thickening. Electronically signed by: Casey Chavez MD (06/27/2018 12:04 PM) [email or web address]
== END | disposition home or self-care (01) ==
LOC: MRI 10:27
PROVIDERS: ATTEND Psychiatry & Neurology Neurology with Special Qualifications in Child Neurology
DX: D32.0 Benign neoplasm of cerebral meninges (principal); I67.82 Cerebral ischemia; G31.89 Other specified degenerative diseases of nervous system; J34.1 Cyst and mucocele of nose and nasal sinus; J34.89 Other specified disorders of nose and nasal sinuses
CPT/HCPCS: 70553; A9575

== ENCOUNTER → 2018-07-17 | Outpatient (CLI) | payer MEDICARE ==
[~2018-07-17] MED LIST changes: -GADOTERATE 7.5 MMOL/15ML VIAL. IVP ONE; -HYDROmorphone 2 MG/ML VIAL IV PRN; -IV RINGERS,LACTATED 1000ML 1,000 ML IV SCH; -MORPHINE SULFATE 2 MG/ML VIAL. IV PRN; -PROCHLORPERAZINE 10 MG/2 ML VIAL. IV PRN; -fentaNYL PF VIAL 100 MCG/2 ML VIAL IV PRN
--- NOTE | 2018-07-17 15:34 | KCIC ---
CHEST PA LATERAL History: Cough for a few years Comparison: April 30, 2018 Findings: 2 views of the chest are submitted. There is again granuloma of the right lower lobe. There is no new infiltrate, pleural fluid, pneumothorax. Heart size is stable, within normal limits. There is again mid thoracic levoscoliosis and lumbar dextroscoliosis. There is mild superior height loss of a mid thoracic vertebral body as seen on previous 2017 exam. Impression: 1. No acute radiographic abnormality is identified. Electronically signed by: Casey Chavez MD (07/17/2018 3:31 PM) [email or web address]
== END | disposition home or self-care (01) ==
LOC: KCIC 14:55
PROVIDERS: ATTEND Family Medicine
DX: J84.10 Pulmonary fibrosis, unspecified (principal)
CPT/HCPCS: 71046

== ENCOUNTER 2018-10-23 15:37 | Observation (INO) | payer MEDICARE ==
[2018-10-22 19:00] VITALS: BP 125/79
[~2018-10-23] VITALS: Ht 158.8 cm; Wt 49.7 kg
[2018-10-23] MEDS ORDERED: IV NORMAL SALINE 1000ML BAG 1,000 ML IV ONE ×2 (16:00→17:30)
[2018-10-23 16:01] LABS: BILIRUBIN,URINE SMALL (NEG); CLARITY,URINE CLEAR; COLOR,URINE YELLOW; NITRITE,URINE NEGATIVE (NEG); PROTEIN,URINE 30 mg/dL (NEG-TRACE); UROBILINOGEN,URINE 0.2 mg/dL (0.2 mg/dL)
[2018-10-23 16:08] LABS: AMPHETAMINE/METHAMPHETAMINE NEG (NEG); BARBITURATES NEG (NEG); BENZODIAZEPINES NEG (NEG); CANNABINOIDS NEG (NEG); COCAINE NEG (NEG); METHADONE NEG (NEG); OPIATES NEG (NEG); PHENCYCLIDINE NEG (NEG)
[2018-10-23 16:11] LABS: BASO # 0.1 x10^3/uL (0.0-0.2); BASO % 1 % (0-3); EOS # 0.5 x10^3/uL (0.0-0.7); EOS % 4 % (0-3); HEMATOCRIT 42.7 % (36.0-47.0); HEMOGLOBIN 14.5 g/dL (12.0-15.5); LYMPH # 1.1 x10^3/uL (1.0-4.8); LYMPH % 10 % (24-48); MEAN CORPUSCULAR HEMOGLOBIN 29 pg (25-35); MEAN CORPUSCULAR HGB CONC 34 g/dL (31-37); MEAN CORPUSCULAR VOLUME 86 fL (79-100); MONO # 0.8 x10^3/uL (0.0-1.1); MONO % 7 % (0-9); NEUT # 8.5 x10^3/uL (1.8-7.7); NEUT % 78 % (31-73); PLATELET COUNT 421 x10^3/uL (140-400); RED BLOOD COUNT 4.99 x10^6/uL (3.50-5.40); RED CELL DISTRIBUTION WIDTH 14.4 % (11.5-14.5); WHITE BLOOD COUNT 10.9 x10^3/uL (4.0-11.0)
[2018-10-23 16:13] LABS: AMORPHOUS SEDIMENT,UR PRESENT /HPF; BACTERIA,URINE 0 /HPF (0-FEW); HYALINE CASTS, URINE MODERATE /HPF; RBC,URINE 0 /HPF (0-2); WBC,URINE 0 /HPF (0-4)
--- NOTE | 2018-10-23 16:16 | RAD ---
EXAM: Abdomen, 2 views. HISTORY: Pain. COMPARISON: 06/06/2016 FINDINGS: Frontal upright and supine views of the abdomen are obtained. There are nonspecific air-filled loops of bowel throughout the abdomen. There is no convincing transition point to suggest obstruction.. There is lumbar scoliosis. There is a calcified granuloma within the right lower lobe. There are healed pubic rami fractures. There are healed rib fractures. There is a chronic superior endplate compression deformity at L5. IMPRESSION: Nonspecific bowel gas pattern, without a transition point to suggest obstruction. Electronically signed by: Graciela You MD (10/23/2018 4:13 PM) [place] [id number]
[2018-10-23 16:25] LABS: ALBUMIN 3.4 g/dL (3.4-5.0); ALBUMIN/GLOBULIN RATIO 0.9 (1.0-1.7); CALCIUM 9.7 mg/dL (8.5-10.1); CREATININE 1.3 mg/dL (0.6-1.0); GFR 39.1; POTASSIUM 4.2 mmol/L (3.5-5.1); TOTAL BILIRUBIN 0.4 mg/dL (0.2-1.0); TOTAL PROTEIN 7.3 g/dL (6.4-8.2)
[2018-10-23] MEDS ORDERED: FAMOTIDINE 20 MG/2 ML VIAL IVP ONE (16:30)
[2018-10-23] MEDS ORDERED: ONDANSETRON PF 4 MG/2 ML VIAL. IV ONE (16:30)
[2018-10-23] MEDS ORDERED: NON FORMULARY ITEM (Albuterol Sulfate (Proair Respiclick) 2 PUFF) IH PRN (17:15)
[2018-10-23] MEDS ORDERED: LOPERAMIDE 2 MG CAPSULE PO PRN (17:15)
[2018-10-23] MEDS ORDERED: ACETAMINOPHEN 500 MG TABLET PO PRN (17:30)
[2018-10-23] MEDS ORDERED: ONDANSETRON PF 4 MG/2 ML VIAL. IV PRN ×2 (17:30)
[2018-10-23] MEDS ORDERED: ACETAMINOPHEN 325 MG TABLET. PO PRN (17:30)
[2018-10-23] MEDS ORDERED: TEMAZEPAM 7.5 MG CAPSULE PO PRN (17:30)
[2018-10-23] MEDS ORDERED: HYDROcodone/APAP 5/325MG 1 TAB TABLET PO PRN (17:30)
[2018-10-23] MEDS ORDERED: ALBUTEROL SULFATE 2.5 MG/3 ML NEBU. NEB PRN (17:30)
--- NOTE | 2018-10-23 17:41 | PDOC1 ---
History and Physical Date of Admission Date of Admission DATE: 10/23/18 TIME: 17:36 Identification/Chief Complaint Chief Complaint n,.v,.d abd pain x 5 days Source Source: Caregiver, Chart review, Patient History of Present Illness History of Present Illness 83 white female, lives at home,a enrico CC x 5 days, maybe nore tahn 5 x diarrhea in a day, they think from bad food she ate 5 days ago, also mentions manidble infection that needs to be taken cared of. ELytes good except mild ELENA 1.3, Abd xray normal gas bowel pattern, Was about to be sent home but sister came and adamant pt be admitted, wants to be hydrated etc Past Medical History Cardiovascular: HTN, Hyperlipidemia Pulmonary: No pertinent hx GI: No pertinent hx Heme/Onc: No pertinent hx Hepatobiliary: No pertinent hx Psych: No pertinent hx, Depression Rheumatologic: No pertinent hx Infectious disease: No pertinent hx Renal/: No pertinent hx Endocrine: Osteoporosis Past Surgical History Past Surgical History: Other Family History Family History: No Significant Social History Smoke: No ALCOHOL: none Drugs: None Current Medications Current Medications Current Medications Ondansetron HCl (Zofran) 4 mg 1X ONCE IV Last administered on 10/23/18at 17:16; Start 10/23/18 at 16:30; Stop 10/23/18 at 16:31; Status DC Famotidine (Pepcid Vial) 20 mg 1X ONCE IVP Last administered on 10/23/18at 17:16; Start 10/23/18 at 16:30; Stop 10/23/18 at 16:31; Status DC Sodium Chloride 1,000 ml @ 1,000 mls/hr 1X ONCE IV Last administered on 10/23/18at 17:16; Start 10/23/18 at 16:00; Stop 10/23/18 at 16:59; Status DC Amlodipine Besylate (Norvasc) 5 mg DAILY PO ; Start 10/24/18 at 09:00 Donepezil HCl (Aricept) 10 mg DAILY PO ; Start 10/24/18 at 09:00 Lactobacillus Rhamnosus (Culturelle) 1 cap BID PO ; Start 10/23/18 at 21:00 Loperamide HCl (Imodium) 2 mg PRN TID PRN PO DIARRHEA; Start 10/23/18 at 17:15 Meloxicam (Mobic) 7.5 mg DAILY PO ; Start 10/24/18 at 09:00 Memantine (Namenda) 10 mg BID PO ; Start 10/23/18 at 21:00 Non-Formulary Medication (Albuterol Sulfate (Proair Respiclick)) 2 puff PRN Q6HRS PRN IH SHORTNESS OF BREATH; Start 10/23/18 at 17:15; Stop 10/23/18 at 17:33; Status DC Calcium/Vitamin D (Oscal D 500mg/ 200uts) 1 tab BIDWMEALS PO ; Start 10/23/18 at 21:00 Citalopram Hydrobromide (CeleXA) 40 mg DAILY PO ; Start 10/24/18 at 09:00 Sodium Chloride 1,000 ml @ 75 mls/hr [id number] IV ; Start 10/23/18 at 17:30 Temazepam (Restoril) 7.5 mg PRN QHS PRN PO INSOMNIA; Start 10/23/18 at 17:30 Acetaminophen/ Hydrocodone Bitart (Lortab 5/325) 1 tab PRN Q4HRS PRN PO PAIN; Start 10/23/18 at 17:30 Acetaminophen (Tylenol) 500 mg PRN Q6HRS PRN PO MILD PAIN / TEMP; Start 10/23/18 at 17:30 Ondansetron HCl (Zofran) 4 mg PRN Q6HRS PRN IV NAUSEA/VOMITING; Start 10/23/18 at 17:30 Ondansetron HCl (Zofran) 4 mg PRN Q8HRS PRN IV NAUSEA/VOMITING; Start 10/23/18 at 17:30; Stop 10/24/18 at 17:29 Acetaminophen (Tylenol) 650 mg PRN Q4HRS PRN PO FEVER; Start 10/23/18 at 17:30; Stop 10/24/18 at 17:29 Sodium Chloride 1,000 ml @ 75 mls/hr 1X ONCE IV ; Start 10/23/18 at 17:30; Stop 10/24/18 at 06:49 Albuterol Sulfate (Ventolin Neb Soln) 2.5 mg PRN Q6HRS PRN NEB SOA; Start 10/23/18 at 17:30 Active Scripts Active Prednisone 50 Mg Tablet 1 Tab PO DAILY Culturelle (Lactobacillus Rhamnosus Gg) 1 Each Cap.sprink 1 Cap PO BID 30 Days Amlodipine Besylate 5 Mg Tablet 5 Mg PO DAILY 30 Days Doxycycline Hyclate 100 Mg Tablet 100 Mg PO BID 5 Days Imodium A-D (Loperamide HCl) 2 Mg Capsule 2 Mg PO PRN TID PRN Reported Calcium + Vitamin D Tablet (Calcium Carbonate/Vitamin D3) 1 Each Tablet 1 Each PO BID Prolia (Denosumab) 60 Mg/1 Ml Disp.syrin 60 Mg SQ [id number] Memantine HCl 10 Mg Tablet 10 Mg PO BID Proair Respiclick (Albuterol Sulfate) 90 Mcg Aer.pow.ba 2 Puff IH PRN Q6HRS PRN Meloxicam 7.5 Mg Tablet 7.5 Mg PO DAILY Celexa (Citalopram Hydrobromide) 40 Mg Tablet 1 Tab PO DAILY Aricept (Donepezil Hcl) 10 Mg Tablet 1 Tab PO DAILY Allergies Allergies: Coded Allergies: No Known Drug Allergies (Unverified , 06/06/16) ROS Review of System as per HPI,a ll else 14 pt neg Physical Exam General: Alert, Oriented X3, Cooperative, No acute distress HEENT: Atraumatic, PERRLA, EOMI Lungs: Clear to auscultation, Normal air movement Heart: S1S2, RRR, no thrills, no rubs, no gallops, no murmurs Cardiovascular: S1, S2 Breasts: Normal, Rt breast nml w/o mass, Lt breast nml w/o mass, Nipples normal Abdomen: Soft, No tenderness, Other (hyperactve bs) Rectal Exam: not examined PELVIC: Nml ext genitalia Extremities: No clubbing, No cyanosis, No edema, Normal pulses, No tenderness/swelling Skin: No rashes, No breakdown, No significant lesion Neuro: Normal gait, Normal speech, Strength at 5/5 X4 ext, Normal tone, Sensation intact, Cranial nerves 3-12 NL, Reflexes 2+ Psych/Mental Status: Mental status NL, Mood NL Vitals Vitals Vital Signs Date Time Temp Pulse Resp B/P (MAP) Pulse Ox O2 Delivery O2 Flow Rate FiO2 10/23/18 17:17 78 16 168/84 (112) 94 Room Air Labs Labs Laboratory Tests Test 10/23/18 15:50 10/23/18 15:55 Urine Collection Type U cath Urine Color Yellow Urine Clarity Clear Urine pH 5.0 Urine Specific May 1.020 Urine Protein 30 mg/dL (NEG-TRACE) Urine Glucose (UA) Negative mg/dL (NEG) Urine Ketones (Stick) 15 mg/dL (NEG) Urine Blood Negative (NEG) Urine Nitrite Negative (NEG) Urine Bilirubin Small (NEG) Urine Urobilinogen Dipstick 0.2 mg/dL (0.2 mg/dL) Urine Leukocyte Esterase Negative (NEG) Urine RBC 0 /HPF (0-2) Urine WBC 0 /HPF (0-4) Urine Transitional Epithelial Cells Few /LPF Urine Amorphous Sediment Present /HPF Urine Bacteria 0 /HPF (0-FEW) Urine Hyaline Casts Moderate /HPF Urine Mucus Mod /LPF Urine Opiates Screen Neg (NEG) Urine Methadone Screen Neg (NEG) Urine Barbiturates Neg (NEG) Urine Phencyclidine Screen Neg (NEG) Urine Amphetamine/Methamphetamine Neg (NEG) Urine Benzodiazepines Screen Neg (NEG) Urine Cocaine Screen Neg (NEG) Urine Cannabinoids Screen Neg (NEG) Urine Ethyl Alcohol Neg (NEG) White Blood Count 10.9 x10^3/uL (4.0-11.0) Red Blood Count 4.99 x10^6/uL (3.50-5.40) Hemoglobin 14.5 g/dL (12.0-15.5) Hematocrit 42.7 % (36.0-47.0) Mean Corpuscular Volume 86 fL (79-100) Mean Corpuscular Hemoglobin 29 pg (25-35) Mean Corpuscular Hemoglobin Concent 34 g/dL (31-37) Red Cell Distribution Width 14.4 % (11.5-14.5) Platelet Count 421 x10^3/uL (140-400) Neutrophils (%) (Auto) 78 % (31-73) Lymphocytes (%) (Auto) 10 % (24-48) Monocytes (%) (Auto) 7 % (0-9) Eosinophils (%) (Auto) 4 % (0-3) Basophils (%) (Auto) 1 % (0-3) Neutrophils # (Auto) 8.5 x10^3/uL (1.8-7.7) Lymphocytes # (Auto) 1.1 x10^3/uL (1.0-4.8) Monocytes # (Auto) 0.8 x10^3/uL (0.0-1.1) Eosinophils # (Auto) 0.5 x10^3/uL (0.0-0.7) Basophils # (Auto) 0.1 x10^3/uL (0.0-0.2) Sodium Level 137 mmol/L (136-145) Potassium Level 4.2 mmol/L (3.5-5.1) Chloride Level 104 mmol/L (98-107) Carbon Dioxide Level 21 mmol/L (21-32) Anion Gap 12 (6-14) Blood Urea Nitrogen 33 mg/dL (7-20) Creatinine 1.3 mg/dL (0.6-1.0) Estimated GFR (Cockcroft-Gault) 39.1 BUN/Creatinine Ratio 25 (6-20) Glucose Level 88 mg/dL (70-99) Calcium Level 9.7 mg/dL (8.5-10.1) Total Bilirubin 0.4 mg/dL (0.2-1.0) Aspartate Amino Transf (AST/SGOT) 14 U/L (15-37) Alanine Aminotransferase (ALT/SGPT) 10 U/L (14-59) Alkaline Phosphatase 48 U/L (46-116) Total Protein 7.3 g/dL (6.4-8.2) Albumin 3.4 g/dL (3.4-5.0) Albumin/Globulin Ratio 0.9 (1.0-1.7) Lipase 254 U/L (73-393) Ethyl Alcohol Level < 10 mg/dL (0-10) Laboratory Tests Test 10/23/18 15:50 10/23/18 15:55 Urine Collection Type U cath Urine Color Yellow Urine Clarity Clear Urine pH 5.0 Urine Specific May 1.020 Urine Protein 30 mg/dL (NEG-TRACE) Urine Glucose (UA) Negative mg/dL (NEG) Urine Ketones (Stick) 15 mg/dL (NEG) Urine Blood Negative (NEG) Urine Nitrite Negative (NEG) Urine Bilirubin Small (NEG) Urine Urobilinogen Dipstick 0.2 mg/dL (0.2 mg/dL) Urine Leukocyte Esterase Negative (NEG) Urine RBC 0 /HPF (0-2) Urine WBC 0 /HPF (0-4) Urine Transitional Epithelial Cells Few /LPF Urine Amorphous Sediment Present /HPF Urine Bacteria 0 /HPF (0-FEW) Urine Hyaline Casts Moderate /HPF Urine Mucus Mod /LPF Urine Opiates Screen Neg (NEG) Urine Methadone Screen Neg (NEG) Urine Barbiturates Neg (NEG) Urine Phencyclidine Screen Neg (NEG) Urine Amphetamine/Methamphetamine Neg (NEG) Urine Benzodiazepines Screen Neg (NEG) Urine Cocaine Screen Neg (NEG) Urine Cannabinoids Screen Neg (NEG) Urine Ethyl Alcohol Neg (NEG) White Blood Count 10.9 x10^3/uL (4.0-11.0) Red Blood Count 4.99 x10^6/uL (3.50-5.40) Hemoglobin 14.5 g/dL (12.0-15.5) Hematocrit 42.7 % (36.0-47.0) Mean Corpuscular Volume 86 fL (79-100) Mean Corpuscular Hemoglobin 29 pg (25-35) Mean Corpuscular Hemoglobin Concent 34 g/dL (31-37) Red Cell Distribution Width 14.4 % (11.5-14.5) Platelet Count 421 x10^3/uL (140-400) Neutrophils (%) (Auto) 78 % (31-73) Lymphocytes (%) (Auto) 10 % (24-48) Monocytes (%) (Auto) 7 % (0-9) Eosinophils (%) (Auto) 4 % (0-3) Basophils (%) (Auto) 1 % (0-3) Neutrophils # (Auto) 8.5 x10^3/uL (1.8-7.7) Lymphocytes # (Auto) 1.1 x10^3/uL (1.0-4.8) Monocytes # (Auto) 0.8 x10^3/uL (0.0-1.1) Eosinophils # (Auto) 0.5 x10^3/uL (0.0-0.7) Basophils # (Auto) 0.1 x10^3/uL (0.0-0.2) Sodium Level 137 mmol/L (136-145) Potassium Level 4.2 mmol/L (3.5-5.1) Chloride Level 104 mmol/L (98-107) Carbon Dioxide Level 21 mmol/L (21-32) Anion Gap 12 (6-14) Blood Urea Nitrogen 33 mg/dL (7-20) Creatinine 1.3 mg/dL (0.6-1.0) Estimated GFR (Cockcroft-Gault) 39.1 BUN/Creatinine Ratio 25 (6-20) Glucose Level 88 mg/dL (70-99) Calcium Level 9.7 mg/dL (8.5-10.1) Total Bilirubin 0.4 mg/dL (0.2-1.0) Aspartate Amino Transf (AST/SGOT) 14 U/L (15-37) Alanine Aminotransferase (ALT/SGPT) 10 U/L (14-59) Alkaline Phosphatase 48 U/L (46-116) Total Protein 7.3 g/dL (6.4-8.2) Albumin 3.4 g/dL (3.4-5.0) Albumin/Globulin Ratio 0.9 (1.0-1.7) Lipase 254 U/L (73-393) Ethyl Alcohol Level < 10 mg/dL (0-10) VTE Prophylaxis Ordered VTE Prophylaxis Devices: Yes VTE Pharmacological Prophylaxi: Yes Assessment/Plan Assessment/Plan Acute gastroenteritis ELENA, VMN sec to GI losses REactive thrombocytosis (platelets 421) Dementia, depression NOS - stable PLAn: IV hydrate REg diet ok supprotive meds I have reconciled home meds FULL CODE Unasyn in back order - was going to address the mandibular infection - but can be ff up as OP by dentist OBS stay ELIZABETH JANE MD Oct 23, 2018 17:41
--- NOTE | 2018-10-23 17:44 | PHYS DOC ---
Past Medical History Past Medical History: Arthritis, Dementia, High Cholesterol Additional Past Medical Histor: osteoporosis, hx of pelvic fx Past Surgical History: Other Additional Past Surgical Histo: broken jaw, broken wrist Alcohol Use: None Drug Use: None Adult General Chief Complaint Chief Complaint: NAUSEA/VOMITING/DIARRHA [facility] HPI Patient is a 83 year old female with history of dementia, high cholesterol, who presents to the ED today complaining of nausea vomiting and diarrhea that began 2 days ago. She denies any fever. Denies any abdominal pain. Denies any chance she is constipated. Denies any chest pain or shortness of breath. She states she has a poor appetite. Denies any hematemesis or melena, patient is also on amoxicillin for dental procedure, amoxicillin will be stopped today. Review of Systems Review of Systems Constitutional: Denies fever or chills [] Eyes: Denies change in visual acuity, redness, or eye pain [] HENT: Denies nasal congestion or sore throat [] Respiratory: Denies cough or shortness of breath [] Cardiovascular: No additional information not addressed in HPI [] GI: Reports nausea, vomiting, diarrhea, denies any abdominal pain : Denies dysuria or hematuria [] Musculoskeletal: Denies back pain or joint pain [] Integument: Denies rash or skin lesions [] Neurologic: Denies headache, focal weakness or sensory changes [] Endocrine: Denies polyuria or polydipsia [] All other systems were reviewed and found to be within normal limits, except as documented in this note. Current Medications Current Medications Current Medications Medications (Trade) Dose Ordered Sig/Juan Start Time Stop Time Status Last Admin Dose Admin Acetaminophen (Tylenol) 650 mg PRN Q4HRS PRN 10/23/18 17:30 10/24/18 17:29 Acetaminophen/ Hydrocodone Bitart (Lortab 5/325) 1 tab PRN Q4HRS PRN 10/23/18 17:30 Albuterol Sulfate (Ventolin Neb Soln) 2.5 mg PRN Q6HRS PRN 10/23/18 17:30 Amlodipine Besylate (Norvasc) 5 mg DAILY 10/24/18 09:00 Calcium/Vitamin D (Oscal D 500mg/ 200uts) 1 tab BIDWMEALS 10/23/18 21:00 Citalopram Hydrobromide (CeleXA) 40 mg DAILY 10/24/18 09:00 Donepezil HCl (Aricept) 10 mg DAILY 10/24/18 09:00 Famotidine (Pepcid Vial) 20 mg 1X ONCE 10/23/18 16:30 10/23/18 16:31 DC 10/23/18 17:16 20 MG Lactobacillus Rhamnosus (Culturelle) 1 cap BID 10/23/18 21:00 Loperamide HCl (Imodium) 2 mg PRN TID PRN 10/23/18 17:15 Meloxicam (Mobic) 7.5 mg DAILY 10/24/18 09:00 Memantine (Namenda) 10 mg BID 10/23/18 21:00 Non-Formulary Medication (Albuterol Sulfate (Proair Respiclick)) 2 puff PRN Q6HRS PRN 10/23/18 17:15 10/23/18 17:33 DC Ondansetron HCl (Zofran) 4 mg PRN Q8HRS PRN 10/23/18 17:30 10/24/18 17:29 Sodium Chloride 1,000 ml @ 75 mls/hr 1X ONCE 10/23/18 17:30 10/24/18 06:49 Temazepam (Restoril) 7.5 mg PRN QHS PRN 10/23/18 17:30 Allergies Allergies Allergies Coded Allergies Type Severity Reaction Last Updated Verified No Known Drug Allergies 06/06/16 No Physical Exam Physical Exam Constitutional: Well developed, well nourished, no acute distress, non-toxic appearance. [] HENT: Normocephalic, atraumatic, bilateral external ears normal, oropharynx moist, no oral exudates, nose normal. [] Eyes: PERRLA, EOMI, conjunctiva normal, no discharge. [] Neck: Normal range of motion, no tenderness, supple, no stridor. [] Cardiovascular:Heart rate regular rhythm, no murmur [] Lungs & Thorax: Bilateral breath sounds clear to auscultation [] Abdomen: Bowel sounds normal, soft, no tenderness, no masses, no pulsatile masses. [] Skin: Warm, dry, no erythema, no rash. [] Back: No tenderness, no CVA tenderness. [] Extremities: No tenderness, no cyanosis, no clubbing, ROM intact, no edema. [] Neurologic: Alert and oriented X 3, normal motor function, normal sensory function, no focal deficits noted. [] Psychologic: Affect normal, judgement normal, mood normal. [] Current Patient Data Vital Signs Vital Signs Date Time Temp Pulse Resp B/P (MAP) Pulse Ox O2 Delivery O2 Flow Rate FiO2 10/23/18 17:17 78 16 168/84 (112) 94 Room Air Lab Values Laboratory Tests Test 10/23/18 15:50 10/23/18 15:55 Urine Collection Type U cath Urine Color Yellow Urine Clarity Clear Urine pH 5.0 Urine Specific [place] 1.020 Urine Protein 30 mg/dL (NEG-TRACE) Urine Glucose (UA) Negative mg/dL (NEG) Urine Ketones (Stick) 15 mg/dL (NEG) Urine Blood Negative (NEG) Urine Nitrite Negative (NEG) Urine Bilirubin Small (NEG) Urine Urobilinogen Dipstick 0.2 mg/dL (0.2 mg/dL) Urine Leukocyte Esterase Negative (NEG) Urine RBC 0 /HPF (0-2) Urine WBC 0 /HPF (0-4) Urine Transitional Epithelial Cells Few /LPF Urine Amorphous Sediment Present /HPF Urine Bacteria 0 /HPF (0-FEW) Urine Hyaline Casts Moderate /HPF Urine Mucus Mod /LPF Urine Opiates Screen Neg (NEG) Urine Methadone Screen Neg (NEG) Urine Barbiturates Neg (NEG) Urine Phencyclidine Screen Neg (NEG) Urine Amphetamine/Methamphetamine Neg (NEG) Urine Benzodiazepines Screen Neg (NEG) Urine Cocaine Screen Neg (NEG) Urine Cannabinoids Screen Neg (NEG) Urine Ethyl Alcohol Neg (NEG) White Blood Count 10.9 x10^3/uL (4.0-11.0) Red Blood Count 4.99 x10^6/uL (3.50-5.40) Hemoglobin 14.5 g/dL (12.0-15.5) Hematocrit 42.7 % (36.0-47.0) Mean Corpuscular Volume 86 fL (79-100) Mean Corpuscular Hemoglobin 29 pg (25-35) Mean Corpuscular Hemoglobin Concent 34 g/dL (31-37) Red Cell Distribution Width 14.4 % (11.5-14.5) Platelet Count 421 x10^3/uL (140-400) H Neutrophils (%) (Auto) 78 % (31-73) H Lymphocytes (%) (Auto) 10 % (24-48) L Monocytes (%) (Auto) 7 % (0-9) Eosinophils (%) (Auto) 4 % (0-3) H Basophils (%) (Auto) 1 % (0-3) Neutrophils # (Auto) 8.5 x10^3/uL (1.8-7.7) H Lymphocytes # (Auto) 1.1 x10^3/uL (1.0-4.8) Monocytes # (Auto) 0.8 x10^3/uL (0.0-1.1) Eosinophils # (Auto) 0.5 x10^3/uL (0.0-0.7) Basophils # (Auto) 0.1 x10^3/uL (0.0-0.2) Sodium Level 137 mmol/L (136-145) Potassium Level 4.2 mmol/L (3.5-5.1) Chloride Level 104 mmol/L (98-107) Carbon Dioxide Level 21 mmol/L (21-32) Anion Gap 12 (6-14) Blood Urea Nitrogen 33 mg/dL (7-20) H Creatinine 1.3 mg/dL (0.6-1.0) H Estimated GFR (Cockcroft-Gault) 39.1 BUN/Creatinine Ratio 25 (6-20) H Glucose Level 88 mg/dL (70-99) Calcium Level 9.7 mg/dL (8.5-10.1) Total Bilirubin 0.4 mg/dL (0.2-1.0) Aspartate Amino Transferase (AST) 14 U/L (15-37) L Alanine Aminotransferase (ALT) 10 U/L (14-59) L Alkaline Phosphatase 48 U/L (46-116) Total Protein 7.3 g/dL (6.4-8.2) Albumin 3.4 g/dL (3.4-5.0) Albumin/Globulin Ratio 0.9 (1.0-1.7) L Lipase 254 U/L (73-393) Ethyl Alcohol Level < 10 mg/dL (0-10) Laboratory Tests 10/23/18 15:55 Laboratory Tests 10/23/18 15:55 EKG EKG [] Radiology/Procedures Radiology/Procedures []PROCEDURE: ABDOMEN SUPINE & UPRIGHT EXAM: Abdomen, 2 views. HISTORY: Pain. COMPARISON: 06/06/2016 FINDINGS: Frontal upright and supine views of the abdomen are obtained. There are nonspecific air-filled loops of bowel throughout the abdomen. There is no convincing transition point to suggest obstruction.. There is lumbar scoliosis. There is a calcified granuloma within the right lower lobe. There are healed pubic rami fractures. There are healed rib fractures. There is a chronic superior endplate compression deformity at L5. IMPRESSION: Nonspecific bowel gas pattern, without a transition point to suggest obstruction. Electronically signed by: Graciela You MD (10/23/2018 4:13 PM) [place] [id number] DICTATED and SIGNED BY: GRACIELA YOU MD DATE: 10/23/18 1613 Course & Med Decision Making Course & Med Decision Making Pertinent Labs and Imaging studies reviewed. (See chart for details) This is a 83-year-old female patient who presents to the ED today with nausea vomiting and diarrhea that began 2 days ago. No abdominal pain. Urine analysis is negative for infection. Noted for slight dehydration. CBC with normal WBC, CMP with with creatinine of 1.3, BUN of 33. Patient was given 500 ML of IV fluids via EMS, given Zofran and Pepcid and normal saline in the ED. Abdominal x-ray negative for any acute findings. Talked to patient and family member regarding discharge versus admission. Family member states they want patient admitted because they feel patient will be returned back to the ED for the same symptoms as soon as she gets home because she is not eating. Spoke with Dr. Caldwell who accepted patient for admission. IV fluids will be continued. Dragon Disclaimer Dragon Disclaimer This electronic medical record was generated, in whole or in part, using a voice recognition dictation system. Departure Departure Impression: Primary Impression: Dehydration Additional Impressions: Nausea and vomiting Diarrhea Disposition: ADMITTED INPATIENT Condition: STABLE Referrals: OSMEL RIVERA MD (PCP) Problem Qualifiers Additional Impressions: Nausea and vomiting Vomiting type: unspecified Vomiting Intractability: non-intractable Qualified Codes: R11.2 - Nausea with vomiting, unspecified Diarrhea Diarrhea type: unspecified type Qualified Codes: R19.7 - Diarrhea, unspecified MUTUNGAJIM [employer] DEVELOPER Oct 23, 2018 17:44
[2018-10-23] MEDS: IV NORMAL SALINE 1000ML BAG 1,000 ML IV SCH (20:07)
[2018-10-23] MEDS: LACTOBACILLUS RHAMNOSUS GG 1 CAPSULE. PO SCH (22:40)
[2018-10-23] MEDS: MEMANTINE 10 MG TABLET. PO SCH (22:40)
[2018-10-23] MEDS: CALCIUM CARB/VIT D3 500/200 TABLET. PO SCH (22:40)
[2018-10-23 23:00] VITALS: BP 129/79
[2018-10-24 03:00] VITALS: BP 135/74
[2018-10-24 07:00] VITALS: BP 137/81
[2018-10-24] MEDS: IV NORMAL SALINE 1000ML BAG 1,000 ML IV SCH (08:43)
[2018-10-24] MEDS: LACTOBACILLUS RHAMNOSUS GG 1 CAPSULE. PO SCH (08:43)
[2018-10-24] MEDS: MEMANTINE 10 MG TABLET. PO SCH (08:44)
[2018-10-24] MEDS: CALCIUM CARB/VIT D3 500/200 TABLET. PO SCH (08:44)
--- NOTE | 2018-10-24 08:54 | NUR ---
SW following pt for dc planning. Chart reviewed and Pt lives at home. PT/OT pending. SW will await for PT/OT recommendation to assess skilled needs. Will continue to follow.
[2018-10-24 08:56] LABS: ALBUMIN 3.2 g/dL (3.4-5.0); ALBUMIN/GLOBULIN RATIO 0.9 (1.0-1.7); CALCIUM 8.5 mg/dL (8.5-10.1); POTASSIUM 4.3 mmol/L (3.5-5.1); TOTAL BILIRUBIN 0.4 mg/dL (0.2-1.0); TOTAL PROTEIN 6.8 g/dL (6.4-8.2)
[2018-10-24] MEDS ORDERED: DONEPEZIL HCL 10 MG TABLET. PO SCH (09:00)
[2018-10-24] MEDS ORDERED: CITALOPRAM 20 MG TABLET. PO SCH (09:00)
[2018-10-24] MEDS ORDERED: amLODIPine BESYLATE 5 MG TABLET PO SCH (09:00)
[2018-10-24] MEDS ORDERED: MELOXICAM 7.5 MG TABLET PO SCH (09:00)
[2018-10-24 10:39] LABS: BASO % 0 % (0-3); EOS # 0.5 x10^3/uL (0.0-0.7); EOS % 5 % (0-3); HEMATOCRIT 39.8 % (36.0-47.0); HEMOGLOBIN 13.2 g/dL (12.0-15.5); LYMPH # 0.9 x10^3/uL (1.0-4.8); LYMPH % 10 % (24-48); MEAN CORPUSCULAR HEMOGLOBIN 29 pg (25-35); MEAN CORPUSCULAR HGB CONC 33 g/dL (31-37); MEAN CORPUSCULAR VOLUME 87 fL (79-100); MONO # 0.6 x10^3/uL (0.0-1.1); MONO % 7 % (0-9); NEUT # 7.3 x10^3/uL (1.8-7.7); NEUT % 78 % (31-73); PLATELET COUNT 423 x10^3/uL (140-400); RED BLOOD COUNT 4.57 x10^6/uL (3.50-5.40); RED CELL DISTRIBUTION WIDTH 14.6 % (11.5-14.5); WHITE BLOOD COUNT 9.4 x10^3/uL (4.0-11.0)
[2018-10-24 11:00] VITALS: BP 141/89
--- NOTE | 2018-10-24 13:17 | SNU/HH DC ---
DISCHARGE WITH HOME HEALTH DISCHARGE INFORMATION: Final Diagnosis: Problems Medical Problems: (1) ELENA (acute kidney injury) Status: Acute (2) Dehydration Status: Acute (3) Diarrhea Status: Acute (4) Gastroenteritis Status: Acute (5) Nausea and vomiting Status: Acute Condition on Discharge: Stable CODE STATUS: Code Status: Full HOME HEALTH: Face to Face: I certify this patient is under my care and that I, or a nurse practitioner or physician's dyer assistant working with me, had a face to face encounter that meets the physician face to face encounter requirements with this patient on []. Medical Complications: Dementia RN For Eval/Treatment: Yes Physical Therapy For: Evalulation/Treatment Occupational Therapy For: Evaluation/Treatment Speech Language Pathology For: Evaluation/Treatment Home Health Aide For: Self-care MUSEUM ATTENDANT For: Community Resources Pt Meets Homebound Status: Poor coordination w/ amb. POST DISCHARGE ORDERS: Activity Instructions for Disc: Activity as tolerated Weight Bearing Status after Di: As tolerated DIET AFTER DISCHARGE: Regular CERTIFICATION STATEMENT: Certification Statement: Certification Statement: Based on the above finding, I certify that this patient is confined to the home and needs intermittent senior care care, physical therapy and/or speech therapy, or continues to need occupational therapy.~ This patient is under my care, and I have initiated the establishment of the plan of care.~ This patient will be followed by myself or a community physician who will periodically review the plan of care. Home Meds Active Scripts Prednisone (PREDNISONE) 50 Mg Tablet, 1 TAB PO DAILY for bronchitis, #5 TAB Prov:KAYLA VEGA MD 05/03/18 Lactobacillus Rhamnosus Gg (CULTURELLE) 1 Each Cap.sprink, 1 CAP PO BID for probiotic for 30 Days, #60 CAP Prov:KAYLA VEGA MD 05/03/18 Amlodipine Besylate (AMLODIPINE BESYLATE) 5 Mg Tablet, 5 MG PO DAILY for HTN for 30 Days, #30 TAB Prov:KAYLA VEGA MD 05/03/18 Doxycycline Hyclate (DOXYCYCLINE HYCLATE) 100 Mg Tablet, 100 MG PO BID for bronchitis for 5 Days, #10 TAB Prov:KAYLA VEGA MD 05/03/18 Loperamide HCl (Imodium A-D) 2 Mg Capsule, 2 MG PO PRN TID PRN for DIARRHEA, #1 CAP Prov:OSMEL RIVERA MD 06/08/16 Reported Medications Calcium Carbonate/Vitamin D3 (CALCIUM + VITAMIN D TABLET) 1 Each Tablet, 1 EACH PO BID for supplement, TAB 05/01/18 Denosumab (PROLIA) 60 Mg/1 Ml Disp.syrin, 60 MG SQ Q7loahlz for Osteoporosis, DIS.SYR 05/01/18 Memantine HCl (Memantine HCl) 10 Mg Tablet, 10 MG PO BID for memory 05/01/18 Albuterol Sulfate (Proair Respiclick) 90 Mcg Aer.pow.ba, 2 PUFF IH PRN Q6HRS PRN for SHORTNESS OF BREATH, INHALER 05/01/18 Meloxicam (MELOXICAM) 7.5 Mg Tablet, 7.5 MG PO DAILY for pain 05/01/18 Citalopram Hydrobromide (CELEXA) 40 Mg Tablet, 1 TAB PO DAILY for depression, #30 TAB 1 Refill 06/06/16 Donepezil Hcl (ARICEPT) 10 Mg Tablet, 1 TAB PO DAILY for memory, #30 TAB 5 Refills 06/06/16 ERICA ARELLANO III DO Oct 24, 2018 13:17
--- NOTE | 2018-10-24 14:09 | PDOC ---
[employer] PROGRESS NOTE Chief Complaint Chief Complaint Acute gastroenteritis ELENA HTN Hyperlipidemia Osteoporosis History of Present Illness History of Present Illness 10/24/18 Pt seen and examined at bedside; resting in bed comfortably Vitals/I&O Vitals/I&O: Vital Signs Date Time Temp Pulse Resp B/P (MAP) Pulse Ox O2 Delivery O2 Flow Rate FiO2 10/24/18 11:49 Room Air 10/24/18 11:00 98.5 79 16 141/89 (106) 91 98.5 I & O 10/23/18 10/23/18 10/24/18 15:00 23:00 07:00 Intake Total 1200 ml 400 ml Output Total 300 ml Balance 1200 ml 100 ml Physical Exam General: Alert, Oriented X3, Cooperative, No acute distress Heart: Regular rate, Normal S1 Lungs: Clear Abdomen: Soft, No tenderness, Other (hyperactve bs) Extremities: No clubbing, No cyanosis, No edema, Normal pulses, No tenderness/swelling Skin: No rashes, No breakdown, No significant lesion Labs Labs: Laboratory Tests Test 10/23/18 15:50 10/23/18 15:55 10/24/18 08:10 Urine Collection Type U cath Urine Color Yellow Urine Clarity Clear Urine pH 5.0 Urine Specific [place] 1.020 Urine Protein 30 mg/dL (NEG-TRACE) Urine Glucose (UA) Negative mg/dL (NEG) Urine Ketones (Stick) 15 mg/dL (NEG) Urine Blood Negative (NEG) Urine Nitrite Negative (NEG) Urine Bilirubin Small (NEG) Urine Urobilinogen Dipstick 0.2 mg/dL (0.2 mg/dL) Urine Leukocyte Esterase Negative (NEG) Urine RBC 0 /HPF (0-2) Urine WBC 0 /HPF (0-4) Urine Transitional Epithelial Cells Few /LPF Urine Amorphous Sediment Present /HPF Urine Bacteria 0 /HPF (0-FEW) Urine Hyaline Casts Moderate /HPF Urine Mucus Mod /LPF Urine Opiates Screen Neg (NEG) Urine Methadone Screen Neg (NEG) Urine Barbiturates Neg (NEG) Urine Phencyclidine Screen Neg (NEG) Urine Amphetamine/Methamphetamine Neg (NEG) Urine Benzodiazepines Screen Neg (NEG) Urine Cocaine Screen Neg (NEG) Urine Cannabinoids Screen Neg (NEG) Urine Ethyl Alcohol Neg (NEG) White Blood Count 10.9 x10^3/uL (4.0-11.0) 9.4 x10^3/uL (4.0-11.0) Red Blood Count 4.99 x10^6/uL (3.50-5.40) 4.57 x10^6/uL (3.50-5.40) Hemoglobin 14.5 g/dL (12.0-15.5) 13.2 g/dL (12.0-15.5) Hematocrit 42.7 % (36.0-47.0) 39.8 % (36.0-47.0) Mean Corpuscular Volume 86 fL (79-100) 87 fL (79-100) Mean Corpuscular Hemoglobin 29 pg (25-35) 29 pg (25-35) Mean Corpuscular Hemoglobin Concent 34 g/dL (31-37) 33 g/dL (31-37) Red Cell Distribution Width 14.4 % (11.5-14.5) 14.6 % (11.5-14.5) Platelet Count 421 x10^3/uL (140-400) 423 x10^3/uL (140-400) Neutrophils (%) (Auto) 78 % (31-73) 78 % (31-73) Lymphocytes (%) (Auto) 10 % (24-48) 10 % (24-48) Monocytes (%) (Auto) 7 % (0-9) 7 % (0-9) Eosinophils (%) (Auto) 4 % (0-3) 5 % (0-3) Basophils (%) (Auto) 1 % (0-3) 0 % (0-3) Neutrophils # (Auto) 8.5 x10^3/uL (1.8-7.7) 7.3 x10^3/uL (1.8-7.7) Lymphocytes # (Auto) 1.1 x10^3/uL (1.0-4.8) 0.9 x10^3/uL (1.0-4.8) Monocytes # (Auto) 0.8 x10^3/uL (0.0-1.1) 0.6 x10^3/uL (0.0-1.1) Eosinophils # (Auto) 0.5 x10^3/uL (0.0-0.7) 0.5 x10^3/uL (0.0-0.7) Basophils # (Auto) 0.1 x10^3/uL (0.0-0.2) 0.0 x10^3/uL (0.0-0.2) Erythrocyte Sedimentation Rate 20 (0-25) Sodium Level 137 mmol/L (136-145) 142 mmol/L (136-145) Potassium Level 4.2 mmol/L (3.5-5.1) 4.3 mmol/L (3.5-5.1) Chloride Level 104 mmol/L (98-107) 108 mmol/L (98-107) Carbon Dioxide Level 21 mmol/L (21-32) 25 mmol/L (21-32) Anion Gap 12 (6-14) 9 (6-14) Blood Urea Nitrogen 33 mg/dL (7-20) 20 mg/dL (7-20) Creatinine 1.3 mg/dL (0.6-1.0) 1.0 mg/dL (0.6-1.0) Estimated GFR (Cockcroft-Gault) 39.1 53.0 BUN/Creatinine Ratio 25 (6-20) 20 (6-20) Glucose Level 88 mg/dL (70-99) 85 mg/dL (70-99) Calcium Level 9.7 mg/dL (8.5-10.1) 8.5 mg/dL (8.5-10.1) Total Bilirubin 0.4 mg/dL (0.2-1.0) 0.4 mg/dL (0.2-1.0) Aspartate Amino Transf (AST/SGOT) 14 U/L (15-37) 14 U/L (15-37) Alanine Aminotransferase (ALT/SGPT) 10 U/L (14-59) 10 U/L (14-59) Alkaline Phosphatase 48 U/L (46-116) 45 U/L (46-116) Total Protein 7.3 g/dL (6.4-8.2) 6.8 g/dL (6.4-8.2) Albumin 3.4 g/dL (3.4-5.0) 3.2 g/dL (3.4-5.0) Albumin/Globulin Ratio 0.9 (1.0-1.7) 0.9 (1.0-1.7) Lipase 254 U/L (73-393) Ethyl Alcohol Level < 10 mg/dL (0-10) Review of Systems Review of Systems: denies headache denies vision change Assessment and Plan Assessmemt and Plan Problems Medical Problems: (1) ELENA (acute kidney injury) Status: Acute (2) Dehydration Status: Acute (3) Diarrhea Status: Acute (4) Gastroenteritis Status: Acute (5) Nausea and vomiting Status: Acute Assessment Acute gastroenteritis ELENA HTN Hyperlipidemia Osteoporosis Plan D/C today Encourage adequate fluid intake at home Continue home meds PT/OT Follow up with PCP Comment Review of Relevant I have reviewed the following items donovan (where applicable) has been applied. Medications: Current Medications Medications (Trade) Dose Ordered Sig/Juan Route PRN Reason Start Time Stop Time Status Last Admin Dose Admin Ondansetron HCl (Zofran) 4 mg 1X ONCE IV 10/23/18 16:30 10/23/18 16:31 DC 10/23/18 17:16 Famotidine (Pepcid Vial) 20 mg 1X ONCE IVP 10/23/18 16:30 10/23/18 16:31 DC 10/23/18 17:16 Sodium Chloride 1,000 ml @ 1,000 mls/hr 1X ONCE IV 10/23/18 16:00 10/23/18 16:59 DC 10/23/18 17:16 Amlodipine Besylate (Norvasc) 5 mg DAILY PO 10/24/18 09:00 10/24/18 08:45 Donepezil HCl (Aricept) 10 mg DAILY PO 10/24/18 09:00 10/24/18 08:45 Lactobacillus Rhamnosus (Culturelle) 1 cap BID PO 10/23/18 21:00 10/24/18 08:45 Meloxicam (Mobic) 7.5 mg DAILY PO 10/24/18 09:00 10/24/18 08:45 Memantine (Namenda) 10 mg BID PO 10/23/18 21:00 10/24/18 08:45 Calcium/Vitamin D (Oscal D 500mg/ 200uts) 1 tab BIDWMEALS PO 10/23/18 21:00 10/24/18 08:45 Citalopram Hydrobromide (CeleXA) 40 mg DAILY PO 10/24/18 09:00 10/24/18 08:45 Sodium Chloride 1,000 ml @ 75 mls/hr [id number] IV 10/23/18 17:30 10/24/18 08:45 ERICA ARELLANO III DO Oct 24, 2018 14:09
[2018-10-24 15:00] VITALS: BP 122/95
--- NOTE | 2018-10-24 15:12 | NUR ---
SW following pt. Pt lives at [facility] and discharging with home health. Orders faxed to [facility] and [facility] health. Spoke with JUSTO and also Shikha at the [facility] regarding dc. Pt is able to be transported by family. Discussed with RN.
--- NOTE | 2018-10-24 17:17 | NUR ---
Discharge Note: VADIM STARR Discharge instructions and discharge home medications reviewed with Other facility and a copy given. All questions have been answered and understanding verbalized. The following instructions and handouts were given: Discharge Instructions, Medication Lists, Follow Up Instructions Discontinued lines and drains: PIV removed, Catheter intact. Patient discharged to [facility] with Home Health Care via Private Vehicle
== END 2018-10-24 15:30 | disposition home or self-care (01) ==
LOC: ER 15:37 → 5 SOUTH 17:17 → INTOOBSV 17:17
PROVIDERS: ADMIT Internal Medicine; ATTEND Internal Medicine
DX: K52.9 Noninfective gastroenteritis and colitis, unspecified (principal); R11.2 Nausea with vomiting, unspecified; I10 Essential (primary) hypertension; E78.5 Hyperlipidemia, unspecified; F32.9 Major depressive disorder, single episode, unspecified; M81.0 Age-related osteoporosis without current pathological fracture; N17.9 Acute kidney failure, unspecified; R79.89 Other specified abnormal findings of blood chemistry; F03.90 Unspecified dementia, unspecified severity, without behavioral disturbance, psychotic disturbance, mood disturbance, and anxiety; E78.00 Pure hypercholesterolemia, unspecified; E86.0 Dehydration
CPT/HCPCS: 36415; 74021; 80053; 80307; 81001; 83690; 85025; 85651; 87045; 87493; 96361; 96374; 96375; 97110; 97116; 97162; 97166; 97530; 97535; 99284; G0378; G0480; J2405; J3490; J7030; G0379; 99285-25

== ENCOUNTER 2018-11-02 14:11 | Inpatient (IN) | payer MEDICARE ==
[~2018-11-02] VITALS: Ht 157.5 cm; Wt 49.6 kg
[~2018-11-02 14:11] MED LIST changes: +LOPE-101 PO; -LOPE2CAP88 PO
[2018-11-02] MEDS ORDERED: IV NORMAL SALINE 1000ML BAG 1,000 ML IV SCH (14:39)
--- NOTE | 2018-11-02 14:50 | PHYS DOC ---
Past Medical History Past Medical History: Arthritis, Bronchitis, COPD, Dementia, Depression, High Cholesterol, Hypertension Additional Past Medical Histor: osteoporosis, hx of pelvic fx,benign neoplasm of meninges Past Surgical History: Other Additional Past Surgical Histo: broken jaw, broken wrist Alcohol Use: None Drug Use: None Adult General Chief Complaint Chief Complaint: DEHYDRATION HPI HPI Patient is a 83 year old female resident of assisted living: who presents via EMS with complaining of diarrhea. Patient is alert and oriented �2 and history was taking from her sister. Patient's sister stated she has had episodes of nausea and vomiting and unable to eat for the last 2 weeks and was admitted in this hospital on October 23 for less than 24 hours and been treated for jaw infection with antibiotic while she was still not able to eat and drink. Patient was seen by increased 3 days ago on to diagnose of jaw infection was started on Augmentin but her condition became worse and had 2 episodes of diarrhea today with generalized weakness and brought in because of dehydration. Patient denies nausea and abdominal pain at arrival to ER. Review of Systems Review of Systems Constitutional: Denies fever or chills [] Eyes: Denies change in visual acuity, redness, or eye pain [] HENT: Denies nasal congestion or sore throat [] Respiratory: Denies cough or shortness of breath [] Cardiovascular: No additional information not addressed in HPI [] GI: Reports abdominal pain, nausea, vomiting, diarrhea [] : Denies dysuria or hematuria [] Musculoskeletal: Denies back pain or joint pain [] Integument: Denies rash or skin lesions [] Neurologic: Denies headache, focal weakness or sensory changes [] Endocrine: Denies polyuria or polydipsia [] All other systems were reviewed and found to be within normal limits, except as documented in this note. Current Medications Current Medications Current Medications Medications (Trade) Dose Ordered Sig/Juan Start Time Stop Time Status Last Admin Dose Admin Sodium Chloride 1,000 ml @ 1,000 mls/hr Q1H 11/02/18 14:39 11/02/18 15:38 DC 11/02/18 15:04 1,000 MLS/HR Allergies Allergies Allergies Coded Allergies Type Severity Reaction Last Updated Verified No Known Drug Allergies 06/06/16 No Physical Exam Physical Exam Constitutional: Well developed, well nourished, mild distress, non-toxic appearance. [] HENT: Normocephalic, atraumatic, dry oral mucosa. Eyes: PERRLA, EOMI, conjunctiva normal, no discharge. [] Neck: Normal range of motion, no tenderness, supple, no stridor. [] Cardiovascular:Heart rate regular rhythm, no murmur [] Lungs & Thorax: Bilateral breath sounds clear to auscultation [] Abdomen: Bowel sounds normal, soft, no tenderness, no masses, no pulsatile masses. [] Skin: Warm, dry, no erythema, no rash. [] Back: No tenderness, no CVA tenderness. [] Extremities: No tenderness, no cyanosis, no clubbing, ROM intact, no edema. [] Neurologic: Alert and oriented X 2, no focal deficits noted. [] Psychologic: Affect normal, judgement normal, mood normal. [] Current Patient Data Vital Signs Vital Signs Date Time Temp Pulse Resp B/P (MAP) Pulse Ox O2 Delivery O2 Flow Rate FiO2 11/02/18 14:12 98.4 67 18 154/80 (104) 93 Room Air 98.4 Lab Values Laboratory Tests Test 11/02/18 14:28 White Blood Count 15.1 x10^3/uL (4.0-11.0) H Red Blood Count 4.58 x10^6/uL (3.50-5.40) Hemoglobin 13.3 g/dL (12.0-15.5) Hematocrit 39.9 % (36.0-47.0) Mean Corpuscular Volume 87 fL (79-100) Mean Corpuscular Hemoglobin 29 pg (25-35) Mean Corpuscular Hemoglobin Concent 33 g/dL (31-37) Red Cell Distribution Width 14.5 % (11.5-14.5) Platelet Count 404 x10^3/uL (140-400) H Neutrophils (%) (Auto) 81 % (31-73) H Lymphocytes (%) (Auto) 8 % (24-48) L Monocytes (%) (Auto) 8 % (0-9) Eosinophils (%) (Auto) 2 % (0-3) Basophils (%) (Auto) 1 % (0-3) Neutrophils # (Auto) 12.2 x10^3/uL (1.8-7.7) H Lymphocytes # (Auto) 1.3 x10^3/uL (1.0-4.8) Monocytes # (Auto) 1.2 x10^3/uL (0.0-1.1) H Eosinophils # (Auto) 0.3 x10^3/uL (0.0-0.7) Basophils # (Auto) 0.1 x10^3/uL (0.0-0.2) Prothrombin Time 14.6 SEC (11.7-14.0) H Prothrombin Time INR 1.2 (0.8-1.1) H Urine Collection Type U cath Urine Color Yellow Urine Clarity Clear Urine pH 5.5 Urine Specific [place] 1.015 Urine Protein Negative mg/dL (NEG-TRACE) Urine Glucose (UA) Negative mg/dL (NEG) Urine Ketones (Stick) Negative mg/dL (NEG) Urine Blood Trace (NEG) Urine Nitrite Negative (NEG) Urine Bilirubin Negative (NEG) Urine Urobilinogen Dipstick 0.2 mg/dL (0.2 mg/dL) Urine Leukocyte Esterase Negative (NEG) Urine RBC 0 /HPF (0-2) Urine WBC 0 /HPF (0-4) Urine Squamous Epithelial Cells Occ /LPF Urine Bacteria 0 /HPF (0-FEW) Urine Hyaline Casts Occasional /HPF Urine Mucus Mod /LPF Sodium Level 137 mmol/L (136-145) Potassium Level 3.5 mmol/L (3.5-5.1) Chloride Level 102 mmol/L (98-107) Carbon Dioxide Level 27 mmol/L (21-32) Anion Gap 8 (6-14) Blood Urea Nitrogen 16 mg/dL (7-20) Creatinine 1.0 mg/dL (0.6-1.0) Estimated GFR (Cockcroft-Gault) 53.0 BUN/Creatinine Ratio 16 (6-20) Glucose Level 103 mg/dL (70-99) H Calcium Level 8.8 mg/dL (8.5-10.1) Total Bilirubin 0.4 mg/dL (0.2-1.0) Aspartate Amino Transferase (AST) 18 U/L (15-37) Alanine Aminotransferase (ALT) 13 U/L (14-59) L Alkaline Phosphatase 37 U/L (46-116) L Creatine Kinase 51 U/L (26-192) Total Protein 6.5 g/dL (6.4-8.2) Albumin 3.1 g/dL (3.4-5.0) L Albumin/Globulin Ratio 0.9 (1.0-1.7) L Lipase 293 U/L (73-393) Laboratory Tests 11/02/18 14:28 Laboratory Tests 11/02/18 14:28 EKG EKG EKG interpreted by me. EKG at 1420 showed normal sinus rhythm at rate of 70, left atrial abnormality, no acute ST and T-wave elevation. Radiology/Procedures Radiology/Procedures [] Course & Med Decision Making Course & Med Decision Making Pertinent Labs reviewed. (See chart for details) Evaluation of patient in ER showed 82-year-old female patient presented as a single living home brought in by EMS because of nausea and vomiting for 2 weeks and diarrhea for one day and currently on antibiotic for jaw infection. Unremarkable physical exam except for dry oral mucosa. Labs was unremarkable. Stool for C. difficile is pending. Plan to admit patient for treatment of gastroenteritis and possible long term or rehabilitation placement.Patient requiring admission for further evaluation and treatment. Discussed with Dr. marie who is in agreement with admission. Discussed findings and plan with patient and family, who acknowledge understanding and agreement. Dragon Disclaimer Dragon Disclaimer This electronic medical record was generated, in whole or in part, using a voice recognition dictation system. Departure Departure Impression: Primary Impression: Gastroenteritis Additional Impressions: Generalized weakness Leukocytosis Disposition: ADMITTED INPATIENT (Dr. Marie accepted admission at 1549) Admitting Physician: AMISH Condition: IMPROVED Referrals: OSMEL RIVERA MD (PCP) Problem Qualifiers KIM MAGANA MD Nov 02, 2018 14:50
[2018-11-02 14:54] LABS: BASO # 0.1 x10^3/uL (0.0-0.2); BASO % 1 % (0-3); EOS # 0.3 x10^3/uL (0.0-0.7); EOS % 2 % (0-3); HEMATOCRIT 39.9 % (36.0-47.0); HEMOGLOBIN 13.3 g/dL (12.0-15.5); LYMPH # 1.3 x10^3/uL (1.0-4.8); LYMPH % 8 % (24-48); MEAN CORPUSCULAR HEMOGLOBIN 29 pg (25-35); MEAN CORPUSCULAR HGB CONC 33 g/dL (31-37); MEAN CORPUSCULAR VOLUME 87 fL (79-100); MONO # 1.2 x10^3/uL (0.0-1.1); MONO % 8 % (0-9); NEUT # 12.2 x10^3/uL (1.8-7.7); NEUT % 81 % (31-73); PLATELET COUNT 404 x10^3/uL (140-400); RED BLOOD COUNT 4.58 x10^6/uL (3.50-5.40); RED CELL DISTRIBUTION WIDTH 14.5 % (11.5-14.5); WHITE BLOOD COUNT 15.1 x10^3/uL (4.0-11.0)
[2018-11-02 14:57] LABS: BILIRUBIN,URINE NEGATIVE (NEG); CLARITY,URINE CLEAR; COLOR,URINE YELLOW; NITRITE,URINE NEGATIVE (NEG); PH,URINE 5.5; PROTEIN,URINE NEGATIVE (NEG-TRACE); UROBILINOGEN,URINE 0.2 mg/dL (0.2 mg/dL)
[2018-11-02 15:09] LABS: CALCIUM 8.8 mg/dL (8.5-10.1); POTASSIUM 3.5 mmol/L (3.5-5.1)
[2018-11-02 15:15] LABS: ALBUMIN 3.1 g/dL (3.4-5.0); ALBUMIN/GLOBULIN RATIO 0.9 (1.0-1.7); TOTAL BILIRUBIN 0.4 mg/dL (0.2-1.0); TOTAL PROTEIN 6.5 g/dL (6.4-8.2)
--- NOTE | 2018-11-02 15:16 | EKG ---
[facility] [address] [place] [address] Test Date: 2018-11-02 Test Time: 14:20:01 Pat Name: VADIM STARR Department: Room: Gender: F Administrative Law Judge: : 1935 Requested By: KIM MAGANA Order Number: [id number] Reading MD: Measurements Intervals [place] Rate: 70 P: 35 NE: 134 QRS: 27 QRSD: 92 T: 52 QT: 408 QTc: 443 Interpretive Statements SINUS RHYTHM LEFT ATRIAL ABNORMALITY ABNORMAL ECG RI6.01 Unconfirmed report No previous ECG available for comparison
[2018-11-02 15:19] LABS: PROTHROMBIN TIME PATIENT 14.6 SEC (11.7-14.0)
[2018-11-02 15:41] LABS: BACTERIA,URINE 0 /HPF (0-FEW); HYALINE CASTS, URINE OCCASIONAL /HPF; RBC,URINE 0 /HPF (0-2); WBC,URINE 0 /HPF (0-4)
[2018-11-02 15:42] LABS: SQUAMOUS EPITHELIAL CELL,UR OCC /LPF
[2018-11-02 17:20] VITALS: BP 154/70
--- NOTE | 2018-11-02 17:21 | NUR ---
This RN received report from Chaya in the ER at approx 1710.
[2018-11-02] MEDS ORDERED: LOPERAMIDE 2 MG CAPSULE PO PRN (18:00)
[2018-11-02] MEDS ORDERED: NON FORMULARY ITEM (Albuterol Sulfate (Proair Respiclick) 2 PUFF) IH PRN (18:00)
[2018-11-02] MEDS ORDERED: ALBUTEROL SULFATE 2.5 MG/3 ML NEBU. NEB PRN (18:15)
[2018-11-02 19:00] VITALS: BP 140/84
[2018-11-02] MEDS ORDERED: C.DIFF MED SCREEN BY RX. MC ONE (19:45)
[2018-11-02] MEDS: IV NORMAL SALINE 1000ML BAG 1,000 ML IV SCH (19:59)
--- NOTE | 2018-11-02 20:08 | PDOC1 ---
History and Physical Date of Admission Date of Admission DATE: 11/02/18 TIME: 20:04 Source Source: Chart review, Patient History of Present Illness History of Present Illness Ms. Kc is a 83 year old female resident of assisted living: she is demented and her sister assists with this history. Came to the ER by EMS for diarrhea, abd pain, not eating for days. . Patient is alert but very flat affect and does not offer much Patient's sister stated she has had episodes of nausea and vomiting and unable to eat for the last 2 weeks and was admitted in this hospital on October 23 for less than 24 hours and been treated for jaw infection with antibiotic while she was still not able to eat and drink. her dentist stated Augmentin 3 days ago after a tooth extraction, but her condition became worse and had 2 episodes of diarrhea today Past Medical History Cardiovascular: HTN, Hyperlipidemia Pulmonary: No pertinent hx GI: No pertinent hx Heme/Onc: No pertinent hx Hepatobiliary: No pertinent hx Psych: No pertinent hx, Depression Rheumatologic: No pertinent hx Infectious disease: No pertinent hx Renal/: No pertinent hx Endocrine: Osteoporosis Past Surgical History Past Surgical History: Other Family History Family History: No Significant Social History Smoke: No ALCOHOL: none Drugs: None Current Problem List Problem List Problems Medical Problems: (1) Gastroenteritis Status: Acute (2) Generalized weakness Status: Acute (3) Leukocytosis Status: Acute Current Medications Current Medications Current Medications Sodium Chloride 1,000 ml @ 1,000 mls/hr Q1H IV Last administered on 11/02/18at 15:04; Start 11/02/18 at 14:39; Stop 11/02/18 at 15:38; Status DC Sodium Chloride 1,000 ml @ 100 mls/hr Q10H IV Last administered on 11/02/18at 19:59; Start 11/02/18 at 17:10; Stop 11/03/18 at 17:09 Ondansetron HCl (Zofran Odt) 4 mg PRN Q8HRS PRN PO NAUSEA/VOMITING; Start 11/02/18 at 18:00 Amlodipine Besylate (Norvasc) 5 mg DAILY PO ; Start 11/03/18 at 09:00 Lactobacillus Rhamnosus (Culturelle) 1 cap BID PO ; Start 11/02/18 at 21:00 Loperamide HCl (Imodium) 2 mg PRN TID PRN PO DIARRHEA; Start 11/02/18 at 18:00 Meloxicam (Mobic) 7.5 mg DAILY PO ; Start 11/03/18 at 09:00 Memantine (Namenda) 10 mg BID PO ; Start 11/02/18 at 21:00 Non-Formulary Medication (Albuterol Sulfate (Proair Respiclick)) 2 puff PRN Q6HRS PRN IH SHORTNESS OF BREATH; Start 11/02/18 at 18:00; Stop 11/02/18 at 18:04; Status DC Calcium/Vitamin D (Oscal D 500mg/ 200uts) 1 tab BIDWMEALS PO ; Start 11/03/18 at 08:00 Citalopram Hydrobromide (CeleXA) 40 mg DAILY PO ; Start 11/03/18 at 09:00 Metronidazole 100 ml @ 100 mls/hr 1X ONCE IV Last administered on 11/02/18at 19:59; Start 11/02/18 at 18:00; Stop 11/02/18 at 18:59; Status DC Metronidazole (Flagyl) 500 mg Q8HRS PO ; Start 11/02/18 at 22:00 Albuterol Sulfate (Ventolin Neb Soln) 2.5 mg PRN Q6HRS PRN NEB SHORTNESS OF BREATH; Start 11/02/18 at 18:15 Pharmacy Consult (C.diff Med Screen By Rx) 1 each 1X ONCE [facility] ; Start 11/02/18 at 19:45; Stop 11/02/18 at 19:46; Status UNV Active Scripts Active Prednisone 50 Mg Tablet 1 Tab PO DAILY Culturelle (Lactobacillus Rhamnosus Gg) 1 Each Cap.sprink 1 Cap PO BID 30 Days Amlodipine Besylate 5 Mg Tablet 5 Mg PO DAILY 30 Days Doxycycline Hyclate 100 Mg Tablet 100 Mg PO BID 5 Days Imodium A-D (Loperamide HCl) 2 Mg Capsule 2 Mg PO PRN TID PRN Reported Calcium + Vitamin D Tablet (Calcium Carbonate/Vitamin D3) 1 Each Tablet 1 Each PO BID Prolia (Denosumab) 60 Mg/1 Ml Disp.syrin 60 Mg SQ [id number] Memantine HCl 10 Mg Tablet 10 Mg PO BID Proair Respiclick (Albuterol Sulfate) 90 Mcg Aer.pow.ba 2 Puff IH PRN Q6HRS PRN Meloxicam 7.5 Mg Tablet 7.5 Mg PO DAILY Celexa (Citalopram Hydrobromide) 40 Mg Tablet 1 Tab PO DAILY Aricept (Donepezil Hcl) 10 Mg Tablet 1 Tab PO DAILY Allergies Allergies: Coded Allergies: No Known Drug Allergies (Unverified , 06/06/16) ROS General: YES: Fatigue, Malaise, Appetite; No: Chills, Night Sweats, Other PSYCHOLOGICAL ROS: No: Anxiety, Behavioral Disorder, Concentration difficultie, Decreased libido, Depression, Disorientation, Hallucinations, Hostility, Irritablity, Memory difficulties, Mood Swings, Obsessive thoughts, Physical abuse, Sexual abuse, Sleep disturbances, Suicidal ideation, Other HEENT: No: Heacaches, Visual Changes, Hearing change, Nasal congestion, Nasal discharge, Oral lesions, Sinus pain, Sore Throat, Epistaxis, Sneezing, Snoring, Tinnitus, Vertigo, Vocal changes, Other Respiratory: No: Cough, Hemoptysis, Orthopnea, Pleuritic Pain, Shortness of breath, SOB with excertion, Sputum Changes, Stridor, Tachypnea, Wheezing, Other Cardiovascular: No Chest Pain, No Palpitations, No Orthopnea, No Paroxysmal Noc. Dyspnea, No Edema, No Lt Headedness, No Other Gastrointestinal: Yes Nausea, Yes Vomiting, Yes Abdominal Pain, Yes Diarrhea Genitourinary: No Dysuria, No Frequency, No Incontinence, No Hematuria, No Retention, No Discharge, No Urgency, No Pain, No Flank Pain, No Other, No , No , No , No , No , No , No Musculoskeletal: No Gait Disturbance, No Joint Pain, No Joint Stiffness, No Joint Swelling, No Muscle Pain, No Muscular Weakness, No Pain In:, No Swelling In:, No Other Neurological: Yes Memory Loss; No Behavorial Changes, No Bowel/Bladder ControlChng, No Confusion, No Dizziness, No Gait Disturbance, No Headaches, No Impaired Coord/balance, No Numbness/Tingling, No Seizures, No Speech Problems, No Tremors, No Visual Changes, No Weakness, No Other Skin: No Dry Skin, No Eczema, No Hair Changes, No Lumps, No Mole Changes, No Mottling, No Nail Changes, No Pruritus, No Rash, No Skin Lesion Changes, No Other, No Acne Physical Exam General: Alert, Cooperative, No acute distress, Other (not oriented) HEENT: PERRYEVGENIY EOMI Lungs: Clear to auscultation, Normal air movement Heart: no gallops, no murmurs Abdomen: Normal bowel sounds, Soft, No tenderness, No hepatosplenomegaly Extremities: No clubbing, No edema, Normal pulses Skin: No rashes, No breakdown Neuro: Normal speech, Strength at 5/5 X4 ext, Normal tone, Cranial nerves 3-12 NL Psych/Mental Status: Mood NL Vitals Vitals Vital Signs Date Time Temp Pulse Resp B/P (MAP) Pulse Ox O2 Delivery O2 Flow Rate FiO2 11/02/18 17:20 98.1 65 16 154/70 (98) 92 Room Air 98.1 Labs Labs Laboratory Tests Test 11/02/18 14:28 11/02/18 15:15 White Blood Count 15.1 x10^3/uL (4.0-11.0) Red Blood Count 4.58 x10^6/uL (3.50-5.40) Hemoglobin 13.3 g/dL (12.0-15.5) Hematocrit 39.9 % (36.0-47.0) Mean Corpuscular Volume 87 fL (79-100) Mean Corpuscular Hemoglobin 29 pg (25-35) Mean Corpuscular Hemoglobin Concent 33 g/dL (31-37) Red Cell Distribution Width 14.5 % (11.5-14.5) Platelet Count 404 x10^3/uL (140-400) Neutrophils (%) (Auto) 81 % (31-73) Lymphocytes (%) (Auto) 8 % (24-48) Monocytes (%) (Auto) 8 % (0-9) Eosinophils (%) (Auto) 2 % (0-3) Basophils (%) (Auto) 1 % (0-3) Neutrophils # (Auto) 12.2 x10^3/uL (1.8-7.7) Lymphocytes # (Auto) 1.3 x10^3/uL (1.0-4.8) Monocytes # (Auto) 1.2 x10^3/uL (0.0-1.1) Eosinophils # (Auto) 0.3 x10^3/uL (0.0-0.7) Basophils # (Auto) 0.1 x10^3/uL (0.0-0.2) Prothrombin Time 14.6 SEC (11.7-14.0) Prothromb Time International Ratio 1.2 (0.8-1.1) Urine Collection Type U cath Urine Color Yellow Urine Clarity Clear Urine pH 5.5 Urine Specific [place] 1.015 Urine Protein Negative mg/dL (NEG-TRACE) Urine Glucose (UA) Negative mg/dL (NEG) Urine Ketones (Stick) Negative mg/dL (NEG) Urine Blood Trace (NEG) Urine Nitrite Negative (NEG) Urine Bilirubin Negative (NEG) Urine Urobilinogen Dipstick 0.2 mg/dL (0.2 mg/dL) Urine Leukocyte Esterase Negative (NEG) Urine RBC 0 /HPF (0-2) Urine WBC 0 /HPF (0-4) Urine Squamous Epithelial Cells Occ /LPF Urine Bacteria 0 /HPF (0-FEW) Urine Hyaline Casts Occasional /HPF Urine Mucus Mod /LPF Sodium Level 137 mmol/L (136-145) Potassium Level 3.5 mmol/L (3.5-5.1) Chloride Level 102 mmol/L (98-107) Carbon Dioxide Level 27 mmol/L (21-32) Anion Gap 8 (6-14) Blood Urea Nitrogen 16 mg/dL (7-20) Creatinine 1.0 mg/dL (0.6-1.0) Estimated GFR (Cockcroft-Gault) 53.0 BUN/Creatinine Ratio 16 (6-20) Glucose Level 103 mg/dL (70-99) Calcium Level 8.8 mg/dL (8.5-10.1) Total Bilirubin 0.4 mg/dL (0.2-1.0) Aspartate Amino Transf (AST/SGOT) 18 U/L (15-37) Alanine Aminotransferase (ALT/SGPT) 13 U/L (14-59) Alkaline Phosphatase 37 U/L (46-116) Creatine Kinase 51 U/L (26-192) Total Protein 6.5 g/dL (6.4-8.2) Albumin 3.1 g/dL (3.4-5.0) Albumin/Globulin Ratio 0.9 (1.0-1.7) Lipase 293 U/L (73-393) Lactic Acid Level 0.6 mmol/L (0.4-2.0) Laboratory Tests Test 11/02/18 14:28 11/02/18 15:15 White Blood Count 15.1 x10^3/uL (4.0-11.0) Red Blood Count 4.58 x10^6/uL (3.50-5.40) Hemoglobin 13.3 g/dL (12.0-15.5) Hematocrit 39.9 % (36.0-47.0) Mean Corpuscular Volume 87 fL (79-100) Mean Corpuscular Hemoglobin 29 pg (25-35) Mean Corpuscular Hemoglobin Concent 33 g/dL (31-37) Red Cell Distribution Width 14.5 % (11.5-14.5) Platelet Count 404 x10^3/uL (140-400) Neutrophils (%) (Auto) 81 % (31-73) Lymphocytes (%) (Auto) 8 % (24-48) Monocytes (%) (Auto) 8 % (0-9) Eosinophils (%) (Auto) 2 % (0-3) Basophils (%) (Auto) 1 % (0-3) Neutrophils # (Auto) 12.2 x10^3/uL (1.8-7.7) Lymphocytes # (Auto) 1.3 x10^3/uL (1.0-4.8) Monocytes # (Auto) 1.2 x10^3/uL (0.0-1.1) Eosinophils # (Auto) 0.3 x10^3/uL (0.0-0.7) Basophils # (Auto) 0.1 x10^3/uL (0.0-0.2) Prothrombin Time 14.6 SEC (11.7-14.0) Prothromb Time International Ratio 1.2 (0.8-1.1) Urine Collection Type U cath Urine Color Yellow Urine Clarity Clear Urine pH 5.5 Urine Specific [place] 1.015 Urine Protein Negative mg/dL (NEG-TRACE) Urine Glucose (UA) Negative mg/dL (NEG) Urine Ketones (Stick) Negative mg/dL (NEG) Urine Blood Trace (NEG) Urine Nitrite Negative (NEG) Urine Bilirubin Negative (NEG) Urine Urobilinogen Dipstick 0.2 mg/dL (0.2 mg/dL) Urine Leukocyte Esterase Negative (NEG) Urine RBC 0 /HPF (0-2) Urine WBC 0 /HPF (0-4) Urine Squamous Epithelial Cells Occ /LPF Urine Bacteria 0 /HPF (0-FEW) Urine Hyaline Casts Occasional /HPF Urine Mucus Mod /LPF Sodium Level 137 mmol/L (136-145) Potassium Level 3.5 mmol/L (3.5-5.1) Chloride Level 102 mmol/L (98-107) Carbon Dioxide Level 27 mmol/L (21-32) Anion Gap 8 (6-14) Blood Urea Nitrogen 16 mg/dL (7-20) Creatinine 1.0 mg/dL (0.6-1.0) Estimated GFR (Cockcroft-Gault) 53.0 BUN/Creatinine Ratio 16 (6-20) Glucose Level 103 mg/dL (70-99) Calcium Level 8.8 mg/dL (8.5-10.1) Total Bilirubin 0.4 mg/dL (0.2-1.0) Aspartate Amino Transf (AST/SGOT) 18 U/L (15-37) Alanine Aminotransferase (ALT/SGPT) 13 U/L (14-59) Alkaline Phosphatase 37 U/L (46-116) Creatine Kinase 51 U/L (26-192) Total Protein 6.5 g/dL (6.4-8.2) Albumin 3.1 g/dL (3.4-5.0) Albumin/Globulin Ratio 0.9 (1.0-1.7) Lipase 293 U/L (73-393) Lactic Acid Level 0.6 mmol/L (0.4-2.0) VTE Prophylaxis Ordered VTE Prophylaxis Devices: Yes VTE Pharmacological Prophylaxi: Yes Assessment/Plan Assessment/Plan sepsis diarrhea with nausea and vomiting recent abx for tooth extraction isolate for c.diff dementia, encephalopathy is chronic weakness and debility PEDRO CARRION MD Nov 02, 2018 20:08
[2018-11-02] MEDS: MEMANTINE 10 MG TABLET. PO SCH (20:33)
[2018-11-02] MEDS: LACTOBACILLUS RHAMNOSUS GG 1 CAPSULE. PO SCH (20:33)
[2018-11-02] MEDS ORDERED: LACTOBACILLUS RHAMNOSUS GG 1 CAPSULE. PO SCH (21:00)
[2018-11-02 23:00] VITALS: BP 121/75
[2018-11-03] MEDS: metroNIDAZOLE 500 MG TABLET PO SCH ×4 (00:30→21:38)
[2018-11-03 03:00] VITALS: BP 135/70
[2018-11-03] MEDS: IV NORMAL SALINE 1000ML BAG 1,000 ML IV SCH ×2 (06:07→16:19)
[2018-11-03 07:00] VITALS: BP 127/75
[2018-11-03 07:33] LABS: FECAL OB PT NEGATIVE (NEG)
[2018-11-03] MEDS: ONDANSETRON ODT 4 MG TAB.RAPDIS. PO PRN (08:36)
[2018-11-03] MEDS: CITALOPRAM 20 MG TABLET. PO SCH (09:49)
[2018-11-03] MEDS: MEMANTINE 10 MG TABLET. PO SCH ×2 (09:50→21:38)
[2018-11-03] MEDS: MELOXICAM 7.5 MG TABLET PO SCH (09:50)
[2018-11-03] MEDS: LACTOBACILLUS RHAMNOSUS GG 1 CAPSULE. PO SCH ×2 (09:50→21:38)
[2018-11-03] MEDS: CALCIUM CARB/VIT D3 500/200 TABLET. PO SCH ×2 (09:50→17:19)
[2018-11-03] MEDS: amLODIPine BESYLATE 5 MG TABLET PO SCH (09:52)
[2018-11-03 11:00] VITALS: BP 139/76
--- NOTE | 2018-11-03 14:27 | PDOC ---
PROGRESS NOTES Chief Complaint Chief Complaint sepsis diarrhea - isolate for c.diff nausea and vomiting recent abx for tooth extraction Epigastric abdominal pain dementia, encephalopathy is chronic weakness and debility History of Present Illness History of Present Illness Ms. Kc is a 83 year old female resident of assisted living, demented and her sister assists with this history. Patient's sister stated she has had episodes of nausea and vomiting and unable to eat for the last 2 weeks and was admitted in this hospital on October 23 for less than 24 hours and been treated for jaw infection with antibiotic while she was still not able to eat and drink. This morning still c/o diarrhea, nausea and epigastric pain. No SOB or CP. Unable to obtain ROS due to poor memory and confusion from dementia Vitals Vitals Vital Signs Date Time Temp Pulse Resp B/P (MAP) Pulse Ox O2 Delivery O2 Flow Rate FiO2 11/03/18 11:00 98.0 64 17 139/76 (97) 96 Room Air 98.0 Physical Exam General: Alert, Cooperative, No acute distress, Other (not oriented) Lungs: Clear Abdomen: Normal bowel sounds, Soft, No tenderness, No hepatosplenomegaly Extremities: No clubbing, No edema, Normal pulses Skin: No rashes, No breakdown Labs LABS Laboratory Tests Test 11/02/18 14:28 11/02/18 14:39 11/02/18 15:15 White Blood Count 15.1 x10^3/uL (4.0-11.0) Red Blood Count 4.58 x10^6/uL (3.50-5.40) Hemoglobin 13.3 g/dL (12.0-15.5) Hematocrit 39.9 % (36.0-47.0) Mean Corpuscular Volume 87 fL (79-100) Mean Corpuscular Hemoglobin 29 pg (25-35) Mean Corpuscular Hemoglobin Concent 33 g/dL (31-37) Red Cell Distribution Width 14.5 % (11.5-14.5) Platelet Count 404 x10^3/uL (140-400) Neutrophils (%) (Auto) 81 % (31-73) Lymphocytes (%) (Auto) 8 % (24-48) Monocytes (%) (Auto) 8 % (0-9) Eosinophils (%) (Auto) 2 % (0-3) Basophils (%) (Auto) 1 % (0-3) Neutrophils # (Auto) 12.2 x10^3/uL (1.8-7.7) Lymphocytes # (Auto) 1.3 x10^3/uL (1.0-4.8) Monocytes # (Auto) 1.2 x10^3/uL (0.0-1.1) Eosinophils # (Auto) 0.3 x10^3/uL (0.0-0.7) Basophils # (Auto) 0.1 x10^3/uL (0.0-0.2) Prothrombin Time 14.6 SEC (11.7-14.0) Prothromb Time International Ratio 1.2 (0.8-1.1) Urine Collection Type U cath Urine Color Yellow Urine Clarity Clear Urine pH 5.5 Urine Specific [place] 1.015 Urine Protein Negative mg/dL (NEG-TRACE) Urine Glucose (UA) Negative mg/dL (NEG) Urine Ketones (Stick) Negative mg/dL (NEG) Urine Blood Trace (NEG) Urine Nitrite Negative (NEG) Urine Bilirubin Negative (NEG) Urine Urobilinogen Dipstick 0.2 mg/dL (0.2 mg/dL) Urine Leukocyte Esterase Negative (NEG) Urine RBC 0 /HPF (0-2) Urine WBC 0 /HPF (0-4) Urine Squamous Epithelial Cells Occ /LPF Urine Bacteria 0 /HPF (0-FEW) Urine Hyaline Casts Occasional /HPF Urine Mucus Mod /LPF Sodium Level 137 mmol/L (136-145) Potassium Level 3.5 mmol/L (3.5-5.1) Chloride Level 102 mmol/L (98-107) Carbon Dioxide Level 27 mmol/L (21-32) Anion Gap 8 (6-14) Blood Urea Nitrogen 16 mg/dL (7-20) Creatinine 1.0 mg/dL (0.6-1.0) Estimated GFR (Cockcroft-Gault) 53.0 BUN/Creatinine Ratio 16 (6-20) Glucose Level 103 mg/dL (70-99) Calcium Level 8.8 mg/dL (8.5-10.1) Total Bilirubin 0.4 mg/dL (0.2-1.0) Aspartate Amino Transf (AST/SGOT) 18 U/L (15-37) Alanine Aminotransferase (ALT/SGPT) 13 U/L (14-59) Alkaline Phosphatase 37 U/L (46-116) Creatine Kinase 51 U/L (26-192) Total Protein 6.5 g/dL (6.4-8.2) Albumin 3.1 g/dL (3.4-5.0) Albumin/Globulin Ratio 0.9 (1.0-1.7) Lipase 293 U/L (73-393) Stool Occult Blood Negative (NEG) Lactic Acid Level 0.6 mmol/L (0.4-2.0) Assessment and Plan Assessmemt and Plan Problems Medical Problems: (1) Gastroenteritis Status: Acute (2) Generalized weakness Status: Acute (3) Leukocytosis Status: Acute Comment Review of Relevant I have reviewed the following items donovan (where applicable) has been applied. Labs Laboratory Tests Test 11/02/18 14:28 11/02/18 14:39 11/02/18 15:15 White Blood Count 15.1 x10^3/uL (4.0-11.0) Red Blood Count 4.58 x10^6/uL (3.50-5.40) Hemoglobin 13.3 g/dL (12.0-15.5) Hematocrit 39.9 % (36.0-47.0) Mean Corpuscular Volume 87 fL (79-100) Mean Corpuscular Hemoglobin 29 pg (25-35) Mean Corpuscular Hemoglobin Concent 33 g/dL (31-37) Red Cell Distribution Width 14.5 % (11.5-14.5) Platelet Count 404 x10^3/uL (140-400) Neutrophils (%) (Auto) 81 % (31-73) Lymphocytes (%) (Auto) 8 % (24-48) Monocytes (%) (Auto) 8 % (0-9) Eosinophils (%) (Auto) 2 % (0-3) Basophils (%) (Auto) 1 % (0-3) Neutrophils # (Auto) 12.2 x10^3/uL (1.8-7.7) Lymphocytes # (Auto) 1.3 x10^3/uL (1.0-4.8) Monocytes # (Auto) 1.2 x10^3/uL (0.0-1.1) Eosinophils # (Auto) 0.3 x10^3/uL (0.0-0.7) Basophils # (Auto) 0.1 x10^3/uL (0.0-0.2) Prothrombin Time 14.6 SEC (11.7-14.0) Prothromb Time International Ratio 1.2 (0.8-1.1) Urine Collection Type U cath Urine Color Yellow Urine Clarity Clear Urine pH 5.5 Urine Specific [place] 1.015 Urine Protein Negative mg/dL (NEG-TRACE) Urine Glucose (UA) Negative mg/dL (NEG) Urine Ketones (Stick) Negative mg/dL (NEG) Urine Blood Trace (NEG) Urine Nitrite Negative (NEG) Urine Bilirubin Negative (NEG) Urine Urobilinogen Dipstick 0.2 mg/dL (0.2 mg/dL) Urine Leukocyte Esterase Negative (NEG) Urine RBC 0 /HPF (0-2) Urine WBC 0 /HPF (0-4) Urine Squamous Epithelial Cells Occ /LPF Urine Bacteria 0 /HPF (0-FEW) Urine Hyaline Casts Occasional /HPF Urine Mucus Mod /LPF Sodium Level 137 mmol/L (136-145) Potassium Level 3.5 mmol/L (3.5-5.1) Chloride Level 102 mmol/L (98-107) Carbon Dioxide Level 27 mmol/L (21-32) Anion Gap 8 (6-14) Blood Urea Nitrogen 16 mg/dL (7-20) Creatinine 1.0 mg/dL (0.6-1.0) Estimated GFR (Cockcroft-Gault) 53.0 BUN/Creatinine Ratio 16 (6-20) Glucose Level 103 mg/dL (70-99) Calcium Level 8.8 mg/dL (8.5-10.1) Total Bilirubin 0.4 mg/dL (0.2-1.0) Aspartate Amino Transf (AST/SGOT) 18 U/L (15-37) Alanine Aminotransferase (ALT/SGPT) 13 U/L (14-59) Alkaline Phosphatase 37 U/L (46-116) Creatine Kinase 51 U/L (26-192) Total Protein 6.5 g/dL (6.4-8.2) Albumin 3.1 g/dL (3.4-5.0) Albumin/Globulin Ratio 0.9 (1.0-1.7) Lipase 293 U/L (73-393) Stool Occult Blood Negative (NEG) Lactic Acid Level 0.6 mmol/L (0.4-2.0) Laboratory Tests Test 9/6/19 14:28 11/02/18 14:39 11/02/18 15:15 White Blood Count 15.1 x10^3/uL (4.0-11.0) Red Blood Count 4.58 x10^6/uL (3.50-5.40) Hemoglobin 13.3 g/dL (12.0-15.5) Hematocrit 39.9 % (36.0-47.0) Mean Corpuscular Volume 87 fL (79-100) Mean Corpuscular Hemoglobin 29 pg (25-35) Mean Corpuscular Hemoglobin Concent 33 g/dL (31-37) Red Cell Distribution Width 14.5 % (11.5-14.5) Platelet Count 404 x10^3/uL (140-400) Neutrophils (%) (Auto) 81 % (31-73) Lymphocytes (%) (Auto) 8 % (24-48) Monocytes (%) (Auto) 8 % (0-9) Eosinophils (%) (Auto) 2 % (0-3) Basophils (%) (Auto) 1 % (0-3) Neutrophils # (Auto) 12.2 x10^3/uL (1.8-7.7) Lymphocytes # (Auto) 1.3 x10^3/uL (1.0-4.8) Monocytes # (Auto) 1.2 x10^3/uL (0.0-1.1) Eosinophils # (Auto) 0.3 x10^3/uL (0.0-0.7) Basophils # (Auto) 0.1 x10^3/uL (0.0-0.2) Prothrombin Time 14.6 SEC (11.7-14.0) Prothromb Time International Ratio 1.2 (0.8-1.1) Urine Collection Type U cath Urine Color Yellow Urine Clarity Clear Urine pH 5.5 Urine Specific [place] 1.015 Urine Protein Negative mg/dL (NEG-TRACE) Urine Glucose (UA) Negative mg/dL (NEG) Urine Ketones (Stick) Negative mg/dL (NEG) Urine Blood Trace (NEG) Urine Nitrite Negative (NEG) Urine Bilirubin Negative (NEG) Urine Urobilinogen Dipstick 0.2 mg/dL (0.2 mg/dL) Urine Leukocyte Esterase Negative (NEG) Urine RBC 0 /HPF (0-2) Urine WBC 0 /HPF (0-4) Urine Squamous Epithelial Cells Occ /LPF Urine Bacteria 0 /HPF (0-FEW) Urine Hyaline Casts Occasional /HPF Urine Mucus Mod /LPF Sodium Level 137 mmol/L (136-145) Potassium Level 3.5 mmol/L (3.5-5.1) Chloride Level 102 mmol/L (98-107) Carbon Dioxide Level 27 mmol/L (21-32) Anion Gap 8 (6-14) Blood Urea Nitrogen 16 mg/dL (7-20) Creatinine 1.0 mg/dL (0.6-1.0) Estimated GFR (Cockcroft-Gault) 53.0 BUN/Creatinine Ratio 16 (6-20) Glucose Level 103 mg/dL (70-99) Calcium Level 8.8 mg/dL (8.5-10.1) Total Bilirubin 0.4 mg/dL (0.2-1.0) Aspartate Amino Transf (AST/SGOT) 18 U/L (15-37) Alanine Aminotransferase (ALT/SGPT) 13 U/L (14-59) Alkaline Phosphatase 37 U/L (46-116) Creatine Kinase 51 U/L (26-192) Total Protein 6.5 g/dL (6.4-8.2) Albumin 3.1 g/dL (3.4-5.0) Albumin/Globulin Ratio 0.9 (1.0-1.7) Lipase 293 U/L (73-393) Stool Occult Blood Negative (NEG) Lactic Acid Level 0.6 mmol/L (0.4-2.0) Medications Current Medications Sodium Chloride 1,000 ml @ 1,000 mls/hr Q1H IV Last administered on 11/02/18at 15:04; Start 11/02/18 at 14:39; Stop 11/02/18 at 15:38; Status DC Sodium Chloride 1,000 ml @ 100 mls/hr Q10H IV Last administered on 11/03/18at 06:11; Start 11/02/18 at 17:10; Stop 11/03/18 at 17:09 Ondansetron HCl (Zofran Odt) 4 mg PRN Q8HRS PRN PO NAUSEA/VOMITING Last administered on 11/03/18at 08:36; Start 11/02/18 at 18:00 Amlodipine Besylate (Norvasc) 5 mg DAILY PO Last administered on 11/03/18 09:52; Start 11/03/18 at 09:00 Lactobacillus Rhamnosus (Culturelle) 1 cap BID PO Last administered on 11/03/18 09:52; Start 11/02/18 at 21:00 Loperamide HCl (Imodium) 2 mg PRN TID PRN PO DIARRHEA Last administered on 11/03/18 06:11; Start 11/02/18 at 18:00 Meloxicam (Mobic) 7.5 mg DAILY PO Last administered on 11/03/18 09:52; Start 11/03/18 at 09:00 Memantine (Namenda) 10 mg BID PO Last administered on 11/03/18 09:52; Start 11/02/18 at 21:00 Non-Formulary Medication (Albuterol Sulfate (Proair Respiclick)) 2 puff PRN Q6HRS PRN IH SHORTNESS OF BREATH; Start 11/02/18 at 18:00; Stop 11/02/18 at 18 :04; Status DC Calcium/Vitamin D (Oscal D 500mg/ 200uts) 1 tab BIDWMEALS PO Last administered on 11/03/18 09:52; Start 11/03/18 at 08:00 Citalopram Hydrobromide (CeleXA) 40 mg DAILY PO Last administered on 11/03/18 09:52; Start 11/03/18 at 09:00 Metronidazole 100 ml @ 100 mls/hr 1X ONCE IV Last administered on 11/02/18 19:59; Start 11/02/18 at 18:00; Stop 11/02/18 at 18:59; Status DC Metronidazole (Flagyl) 500 mg Q8HRS PO Last administered on 11/03/18 13:35; Start 11/02/18 at 22:00 Albuterol Sulfate (Ventolin Neb Soln) 2.5 mg PRN Q6HRS PRN NEB SHORTNESS OF BREATH; Start 11/02/18 at 18:15 Pharmacy Consult (C.diff Med Screen By Rx) 1 each 1X ONCE [facility] ; Start 11/02/18 at 19:45; Stop 11/02/18 at 19:46; Status UNV Lactobacillus Rhamnosus (Culturelle) 1 cap BID PO ; Start 11/02/18 at 21:00; Stop 11/02/18 at 20:09; Status DC Active Scripts Active Prednisone 50 Mg Tablet 1 Tab PO DAILY Culturelle (Lactobacillus Rhamnosus Gg) 1 Each Cap.sprink 1 Cap PO BID 30 Days Amlodipine Besylate 5 Mg Tablet 5 Mg PO DAILY 30 Days Doxycycline Hyclate 100 Mg Tablet 100 Mg PO BID 5 Days Imodium A-D (Loperamide HCl) 2 Mg Capsule 2 Mg PO PRN TID PRN Reported Calcium + Vitamin D Tablet (Calcium Carbonate/Vitamin D3) 1 Each Tablet 1 Each PO BID Prolia (Denosumab) 60 Mg/1 Ml Disp.syrin 60 Mg SQ [id number] Memantine HCl 10 Mg Tablet 10 Mg PO BID Proair Respiclick (Albuterol Sulfate) 90 Mcg Aer.pow.ba 2 Puff IH PRN Q6HRS PRN Meloxicam 7.5 Mg Tablet 7.5 Mg PO DAILY Celexa (Citalopram Hydrobromide) 40 Mg Tablet 1 Tab PO DAILY Aricept (Donepezil Hcl) 10 Mg Tablet 1 Tab PO DAILY Vitals/I & O Vital Sign - Last 24 Hours 11/02/18 11/02/18 11/02/18 11/02/18 14:30 15:00 15:30 16:00 Pulse 68 64 62 66 Resp 26 16 28 37 B/P (MAP) 154/80 (104) 147/76 (99) 155/70 (98) Pulse Ox 94 95 96 93 O2 Delivery Room Air Room Air Room Air Room Air 11/02/18 11/02/18 11/02/18 11/02/18 16:30 17:20 19:00 20:00 Temp 98.1 98.2 98.1 98.2 Pulse 68 65 67 Resp 33 16 18 B/P (MAP) 136/68 (90) 154/70 (98) 140/84 (102) Pulse Ox 93 92 91 O2 Delivery Room Air Room Air Room Air Room Air 11/02/18 11/03/18 11/03/18 11/03/18 23:00 03:00 07:00 08:00 Temp 98.1 97.8 98.0 98.1 97.8 98.0 Pulse 70 74 64 Resp 18 18 16 B/P (MAP) 121/75 (90) 135/70 (91) 127/75 (92) Pulse Ox 91 91 93 O2 Delivery Room Air Room Air Room Air Room Air 11/03/18 11/03/18 09:52 11:00 Temp 98.0 98.0 Pulse 64 64 Resp 17 B/P (MAP) 127/75 139/76 (97) Pulse Ox 96 O2 Delivery Room Air Intake and Output 11/02/18 11/02/18 11/03/18 15:00 23:00 07:00 Intake Total 1600 ml 450 ml Balance 1600 ml 450 ml ELISE GOODMAN MD Nov 03, 2018 14:27
[2018-11-03 15:00] VITALS: BP 148/74
[2018-11-03 19:00] VITALS: BP 134/81
[2018-11-03 23:02] VITALS: BP 135/81
[2018-11-04 03:11] VITALS: BP 151/82
[2018-11-04] MEDS: ONDANSETRON ODT 4 MG TAB.RAPDIS. PO PRN ×3 (03:24→17:27)
[2018-11-04] MEDS ORDERED: IBUPROFEN 200 MG TABLET. PO PRN (03:30)
[2018-11-04 05:31] LABS: BASO % 1 % (0-3); EOS # 0.4 x10^3/uL (0.0-0.7); EOS % 5 % (0-3); HEMATOCRIT 36.9 % (36.0-47.0); HEMOGLOBIN 12.5 g/dL (12.0-15.5); LYMPH # 1.2 x10^3/uL (1.0-4.8); LYMPH % 15 % (24-48); MEAN CORPUSCULAR HEMOGLOBIN 30 pg (25-35); MEAN CORPUSCULAR HGB CONC 34 g/dL (31-37); MEAN CORPUSCULAR VOLUME 87 fL (79-100); MONO # 0.8 x10^3/uL (0.0-1.1); MONO % 10 % (0-9); NEUT # 5.5 x10^3/uL (1.8-7.7); NEUT % 70 % (31-73); PLATELET COUNT 355 x10^3/uL (140-400); RED BLOOD COUNT 4.25 x10^6/uL (3.50-5.40); WHITE BLOOD COUNT 7.9 x10^3/uL (4.0-11.0)
[2018-11-04] MEDS: metroNIDAZOLE 500 MG TABLET PO SCH ×2 (05:58→13:37)
[2018-11-04 06:08] LABS: CALCIUM 7.5 mg/dL (8.5-10.1); CREATININE 0.7 mg/dL (0.6-1.0); GFR 79.9
[2018-11-04 06:11] LABS: POTASSIUM 2.8 mmol/L (3.5-5.1)
[2018-11-04] MEDS ORDERED: POTASSIUM CHLORIDE 20 MEQ TABLET.ER. PO ONE (06:45)
[2018-11-04 07:18] VITALS: BP 144/76
[2018-11-04] MEDS ORDERED: POTASSIUM CHLORIDE 20 MEQ TABLET.ER. PO SCH (09:30)
--- NOTE | 2018-11-04 09:31 | PDOC ---
PROGRESS NOTES Chief Complaint Chief Complaint sepsis diarrhea - isolate for c.diff nausea and vomiting recent abx for tooth extraction Epigastric abdominal pain dementia, encephalopathy is chronic weakness and debility History of Present Illness History of Present Illness Ms. Kc is a 83 year old female resident of assisted living, demented and her sister assists with this history. Patient's sister stated she has had episodes of nausea and vomiting and unable to eat for the last 2 weeks and was admitted in this hospital on October 23 for less than 24 hours and been treated for jaw infection with antibiotic while she was still not able to eat and drink. C. Diff negative and stool occult negative. Potassium 2.8. This morning still c/o diarrhea, nausea and epigastric pain. No SOB or CP. Unable to obtain ROS due to poor memory and confusion from dementia Vitals Vitals Vital Signs Date Time Temp Pulse Resp B/P (MAP) Pulse Ox O2 Delivery O2 Flow Rate FiO2 11/04/18 07:18 98.0 70 20 144/76 (98) 94 Room Air 98.0 Physical Exam General: Alert, Cooperative, No acute distress, Other (not oriented) Lungs: Clear Abdomen: Normal bowel sounds, Soft, No tenderness, No hepatosplenomegaly Extremities: No clubbing, No edema, Normal pulses Skin: No rashes, No breakdown Labs LABS Laboratory Tests Test 11/04/18 04:10 White Blood Count 7.9 x10^3/uL (4.0-11.0) Red Blood Count 4.25 x10^6/uL (3.50-5.40) Hemoglobin 12.5 g/dL (12.0-15.5) Hematocrit 36.9 % (36.0-47.0) Mean Corpuscular Volume 87 fL (79-100) Mean Corpuscular Hemoglobin 30 pg (25-35) Mean Corpuscular Hemoglobin Concent 34 g/dL (31-37) Red Cell Distribution Width 15.0 % (11.5-14.5) Platelet Count 355 x10^3/uL (140-400) Neutrophils (%) (Auto) 70 % (31-73) Lymphocytes (%) (Auto) 15 % (24-48) Monocytes (%) (Auto) 10 % (0-9) Eosinophils (%) (Auto) 5 % (0-3) Basophils (%) (Auto) 1 % (0-3) Neutrophils # (Auto) 5.5 x10^3/uL (1.8-7.7) Lymphocytes # (Auto) 1.2 x10^3/uL (1.0-4.8) Monocytes # (Auto) 0.8 x10^3/uL (0.0-1.1) Eosinophils # (Auto) 0.4 x10^3/uL (0.0-0.7) Basophils # (Auto) 0.0 x10^3/uL (0.0-0.2) Sodium Level 144 mmol/L (136-145) Potassium Level 2.8 mmol/L (3.5-5.1) Chloride Level 108 mmol/L (98-107) Carbon Dioxide Level 25 mmol/L (21-32) Anion Gap 11 (6-14) Blood Urea Nitrogen 4 mg/dL (7-20) Creatinine 0.7 mg/dL (0.6-1.0) Estimated GFR (Cockcroft-Gault) 79.9 Glucose Level 94 mg/dL (70-99) Calcium Level 7.5 mg/dL (8.5-10.1) Assessment and Plan Assessmemt and Plan Problems Medical Problems: (1) Gastroenteritis Status: Acute (2) Generalized weakness Status: Acute (3) Leukocytosis Status: Acute Comment Review of Relevant I have reviewed the following items donovan (where applicable) has been applied. Labs Laboratory Tests Test 11/02/18 14:28 11/02/18 14:39 11/02/18 15:15 11/04/18 04:10 White Blood Count 15.1 x10^3/uL (4.0-11.0) 7.9 x10^3/uL (4.0-11.0) Red Blood Count 4.58 x10^6/uL (3.50-5.40) 4.25 x10^6/uL (3.50-5.40) Hemoglobin 13.3 g/dL (12.0-15.5) 12.5 g/dL (12.0-15.5) Hematocrit 39.9 % (36.0-47.0) 36.9 % (36.0-47.0) Mean Corpuscular Volume 87 fL (79-100) 87 fL (79-100) Mean Corpuscular Hemoglobin 29 pg (25-35) 30 pg (25-35) Mean Corpuscular Hemoglobin Concent 33 g/dL (31-37) 34 g/dL (31-37) Red Cell Distribution Width 14.5 % (11.5-14.5) 15.0 % (11.5-14.5) Platelet Count 404 x10^3/uL (140-400) 355 x10^3/uL (140-400) Neutrophils (%) (Auto) 81 % (31-73) 70 % (31-73) Lymphocytes (%) (Auto) 8 % (24-48) 15 % (24-48) Monocytes (%) (Auto) 8 % (0-9) 10 % (0-9) Eosinophils (%) (Auto) 2 % (0-3) 5 % (0-3) Basophils (%) (Auto) 1 % (0-3) 1 % (0-3) Neutrophils # (Auto) 12.2 x10^3/uL (1.8-7.7) 5.5 x10^3/uL (1.8-7.7) Lymphocytes # (Auto) 1.3 x10^3/uL (1.0-4.8) 1.2 x10^3/uL (1.0-4.8) Monocytes # (Auto) 1.2 x10^3/uL (0.0-1.1) 0.8 x10^3/uL (0.0-1.1) Eosinophils # (Auto) 0.3 x10^3/uL (0.0-0.7) 0.4 x10^3/uL (0.0-0.7) Basophils # (Auto) 0.1 x10^3/uL (0.0-0.2) 0.0 x10^3/uL (0.0-0.2) Prothrombin Time 14.6 SEC (11.7-14.0) Prothromb Time International Ratio 1.2 (0.8-1.1) Urine Collection Type U cath Urine Color Yellow Urine Clarity Clear Urine pH 5.5 Urine Specific [place] 1.015 Urine Protein Negative mg/dL (NEG-TRACE) Urine Glucose (UA) Negative mg/dL (NEG) Urine Ketones (Stick) Negative mg/dL (NEG) Urine Blood Trace (NEG) Urine Nitrite Negative (NEG) Urine Bilirubin Negative (NEG) Urine Urobilinogen Dipstick 0.2 mg/dL (0.2 mg/dL) Urine Leukocyte Esterase Negative (NEG) Urine RBC 0 /HPF (0-2) Urine WBC 0 /HPF (0-4) Urine Squamous Epithelial Cells Occ /LPF Urine Bacteria 0 /HPF (0-FEW) Urine Hyaline Casts Occasional /HPF Urine Mucus Mod /LPF Sodium Level 137 mmol/L (136-145) 144 mmol/L (136-145) Potassium Level 3.5 mmol/L (3.5-5.1) 2.8 mmol/L (3.5-5.1) Chloride Level 102 mmol/L (98-107) 108 mmol/L (98-107) Carbon Dioxide Level 27 mmol/L (21-32) 25 mmol/L (21-32) Anion Gap 8 (6-14) 11 (6-14) Blood Urea Nitrogen 16 mg/dL (7-20) 4 mg/dL (7-20) Creatinine 1.0 mg/dL (0.6-1.0) 0.7 mg/dL (0.6-1.0) Estimated GFR (Cockcroft-Gault) 53.0 79.9 BUN/Creatinine Ratio 16 (6-20) Glucose Level 103 mg/dL (70-99) 94 mg/dL (70-99) Calcium Level 8.8 mg/dL (8.5-10.1) 7.5 mg/dL (8.5-10.1) Total Bilirubin 0.4 mg/dL (0.2-1.0) Aspartate Amino Transf (AST/SGOT) 18 U/L (15-37) Alanine Aminotransferase (ALT/SGPT) 13 U/L (14-59) Alkaline Phosphatase 37 U/L (46-116) Creatine Kinase 51 U/L (26-192) Total Protein 6.5 g/dL (6.4-8.2) Albumin 3.1 g/dL (3.4-5.0) Albumin/Globulin Ratio 0.9 (1.0-1.7) Lipase 293 U/L (73-393) Stool Occult Blood Negative (NEG) Clostridium difficile Toxin B Gene Negative (Negative) Lactic Acid Level 0.6 mmol/L (0.4-2.0) Laboratory Tests Test 11/04/18 04:10 White Blood Count 7.9 x10^3/uL (4.0-11.0) Red Blood Count 4.25 x10^6/uL (3.50-5.40) Hemoglobin 12.5 g/dL (12.0-15.5) Hematocrit 36.9 % (36.0-47.0) Mean Corpuscular Volume 87 fL (79-100) Mean Corpuscular Hemoglobin 30 pg (25-35) Mean Corpuscular Hemoglobin Concent 34 g/dL (31-37) Red Cell Distribution Width 15.0 % (11.5-14.5) Platelet Count 355 x10^3/uL (140-400) Neutrophils (%) (Auto) 70 % (31-73) Lymphocytes (%) (Auto) 15 % (24-48) Monocytes (%) (Auto) 10 % (0-9) Eosinophils (%) (Auto) 5 % (0-3) Basophils (%) (Auto) 1 % (0-3) Neutrophils # (Auto) 5.5 x10^3/uL (1.8-7.7) Lymphocytes # (Auto) 1.2 x10^3/uL (1.0-4.8) Monocytes # (Auto) 0.8 x10^3/uL (0.0-1.1) Eosinophils # (Auto) 0.4 x10^3/uL (0.0-0.7) Basophils # (Auto) 0.0 x10^3/uL (0.0-0.2) Sodium Level 144 mmol/L (136-145) Potassium Level 2.8 mmol/L (3.5-5.1) Chloride Level 108 mmol/L (98-107) Carbon Dioxide Level 25 mmol/L (21-32) Anion Gap 11 (6-14) Blood Urea Nitrogen 4 mg/dL (7-20) Creatinine 0.7 mg/dL (0.6-1.0) Estimated GFR (Cockcroft-Gault) 79.9 Glucose Level 94 mg/dL (70-99) Calcium Level 7.5 mg/dL (8.5-10.1) Microbiology 11/02/18 Blood Culture - Preliminary, Resulted NO GROWTH AFTER 1 DAY Medications Current Medications Sodium Chloride 1,000 ml @ 1,000 mls/hr Q1H IV Last administered on 11/02/18 15:04; Start 11/02/18 at 14:39; Stop 11/02/18 at 15:38; Status DC Sodium Chloride 1,000 ml @ 100 mls/hr Q10H IV Last administered on 11/03/18 16:19; Start 11/02/18 at 17:10; Stop 11/03/18 at 17:09; Status DC Ondansetron HCl (Zofran Odt) 4 mg PRN Q8HRS PRN PO NAUSEA/VOMITING Last administered on 11/04/18 09:07; Start 11/02/18 at 18:00 Amlodipine Besylate (Norvasc) 5 mg DAILY PO Last administered on 11/03/18 09:52; Start 11/03/18 at 09:00 Lactobacillus Rhamnosus (Culturelle) 1 cap BID PO Last administered on 11/03/18 21:38; Start 11/02/18 at 21:00 Loperamide HCl (Imodium) 2 mg PRN TID PRN PO DIARRHEA Last administered on 11/03/18 06:11; Start 11/02/18 at 18:00 Meloxicam (Mobic) 7.5 mg DAILY PO Last administered on 11/03/18 09:52; Start at 09:00 Memantine (Namenda) 10 mg BID PO Last administered on 11/03/18 21:38; Start 11/02/18 at 21:00 Non-Formulary Medication (Albuterol Sulfate (Proair Respiclick)) 2 puff PRN Q6HRS PRN IH SHORTNESS OF BREATH; Start 11/02/18 at 18:00; Stop 11/02/18 at 18:04; Status DC Calcium/Vitamin D (Oscal D 500mg/ 200uts) 1 tab BIDWMEALS PO Last administered on 11/03/18 17:19; Start 11/03/18 at 08:00 Citalopram Hydrobromide (CeleXA) 40 mg DAILY PO Last administered on 11/03/18 09:52; Start 11/03/18 at 09:00 Metronidazole 100 ml @ 100 mls/hr 1X ONCE IV Last administered on 11/02/18 19:59; Start 11/02/18 at 18:00; Stop 11/02/18 at 18:59; Status DC Metronidazole (Flagyl) 500 mg Q8HRS PO Last administered on 11/04/18at 05:59; Start 11/02/18 at 22:00 Albuterol Sulfate (Ventolin Neb Soln) 2.5 mg PRN Q6HRS PRN NEB SHORTNESS OF BREATH; Start 11/02/18 at 18:15 Pharmacy Consult (C.diff Med Screen By Rx) 1 each 1X ONCE [facility] ; Start 11/02/18 at 19:45; Stop 11/02/18 at 19:46; Status UNV Lactobacillus Rhamnosus (Culturelle) 1 cap BID PO ; Start 11/02/18 at 21:00; Stop 11/02/18 at 20:09; Status DC Ibuprofen (Motrin) 600 mg PRN Q8HRS PRN PO PAIN Last administered on 11/04/18at 03:52; Start 11/04/18 at 03:30 Potassium Chloride (Klor-Con) 40 meq 1X ONCE PO Last administered on 11/04/18at 06:52; Start 11/04/18 at 06:45; Stop 11/04/18 at 06:46; Status DC Potassium Chloride (Klor-Con) 20 meq 1X PO ; Start 11/04/18 at 09:30 Active Scripts Active Prednisone 50 Mg Tablet 1 Tab PO DAILY Culturelle (Lactobacillus Rhamnosus Gg) 1 Each Cap.sprink 1 Cap PO BID 30 Days Amlodipine Besylate 5 Mg Tablet 5 Mg PO DAILY 30 Days Doxycycline Hyclate 100 Mg Tablet 100 Mg PO BID 5 Days Imodium A-D (Loperamide HCl) 2 Mg Capsule 2 Mg PO PRN TID PRN Reported Calcium + Vitamin D Tablet (Calcium Carbonate/Vitamin D3) 1 Each Tablet 1 Each PO BID Prolia (Denosumab) 60 Mg/1 Ml Disp.syrin 60 Mg SQ [id number] Memantine HCl 10 Mg Tablet 10 Mg PO BID Proair Respiclick (Albuterol Sulfate) 90 Mcg Aer.pow.ba 2 Puff IH PRN Q6HRS PRN Meloxicam 7.5 Mg Tablet 7.5 Mg PO DAILY Celexa (Citalopram Hydrobromide) 40 Mg Tablet 1 Tab PO DAILY Aricept (Donepezil Hcl) 10 Mg Tablet 1 Tab PO DAILY Vitals/I & O Vital Sign - Last 24 Hours 11/03/18 11/03/18 11/03/18 11/03/18 09:52 11:00 15:00 19:00 Temp 98.0 98.1 98.3 98.0 98.1 98.3 Pulse 64 64 64 63 Resp 17 17 18 B/P (MAP) 127/75 139/76 (97) 148/74 (98) 134/81 (98) Pulse Ox 96 92 92 O2 Delivery Room Air Room Air Room Air 11/03/18 11/03/18 11/04/18 11/04/18 20:00 23:02 03:11 07:18 Temp 98.5 97.9 98.0 98.5 97.9 98.0 Pulse 67 61 70 Resp 20 18 20 B/P (MAP) 135/81 (99) 151/82 (105) 144/76 (98) Pulse Ox 91 93 94 O2 Delivery Room Air Room Air Room Air Room Air Intake and Output 11/03/18 11/03/18 11/04/18 14:59 22:59 06:59 Intake Total 180 ml Balance 180 ml ELISE GOODMAN MD Nov 04, 2018 09:31
[2018-11-04] MEDS: CITALOPRAM 20 MG TABLET. PO SCH (10:07)
[2018-11-04] MEDS: CALCIUM CARB/VIT D3 500/200 TABLET. PO SCH ×2 (10:07→17:00)
[2018-11-04] MEDS: amLODIPine BESYLATE 5 MG TABLET PO SCH (10:07)
[2018-11-04] MEDS: LACTOBACILLUS RHAMNOSUS GG 1 CAPSULE. PO SCH ×2 (10:07→21:01)
[2018-11-04] MEDS: MELOXICAM 7.5 MG TABLET PO SCH (10:08)
[2018-11-04] MEDS: MEMANTINE 10 MG TABLET. PO SCH ×2 (10:08→21:02)
[2018-11-04 10:41] VITALS: BP 151/87
[2018-11-04] MEDS ORDERED: MAGNESIUM SULFATE 4GM 100 ML IV ONE (11:30)
[2018-11-04] MEDS: POTASSIUM CHLORIDE 10MEQ 100 ML IV SCH ×2 (13:38→15:41)
[2018-11-04 14:13] VITALS: BP 146/82
[2018-11-04 19:00] VITALS: BP 146/75
[2018-11-04 23:00] VITALS: BP 144/84
[2018-11-05 03:00] VITALS: BP 125/81
[2018-11-05 07:00] VITALS: BP 131/70
[2018-11-05] MEDS: ONDANSETRON ODT 4 MG TAB.RAPDIS. PO PRN (07:04)
[2018-11-05 08:00] LABS: CALCIUM 7.5 mg/dL (8.5-10.1); CREATININE 0.7 mg/dL (0.6-1.0); GFR 79.9; POTASSIUM 3.8 mmol/L (3.5-5.1)
[2018-11-05] MEDS: CALCIUM CARB/VIT D3 500/200 TABLET. PO SCH ×2 (08:37→17:11)
[2018-11-05] MEDS: LACTOBACILLUS RHAMNOSUS GG 1 CAPSULE. PO SCH ×2 (08:38→21:18)
[2018-11-05] MEDS: MELOXICAM 7.5 MG TABLET PO SCH (08:38)
[2018-11-05] MEDS: MEMANTINE 10 MG TABLET. PO SCH ×2 (08:38→21:18)
[2018-11-05] MEDS: CITALOPRAM 20 MG TABLET. PO SCH (08:39)
[2018-11-05] MEDS: amLODIPine BESYLATE 5 MG TABLET PO SCH (08:39)
--- NOTE | 2018-11-05 09:56 | NUR ---
SW following pt for dc planning. Chart reviewed and Pt is a resident at the [facility], phone: , fax: [phone]. Pt was previously discharged with [facility], phone: [phone], fax: [phone]. SW will continue to follow.
[2018-11-05 11:00] VITALS: BP 127/78
[2018-11-05] MEDS ORDERED: cloNIDine HCL 0.1 MG TABLET PO PRN (11:30)
[2018-11-05] MEDS ORDERED: LOPERAMIDE 2 MG CAPSULE PO PRN (11:30)
--- NOTE | 2018-11-05 13:10 | PDOC ---
PROGRESS NOTES Chief Complaint Chief Complaint sepsis diarrhea - c diff neg nausea and vomiting after a meal recent abx for tooth extraction Epigastric abdominal pain dementia, encephalopathy is chronic weakness and debility History of Present Illness History of Present Illness family concerned bec emesis persists every after a meal So she is afraid to eat C diff neg - that has been coming down\ NON DM Emesis was NOT a chronic problem NON CAD, no PAD, non vasculopath- my thoughts re risk for mesenteric ischemia Abd films september - normal gas pattern PLAN: Check acute abd series GI consult back down diet? supprotive meds PT.OT, SNU screen if recommended may give imodium - c diff neg dc contact isol Vitals Vitals Vital Signs Date Time Temp Pulse Resp B/P (MAP) Pulse Ox O2 Delivery O2 Flow Rate FiO2 11/05/18 11:00 98.3 72 17 127/78 (94) 93 Room Air 98.3 Physical Exam General: Alert, Cooperative, No acute distress, Other (not oriented) Heart: Regular rate Lungs: Clear Abdomen: Normal bowel sounds, Soft, No tenderness, No hepatosplenomegaly Extremities: No clubbing, No edema, Normal pulses Skin: No rashes, No breakdown Labs LABS Laboratory Tests Test 11/05/18 05:45 Sodium Level 142 mmol/L (136-145) Potassium Level 3.8 mmol/L (3.5-5.1) Chloride Level 107 mmol/L (98-107) Carbon Dioxide Level 26 mmol/L (21-32) Anion Gap 9 (6-14) Blood Urea Nitrogen 5 mg/dL (7-20) Creatinine 0.7 mg/dL (0.6-1.0) Estimated GFR (Cockcroft-Gault) 79.9 Glucose Level 86 mg/dL (70-99) Calcium Level 7.5 mg/dL (8.5-10.1) Review of Systems Review of Systems poor po, weak, afraid to eat, nausea, emesis, no cp, no soa, no fevers Assessment and Plan Assessmemt and Plan Problems Medical Problems: (1) Dementia Status: Chronic (2) Diarrhea Status: Acute (3) Encephalopathy Status: Chronic (4) Gastroenteritis Status: Acute (5) Generalized weakness Status: Acute (6) Leukocytosis Status: Acute (7) Nausea and vomiting Status: Acute (8) Sepsis Status: Acute Comment Review of Relevant I have reviewed the following items donovan (where applicable) has been applied. Labs Laboratory Tests Test 11/04/18 04:10 11/04/18 12:55 11/05/18 05:45 White Blood Count 7.9 x10^3/uL (4.0-11.0) Red Blood Count 4.25 x10^6/uL (3.50-5.40) Hemoglobin 12.5 g/dL (12.0-15.5) Hematocrit 36.9 % (36.0-47.0) Mean Corpuscular Volume 87 fL (79-100) Mean Corpuscular Hemoglobin 30 pg (25-35) Mean Corpuscular Hemoglobin Concent 34 g/dL (31-37) Red Cell Distribution Width 15.0 % (11.5-14.5) Platelet Count 355 x10^3/uL (140-400) Neutrophils (%) (Auto) 70 % (31-73) Lymphocytes (%) (Auto) 15 % (24-48) Monocytes (%) (Auto) 10 % (0-9) Eosinophils (%) (Auto) 5 % (0-3) Basophils (%) (Auto) 1 % (0-3) Neutrophils # (Auto) 5.5 x10^3/uL (1.8-7.7) Lymphocytes # (Auto) 1.2 x10^3/uL (1.0-4.8) Monocytes # (Auto) 0.8 x10^3/uL (0.0-1.1) Eosinophils # (Auto) 0.4 x10^3/uL (0.0-0.7) Basophils # (Auto) 0.0 x10^3/uL (0.0-0.2) Sodium Level 144 mmol/L (136-145) 142 mmol/L (136-145) Potassium Level 2.8 mmol/L (3.5-5.1) 3.4 mmol/L (3.5-5.1) 3.8 mmol/L (3.5-5.1) Chloride Level 108 mmol/L (98-107) 107 mmol/L (98-107) Carbon Dioxide Level 25 mmol/L (21-32) 26 mmol/L (21-32) Anion Gap 11 (6-14) 9 (6-14) Blood Urea Nitrogen 4 mg/dL (7-20) 5 mg/dL (7-20) Creatinine 0.7 mg/dL (0.6-1.0) 0.7 mg/dL (0.6-1.0) Estimated GFR (Cockcroft-Gault) 79.9 79.9 Glucose Level 94 mg/dL (70-99) 86 mg/dL (70-99) Calcium Level 7.5 mg/dL (8.5-10.1) 7.5 mg/dL (8.5-10.1) Magnesium Level 1.5 mg/dL (1.8-2.4) Laboratory Tests Test 11/05/18 05:45 Sodium Level 142 mmol/L (136-145) Potassium Level 3.8 mmol/L (3.5-5.1) Chloride Level 107 mmol/L (98-107) Carbon Dioxide Level 26 mmol/L (21-32) Anion Gap 9 (6-14) Blood Urea Nitrogen 5 mg/dL (7-20) Creatinine 0.7 mg/dL (0.6-1.0) Estimated GFR (Cockcroft-Gault) 79.9 Glucose Level 86 mg/dL (70-99) Calcium Level 7.5 mg/dL (8.5-10.1) Microbiology 11/02/18 Blood Culture - Preliminary, Resulted NO GROWTH AFTER 2 DAYS Medications Current Medications Sodium Chloride 1,000 ml @ 1,000 mls/hr Q1H IV Last administered on 11/02/18at 15:04; Start 11/02/18 at 14:39; Stop 11/02/18 at 15:38; Status DC Sodium Chloride 1,000 ml @ 100 mls/hr Q10H IV Last administered on 11/03/18at 16:19; Start 11/02/18 at 17:10; Stop 11/03/18 at 17:09; Status DC Ondansetron HCl (Zofran Odt) 4 mg PRN Q8HRS PRN PO NAUSEA/VOMITING Last administered on 11/05/18at 07:04; Start 11/02/18 at 18:00; Stop 11/05/18 at 11:24; Status DC Amlodipine Besylate (Norvasc) 5 mg DAILY PO Last administered on 11/05/18at 08:39; Start 11/03/18 at 09:00 Lactobacillus Rhamnosus (Culturelle) 1 cap BID PO Last administered on 11/05/18 08:39; Start 11/02/18 at 21:00 Loperamide HCl (Imodium) 2 mg PRN TID PRN PO DIARRHEA Last administered on 11/03/18 06:11; Start 11/02/18 at 18:00; Stop 11/05/18 at 12:21; Status DC Meloxicam (Mobic) 7.5 mg DAILY PO Last administered on 11/05/18 08:39; Start 11/03/18 at 09:00 Memantine (Namenda) 10 mg BID PO Last administered on 11/05/18 08:39; Start 11/02/18 at 21:00 Non-Formulary Medication (Albuterol Sulfate (Proair Respiclick)) 2 puff PRN Q6HRS PRN IH SHORTNESS OF BREATH; Start 11/02/18 at 18:00; Stop 11/02/18 at 18:04; Status DC Calcium/Vitamin D (Oscal D 500mg/ 200uts) 1 tab BIDWMEALS PO Last administered on 11/05/18 08:39; Start 11/03/18 at 08:00 Citalopram Hydrobromide (CeleXA) 40 mg DAILY PO Last administered on 11/05/18 08:39; Start 11/03/18 at 09:00 Metronidazole 100 ml @ 100 mls/hr 1X ONCE IV Last administered on 11/02/18 19:59; Start 11/02/18 at 18:00; Stop 11/02/18 at 18:59; Status DC Metronidazole (Flagyl) 500 mg Q8HRS PO Last administered on 11/04/18at 13:38; Start 11/02/18 at 22:00; Stop 11/04/18 at 14:23; Status DC Albuterol Sulfate (Ventolin Neb Soln) 2.5 mg PRN Q6HRS PRN NEB SHORTNESS OF SHANN[place] ATH; Start 11/02/18 at 18:15 Pharmacy Consult (C.diff Med Screen By Rx) 1 each 1X ONCE MC ; Start 11/02/18 at 19:45; Stop 11/02/18 at 19:46; Status UNV Lactobacillus Rhamnosus (Culturelle) 1 cap BID PO ; Start 11/02/18 at 21:00; Stop 11/02/18 at 20:09; Status DC Ibuprofen (Motrin) 600 mg PRN Q8HRS PRN PO PAIN Last administered on 11/04/18at 03:52; Start 11/04/18 at 03:30 Potassium Chloride (Klor-Con) 40 meq 1X ONCE PO Last administered on 11/04/18at 06:52; Start 11/04/18 at 06:45; Stop 11/04/18 at 06:46; Status DC Potassium Chloride (Klor-Con) 20 meq 1X PO ; Start 11/04/18 at 09:30 Potassium Chloride/Water 100 ml @ 100 mls/hr Q1H IV Last administered on 11/04/18at 15:41; Start 11/04/18 at 10:00; Stop 11/04/18 at 11:59; Status DC Magnesium Sulfate 100 ml @ 25 mls/hr 1X ONCE IV Last administered on 11/04/18at 18:05; Start 11/04/18 at 11:30; Stop 11/04/18 at 15:29; Status DC Ondansetron HCl (Zofran Odt) 4 mg PRN Q6HRS PRN PO NAUSEA/VOMITING; Start 11/05/18 at 11:30 Loperamide HCl (Imodium) 2 mg PRN Q15MIN PRN PO DIARRHEA; Start 11/05/18 at 11:30 Clonidine HCl (Catapres) 0.1 mg PRN Q1HR PRN PO HYPERTENSION; Start 11/05/18 at 11:30 Active Scripts Active Prednisone 50 Mg Tablet 1 Tab PO DAILY Culturelle (Lactobacillus Rhamnosus Gg) 1 Each Cap.sprink 1 Cap PO BID 30 Days Amlodipine Besylate 5 Mg Tablet 5 Mg PO DAILY 30 Days Doxycycline Hyclate 100 Mg Tablet 100 Mg PO BID 5 Days Imodium A-D (Loperamide HCl) 2 Mg Capsule 2 Mg PO PRN TID PRN Reported Calcium + Vitamin D Tablet (Calcium Carbonate/Vitamin D3) 1 Each Tablet 1 Each PO BID Prolia (Denosumab) 60 Mg/1 Ml Disp.syrin 60 Mg SQ [id number] Memantine HCl 10 Mg Tablet 10 Mg PO BID Proair Respiclick (Albuterol Sulfate) 90 Mcg Aer.pow.ba 2 Puff IH PRN Q6HRS PRN Meloxicam 7.5 Mg Tablet 7.5 Mg PO DAILY Celexa (Citalopram Hydrobromide) 40 Mg Tablet 1 Tab PO DAILY Aricept (Donepezil Hcl) 10 Mg Tablet 1 Tab PO DAILY Vitals/I & O Vital Sign - Last 24 Hours 11/04/18 11/04/18 11/04/18 11/04/18 14:13 19:00 20:00 23:00 Temp 98.1 98.4 97.7 98.1 98.4 97.7 Pulse 71 68 68 Resp 18 18 16 B/P (MAP) 146/82 (103) 146/75 (98) 144/84 (104) Pulse Ox 92 92 95 O2 Delivery Room Air Room Air Room Air Room Air 11/05/18 11/05/18 11/05/18 11/05/18 03:00 07:00 08:39 11:00 Temp 97.5 98.2 98.3 97.5 98.2 98.3 Pulse 64 64 64 72 Resp 20 16 17 B/P (MAP) 125/81 (96) 131/70 (90) 125/81 127/78 (94) Pulse Ox 93 91 93 O2 Delivery Room Air Room Air Room Air Intake and Output 11/04/18 11/04/18 11/05/18 15:00 23:00 07:00 Intake Total 200 ml 420 ml 0 ml Balance 200 ml 420 ml 0 ml Nutrition Consultation Dietary Evaluation: Recommendations by RD: Increase Calorie Intake, Protein supplementation Comments: ensure bid magic cup bid Expected Outcomes/Goals: to meet > 75% est nutr needs Interpretation of weight loss: >5% in 1 month Malnutrition Findings: Food and Nutrition Intake (Sev: <50% est energy req 5days Body Fat Depletion (Non Severe: Mild Depletion Weight Status: Underweight ELIZABETH JANE MD Nov 05, 2018 13:09
--- NOTE | 2018-11-05 14:11 | PDOC2 ---
GI CONSULT Reason For Consult: first episode concerning emesis every time she eats HPI: HPI: 83 y/o female w/ dementia admitted through ER from assisted living on 11/02/18. History from chart, nurse, patient, and her sister Tawana. Issues w/ n/v, abdominal "aching," and diarrhea since late September. Symptoms precipitated by taking antibiotics for a dental procedure - took what sounds like Augmentin, got sick, procedure was cancelled/rescheduled, then had procedure ("to get the infection out"), then was given another antibiotic. Was briefly admitted here on 10/23 for same and discharged the next day. At that time, abd x-ray was unremarkable. Tawana says she never really got better and so she was brought back due to concern for dehydration. Currently, diarrhea is no longer an issue (last stooled yesterday evening) and currently the patient denies abd pain. Per nurse, ate about 1/4 of breakfast (biscuits and gravy) and then held the emesis basin for awhile but has not vomited. Tawana is concerned she has acid reflux. We saw her in 05/2016 for diarrhea, abd discomfort, decreased appetite, weight loss, and non-specific enteritis on CT. Interestingly, these symptoms were also precipitated by taking an antibiotic (Augmentin) for a dental infection. C Diff and stool culture were negative at that time. The patient isn't sure if she has heartburn/reflux. Denies dysphagia. No hematemesis, hematochezia, or melena. Tawana says she was gaining weight in assisted living but assumes she is losing weight now. Not sure about previous EGD - maybe had one years ago. Previously estimated having a colonoscopy in ~2013 w/ polyps but Tawana thinks this was done more recently than that. Denies GB, liver, pancreas, or PUD history. Hepatic cysts noted on past imaging. Tawana thinks she is given something for pain at assisted living but isn't sure what. Here, she is taking ibuprofen and Meloxicam. No abd imaging this admission but AAS was ordered this afternoon. C Diff was negative. On PPN. Had head/brain imaging recently - CT in 04/2018 and MRI in 06/2018 - both note stable meningioma. PMH: PMH: per chart - HTN, HLD, OA, osteoporosis, gout, varicose veins, meningioma, depression, dementia, UTI, pneumonia, multiple bone fractures (jaw, wrist, pubic ramus) jaw surgery FH: Family History: No pertinent hx Social History: Smoke: No ALCOHOL: none Drugs: None ROS: GEN: +feels hot sometimes HEENT: Denies blurred vision, sore throat CV: Denies chest pain RESP: Denies shortness of air, cough GI: Per HPI : Denies hematuria, dysuria ENDO: ?weight changes NEURO: Denies confusion, dizziness MSK: Denies weakness, joint pain/swelling SKIN: Denies jaundice, pruritus Vitals: Vitals: Vital Signs Date Time Temp Pulse Resp B/P (MAP) Pulse Ox O2 Delivery O2 Flow Rate FiO2 11/05/18 11:00 98.3 72 17 127/78 (94) 93 Room Air 98.3 Labs: Labs: Laboratory Tests Test 11/05/18 05:45 Sodium Level 142 mmol/L (136-145) Potassium Level 3.8 mmol/L (3.5-5.1) Chloride Level 107 mmol/L (98-107) Carbon Dioxide Level 26 mmol/L (21-32) Anion Gap 9 (6-14) Blood Urea Nitrogen 5 mg/dL (7-20) Creatinine 0.7 mg/dL (0.6-1.0) Estimated GFR (Cockcroft-Gault) 79.9 Glucose Level 86 mg/dL (70-99) Calcium Level 7.5 mg/dL (8.5-10.1) BLOOD CULTURE Preliminary NO GROWTH AFTER 2 DAYS Allergies: Coded Allergies: No Known Drug Allergies (Unverified , 06/06/16) Medications: Please see EMR. Imaging: Imaging: - PE: GEN: NAD, sitting up in chair HEENT: Atraumatic, PERRL LUNGS: CTAB HEART: RRR ABD: NABS, S/ND/NT EXTREMITY: No edema SKIN: No rashes, no jaundice NEURO/PSYCH: awake and alert, forgetful A/P: A/P: N/v, ?abd pain, diarrhea - precipitated by antibiotic use, now nausea is biggest issue Dementia Hypokalemia, hypomagnesemia CRC screen, h/o colon polyps - unclear timing of last colonoscopy Hepatic cysts - noted on CT in 2017 NSAID use -- Similar incident 2.5 years ago. Taking ibuprofen and Meloxicam - ?need for both - defer to primary. Add PPI - will do IV for now until reliably eating. Await AAS. Other recs pending this. Consider stool culture if diarrhea recurs. Consider GB US/HIDA, EGD/colonoscopy, GES - could pursue these as outpt. ADRIENNE TIWARI Nov 05, 2018 14:11
[2018-11-05] MEDS: AMINO AC 3%/ELECTROLYTE/GLYCER 1,000 ML IV SCH (14:56)
[2018-11-05 15:00] VITALS: BP 126/79
--- NOTE | 2018-11-05 16:57 | RAD ---
2 view abdominal series and AP upright chest x-ray Clinical indications: Nausea and vomiting. FINDINGS: There is diffuse dilatation of the small bowel and colon down into the rectosigmoid region. No significant air-fluid levels are seen. This may represent a functional ileus. No obstructive bowel pattern is seen. No free intraperitoneal air is evident. Dextroscoliosis is seen. Chest x-ray demonstrates no acute lung infiltrate or pleural effusion or pulmonary edema or pneumothorax. Culture granuloma of the right lower lung zone is seen. No lung mass is evident. Heart size and pulmonary vasculature and mediastinum and both romain are unremarkable. Old healed bilateral rib cage fractures are evident. Scoliosis is seen. Nonunited old fracture of the lateral aspect of the right clavicle is seen. IMPRESSION: Mild functional ileus. Electronically signed by: Gage Connolly MD (11/05/2018 4:54 PM) [place] [id number]
[2018-11-05] MEDS: PANTOPRAZOLE IV PUSH 40 MG VIAL. IVP SCH (17:11)
[2018-11-05 19:00] VITALS: BP 144/78
[2018-11-05 23:00] VITALS: BP 135/92
[2018-11-06 03:00] VITALS: BP 137/86
[2018-11-06] MEDS: AMINO AC 3%/ELECTROLYTE/GLYCER 1,000 ML IV SCH ×2 (04:38→17:15)
[2018-11-06 07:00] VITALS: BP 135/84
[2018-11-06] MEDS: CALCIUM CARB/VIT D3 500/200 TABLET. PO SCH ×2 (07:09→17:15)
[2018-11-06] MEDS: CITALOPRAM 20 MG TABLET. PO SCH (07:09)
[2018-11-06] MEDS: MELOXICAM 7.5 MG TABLET PO SCH (07:10)
[2018-11-06] MEDS: LACTOBACILLUS RHAMNOSUS GG 1 CAPSULE. PO SCH ×2 (07:10→21:37)
[2018-11-06] MEDS: MEMANTINE 10 MG TABLET. PO SCH ×2 (07:10→21:37)
[2018-11-06] MEDS: PANTOPRAZOLE IV PUSH 40 MG VIAL. IVP SCH (07:30)
[2018-11-06] MEDS ORDERED: BARIUM SULFATE 340 GM SUSPENSION. PO ONE (08:00)
[2018-11-06] MEDS ORDERED: SIMETHICONE/SOD BICARB/CITRIC ACID PACKET. PO ONE (08:00)
[2018-11-06] MEDS ORDERED: BARIUM SULFATE 60% 355 ML SUSP PO ONE (08:00)
[2018-11-06] MEDS: amLODIPine BESYLATE 5 MG TABLET PO SCH (08:26)
[2018-11-06] MEDS ORDERED: IOHEXOL 300 MG/ML 100ML VIAL. PO ONE (08:30)
[2018-11-06] MEDS ORDERED: CONTRAST GIVEN. MC PRN (08:45)
[2018-11-06 11:00] VITALS: BP 155/77
--- NOTE | 2018-11-06 11:33 | PDOC ---
Subjective: Subjective: Stomach upset after barium. Hasn't eaten today but ate some meat and potatoes last night. Stooled last night - not diarrhea. Sister Tawana present. Objective: Objective: D/w nurse - also stooled this morning. Reviewed office records - no 'scopes there. Vital Signs: Vital Signs Date Time Temp Pulse Resp B/P (MAP) Pulse Ox O2 Delivery O2 Flow Rate FiO2 11/06/18 07:00 98.0 71 14 135/84 (101) 92 Room Air 98.0 Imaging: AAS 11/05 IMPRESSION: Mild functional ileus. UGI SBS 11/06 pending PE: GEN: NAD LUNGS: CTAB HEART: RRR ABD: NABS, S/ND/NT NEURO/PSYCH: A & O �3, forgetful A/P: N/v, ?abd pain, diarrhea - improved, precipitated by antibiotic use Dementia Hypomagnesemia NSAID use -- Await UGI/SBS. Was changed to PO PPI. ADRIENNE TIWARI Nov 06, 2018 11:33
--- NOTE | 2018-11-06 11:58 | PDOC ---
PROGRESS NOTES Chief Complaint Chief Complaint sepsis diarrhea - c diff neg nausea and vomiting after a meal recent abx for tooth extraction Epigastric abdominal pain dementia, encephalopathy is chronic weakness and debility History of Present Illness History of Present Illness acute abd series shows mild ileus STill some nausea Diarrhea not a prominent symptom now - c diff neg GI has ordered another imaging - just done PLAN: Await upper GI series COnt procalamine, so far elytes ok cont PT.OT, might need some rehabbing dw sister Vitals Vitals Vital Signs Date Time Temp Pulse Resp B/P (MAP) Pulse Ox O2 Delivery O2 Flow Rate FiO2 11/06/18 11:00 98.2 67 155/77 (103) 92 Room Air 98.2 11/06/18 07:00 14 Physical Exam General: Alert, Cooperative, No acute distress, Other (not oriented) Heart: Regular rate Lungs: Clear Abdomen: Normal bowel sounds, Soft, No tenderness, No hepatosplenomegaly Extremities: No clubbing, No edema, Normal pulses Skin: No rashes, No breakdown Review of Systems Review of Systems weak, poor po, fall risk, nausea, no emesis, loose stools, no cp, soa, fevers Assessment and Plan Assessmemt and Plan Problems Medical Problems: (1) Dementia Status: Chronic (2) Diarrhea Status: Acute (3) Encephalopathy Status: Chronic (4) Gastroenteritis Status: Acute (5) Generalized weakness Status: Acute (6) Leukocytosis Status: Acute (7) Nausea and vomiting Status: Acute (8) Sepsis Status: Acute Comment Review of Relevant I have reviewed the following items donovan (where applicable) has been applied. Labs Laboratory Tests Test 11/04/18 12:55 11/05/18 05:45 Potassium Level 3.4 mmol/L (3.5-5.1) 3.8 mmol/L (3.5-5.1) Sodium Level 142 mmol/L (136-145) Chloride Level 107 mmol/L (98-107) Carbon Dioxide Level 26 mmol/L (21-32) Anion Gap 9 (6-14) Blood Urea Nitrogen 5 mg/dL (7-20) Creatinine 0.7 mg/dL (0.6-1.0) Estimated GFR (Cockcroft-Gault) 79.9 Glucose Level 86 mg/dL (70-99) Calcium Level 7.5 mg/dL (8.5-10.1) Microbiology 9/6/19 Blood Culture - Preliminary, Resulted NO GROWTH AFTER 3 DAYS Medications Current Medications Sodium Chloride 1,000 ml @ 1,000 mls/hr Q1H IV Last administered on 11/02/18 15:04; Start 11/02/18 at 14:39; Stop 11/02/18 at 15:38; Status DC Sodium Chloride 1,000 ml @ 100 mls/hr Q10H IV Last administered on 11/03/18at 16:19; Start 11/02/18 at 17:10; Stop 11/03/18 at 17:09; Status DC Ondansetron HCl (Zofran Odt) 4 mg PRN Q8HRS PRN PO NAUSEA/VOMITING Last administered on 11/05/18 07:04; Start 11/02/18 at 18:00; Stop 11/05/18 at 11:24; Status DC Amlodipine Besylate (Norvasc) 5 mg DAILY PO Last administered on 11/05/18 08:39; Start 11/03/18 at 09:00 Lactobacillus Rhamnosus (Culturelle) 1 cap BID PO Last administered on 11/05/18 21:18; Start 11/02/18 at 21:00 Loperamide HCl (Imodium) 2 mg PRN TID PRN PO DIARRHEA Last administered on 11/03/18 06:11; Start 11/02/18 at 18:00; Stop 11/05/18 at 12:21; Status DC Meloxicam (Mobic) 7.5 mg DAILY PO Last administered on 11/05/18 08:39; Start 11/03/18 at 09:00 Memantine (Namenda) 10 mg BID PO Last administered on 11/05/18 21:18; Start 11/02/18 at 21:00 Non-Formulary Medication (Albuterol Sulfate (Proair Respiclick)) 2 puff PRN Q6HRS PRN IH SHORTNESS OF BREATH; Start 11/02/18 at 18:00; Stop 11/02/18 at 18:04 ; Status DC Calcium/Vitamin D (Oscal D 500mg/ 200uts) 1 tab BIDWMEALS PO Last administered on 11/05/18 17:15; Start 11/03/18 at 08:00 Citalopram Hydrobromide (CeleXA) 40 mg DAILY PO Last administered on 11/05/18 08:39; Start 11/03/18 at 09:00 Metronidazole 100 ml @ 100 mls/hr 1X ONCE IV Last administered on 11/02/18at 19:59; Start 11/02/18 at 18:00; Stop 11/02/18 at 18:59; Status DC Metronidazole (Flagyl) 500 mg Q8HRS PO Last administered on 11/04/18at 13:38; Start 11/02/18 at 22:00; Stop 11/04/18 at 14:23; Status DC Albuterol Sulfate (Ventolin Neb Soln) 2.5 mg PRN Q6HRS PRN NEB SHORTNESS OF BREATH; Start 11/02/18 at 18:15 Pharmacy Consult (C.diff Med Screen By Rx) 1 each 1X ONCE MC ; Start 11/02/18 at 19:45; Stop 11/02/18 at 19:46; Status UNV Lactobacillus Rhamnosus (Culturelle) 1 cap BID PO ; Start 11/02/18 at 21:00; Stop 11/02/18 at 20:09; Status DC Ibuprofen (Motrin) 600 mg PRN Q8HRS PRN PO PAIN Last administered on 11/04/18 03:52; Start 11/04/18 at 03:30; Stop 11/06/18 at 08:39; Status DC Potassium Chloride (Klor-Con) 40 meq 1X ONCE PO Last administered on 11/04/18at 06:52; Start 11/04/18 at 06:45; Stop 11/04/18 at 06:46; Status DC Potassium Chloride (Klor-Con) 20 meq 1X PO ; Start 11/04/18 at 09:30 Potassium Chloride/Water 100 ml @ 100 mls/hr Q1H IV Last administered on 11/04/18at 15:41; Start 11/04/18 at 10:00; Stop 11/04/18 at 11:59; Status DC Magnesium Sulfate 100 ml @ 25 mls/hr 1X ONCE IV Last administered on 11/04/18at 18:05; Start 11/04/18 at 11:30; Stop 11/04/18 at 15:29; Status DC Ondansetron HCl (Zofran Odt) 4 mg PRN Q6HRS PRN PO NAUSEA/VOMITING; Start 11/05/18 at 11:30 Loperamide HCl (Imodium) 2 mg PRN Q15MIN PRN PO DIARRHEA; Start 11/05/18 at 11:30 Clonidine HCl (Catapres) 0.1 mg PRN Q1HR PRN PO HYPERTENSION; Start 11/05/18 at 11:30 Amino Acids/ Glycerin/ Electrolytes 1,000 ml @ 75 mls/hr [id number] IV Last administered on 11/06/18at 04:38; Start 11/05/18 at 13:15 Pantoprazole Sodium (PROTONIX VIAL for IV PUSH) 40 mg BIDAC IVP Last administered on 11/05/18at 17:15; Start 11/05/18 at 16:30; Stop 11/06/18 at 08:39; Status DC Barium Sulfate (Liquid E-Z Paque) 710 ml 1X ONCE PO ; Start 11/06/18 at 08:00; Stop 11/06/18 at 08:03; Status DC Barium Sulfate (E-Z-Hd) 340 gm 1X ONCE PO ; Start 11/06/18 at 08:00; Stop 11/06/18 at 08:03; Status DC Simethicone/ Sodium Bicarb/ Citric Ac (E-Z-Gas) 1 packet 1X ONCE PO ; Start 11/06/18 at 08:00; Stop 11/06/18 at 08:03; Status DC Iohexol (Omnipaque 300 Mg/ml) 400 ml 1X ONCE PO Last administered on 11/06/18at 08:56; Start 11/06/18 at 08:30; Stop 11/06/18 at 08:31; Status DC Info (CONTRAST GIVEN -- Rx MONITORING) 1 each PRN DAILY PRN MC SEE COMMENTS; Start 11/06/18 at 08:45; Stop 11/08/18 at 08:44 Pantoprazole Sodium (Protonix) 40 mg DAILYAC PO ; Start 11/07/18 at 07:30 Active Scripts Active Prednisone 50 Mg Tablet 1 Tab PO DAILY Culturelle (Lactobacillus Rhamnosus Gg) 1 Each Cap.sprink 1 Cap PO BID 30 Days Amlodipine Besylate 5 Mg Tablet 5 Mg PO DAILY 30 Days Doxycycline Hyclate 100 Mg Tablet 100 Mg PO BID 5 Days Imodium A-D (Loperamide HCl) 2 Mg Capsule 2 Mg PO PRN TID PRN Reported Calcium + Vitamin D Tablet (Calcium Carbonate/Vitamin D3) 1 Each Tablet 1 Each PO BID Prolia (Denosumab) 60 Mg/1 Ml Disp.syrin 60 Mg SQ [id number] Memantine HCl 10 Mg Tablet 10 Mg PO BID Proair Respiclick (Albuterol Sulfate) 90 Mcg Aer.pow.ba 2 Puff IH PRN Q6HRS PRN Meloxicam 7.5 Mg Tablet 7.5 Mg PO DAILY Celexa (Citalopram Hydrobromide) 40 Mg Tablet 1 Tab PO DAILY Aricept (Donepezil Hcl) 10 Mg Tablet 1 Tab PO DAILY Vitals/I & O Vital Sign - Last 24 Hours 11/05/18 11/05/18 11/05/18 11/06/18 15:00 19:00 23:00 03:00 Temp 98.2 98.3 98.2 98.0 98.2 98.3 98.2 98.0 Pulse 68 68 79 72 Resp 17 18 18 18 B/P (MAP) 126/79 (95) 144/78 (100) 135/92 (106) 137/86 (103) Pulse Ox 93 98 94 91 O2 Delivery Room Air Room Air Room Air Room Air 11/06/18 11/06/18 07:00 11:00 Temp 98.0 98.2 98.0 98.2 Pulse 71 67 Resp 14 B/P (MAP) 135/84 (101) 155/77 (103) Pulse Ox 92 92 O2 Delivery Room Air Room Air Intake and Output 11/05/18 11/05/18 11/06/18 15:00 23:00 07:00 Intake Total 200 ml 1400 ml Balance 200 ml 1400 ml Nutrition Consultation Dietary Evaluation: Recommendations by RD: Increase Calorie Intake, Protein supplementation Comments: ensure bid magic cup bid Expected Outcomes/Goals: to meet > 75% est nutr needs Interpretation of weight loss: >5% in 1 month Malnutrition Findings: Food and Nutrition Intake (Sev: <50% est energy req 5days Body Fat Depletion (Non Severe: Mild Depletion Weight Status: Underweight ELIZABETH JANE MD Nov 06, 2018 11:58
[2018-11-06 15:00] VITALS: BP 135/80
--- NOTE | 2018-11-06 16:44 | RAD ---
Examination: UPPER GI W/SBFT History: Nausea and vomiting Comparison/Correlation: None Findings: Air-contrast upper GI examination with small bowel series was performed. Preliminary co founder and president image is unremarkable with no findings to suggest obstruction. Fluoroscopy was utilized for 2.1 minutes. 18 images were provided. The patient was image in the reverse Trendelenburg position due to limited ability to stand for this exam. Normal distention of the esophagus is identified with no stricture, webs, or diverticulum. Retrograde motion of the contrast within the esophagus is often seen during the exam. Prolonged contrast transit within the esophagus is noted due to retrograde motion often seen. Normal distention of the stomach is evident. Normal transit of contrast into the duodenum is evident. Duodenal sweep is grossly unremarkable although evaluation is somewhat limited due to limited patient mobility and as result limited patient positioning for this exam. Contrast reaches the cecum in less than 0.5 hour. No small bowel strictures identified. No definite suspicious filling defects within small bowel. Prone Valsalva drinking views were acquired. Small sliding hiatal hernia is present. Retrograde motion within the esophagus is again seen. Reflux of contrast from the stomach into the esophagus is suggested on multiple overhead images during the course of the small bowel series exam. Impression: No bowel obstruction. Retrograde motion of contrast within the esophagus is frequently seen. Gastric esophageal reflux also is suspected. Small sliding hiatal hernia is present. Electronically signed by: Yair Nevarez MD (11/06/2018 4:41 PM) [facility]
[2018-11-06 19:00] VITALS: BP 146/86
[2018-11-06 23:00] VITALS: BP 133/88
[2018-11-07 03:00] VITALS: BP 149/97
[2018-11-07] MEDS: AMINO AC 3%/ELECTROLYTE/GLYCER 1,000 ML IV SCH ×2 (05:15→11:31)
[2018-11-07 07:00] VITALS: BP 145/89
[2018-11-07] MEDS: CALCIUM CARB/VIT D3 500/200 TABLET. PO SCH ×2 (07:59→18:26)
[2018-11-07] MEDS: ONDANSETRON ODT 4 MG TAB.RAPDIS. PO PRN (07:59)
[2018-11-07] MEDS: LACTOBACILLUS RHAMNOSUS GG 1 CAPSULE. PO SCH ×2 (07:59→21:04)
[2018-11-07] MEDS: PANTOPRAZOLE 40 MG TABLET.DR. PO SCH (07:59)
[2018-11-07] MEDS: MELOXICAM 7.5 MG TABLET PO SCH (07:59)
[2018-11-07] MEDS: amLODIPine BESYLATE 5 MG TABLET PO SCH (08:00)
[2018-11-07] MEDS: CITALOPRAM 20 MG TABLET. PO SCH (08:00)
[2018-11-07] MEDS: MEMANTINE 10 MG TABLET. PO SCH ×2 (08:00→21:04)
--- NOTE | 2018-11-07 09:04 | PDOC ---
Subjective: Subjective: Didn't want breakfast, doesn't feel good, stomach upset, has nausea. Diarrhea once yesterday and twice this morning after barium. Objective: Objective: D/w nurse - sister upset because the doctor hasn't been around, says we're not doing anything for her. Vital Signs: Vital Signs Date Time Temp Pulse Resp B/P (MAP) Pulse Ox O2 Delivery O2 Flow Rate FiO2 11/07/18 08:00 84 149/97 11/07/18 07:00 97.9 19 97 Room Air 97.9 Labs: BLOOD CULTURE Preliminary NO GROWTH AFTER 4 DAYS Imaging: UGI/SBS 11/06/18 Impression: No bowel obstruction. Retrograde motion of contrast within the esophagus is frequently seen. Gastric esophageal reflux also is suspected. Small sliding hiatal hernia is present. PE: GEN: NAD LUNGS: CTAB HEART: RRR ABD: NABS, S/ND, vague LUQ discomfort NEURO/PSYCH: forgetful - looks to sister to answer questions A/P: Nausea, LUQ discomfort, diarrhea - GERD/dysmotility on imaging as above Dementia -- Offered EGD for tomorrow - sister would like to proceed. Recheck labs, continue PPI. Try GI cocktail, check stool culture. ADRIENNE TIWARI Nov 07, 2018 09:04
[2018-11-07] MEDS ORDERED: LIDO:MAALOX 1:1 20 ML SINGLE DOSE. PO PRN (09:15)
--- NOTE | 2018-11-07 10:30 | PDOC ---
PROGRESS NOTES Chief Complaint Chief Complaint IMPRESSION sepsis diarrhea - c diff neg nausea and vomiting after a meal GERD/dysmotility on imaging as above Dementia recent abx for tooth extraction Epigastric abdominal pain weakness and debility EGD for tomorrow 11/08 - 28 MIN PT EXAM, CHART REVIEW, > 50% OF TIME SPENT WITH EXAM, CHART REVIEW, PT CARE COORDINATION History of Present Illness History of Present Illness acute abd series shows mild ileus STill some nausea Diarrhea not a prominent symptom now - c diff neg GI has ordered another imaging - just done PLAN: Await upper GI series COnt procalamine, so far elytes ok cont PT.OT, might need some rehabbing dw sister Vitals Vitals Vital Signs Date Time Temp Pulse Resp B/P (MAP) Pulse Ox O2 Delivery O2 Flow Rate FiO2 11/07/18 08:00 84 149/97 11/07/18 07:00 97.9 19 97 Room Air 97.9 Physical Exam General: Alert, Cooperative, No acute distress, Other (not oriented) Heart: Regular rate, Normal S1 Lungs: Clear Abdomen: Normal bowel sounds, Soft, No tenderness, No hepatosplenomegaly Extremities: No clubbing, No edema, Normal pulses Skin: No rashes, No breakdown Assessment and Plan Assessmemt and Plan Problems Medical Problems: (1) Dementia Status: Chronic (2) Diarrhea Status: Acute (3) Encephalopathy Status: Chronic (4) Gastroenteritis Status: Acute (5) Generalized weakness Status: Acute (6) Leukocytosis Status: Acute (7) Nausea and vomiting Status: Acute (8) Sepsis Status: Acute Comment Review of Relevant I have reviewed the following items donovan (where applicable) has been applied. Labs Microbiology 11/02/18 Blood Culture - Preliminary, Resulted NO GROWTH AFTER 4 DAYS Medications Current Medications Sodium Chloride 1,000 ml @ 1,000 mls/hr Q1H IV Last administered on 11/02/18at 15:04; Start 11/02/18 at 14:39; Stop 11/02/18 at 15:38; Status DC Sodium Chloride 1,000 ml @ 100 mls/hr Q10H IV Last administered on 11/03/18at 16:19; Start 11/02/18 at 17:10; Stop 11/03/18 at 17:09; Status DC Ondansetron HCl (Zofran Odt) 4 mg PRN Q8HRS PRN PO NAUSEA/VOMITING Last administered on 11/05/18 07:04; Start 11/02/18 at 18:00; Stop 11/05/18 at 11:24; Status DC Amlodipine Besylate (Norvasc) 5 mg DAILY PO Last administered on 11/07/18 08:00; Start 11/03/18 at 09:00 Lactobacillus Rhamnosus (Culturelle) 1 cap BID PO Last administered on 11/07/18 08:00; Start 11/02/18 at 21:00 Loperamide HCl (Imodium) 2 mg PRN TID PRN PO DIARRHEA Last administered on 11/03/18 06:11; Start 11/02/18 at 18:00; Stop 11/05/18 at 12:21; Status DC Meloxicam (Mobic) 7.5 mg DAILY PO Last administered on 11/07/18 08:00; Start 11/03/18 at 09:00 Memantine (Namenda) 10 mg BID PO Last administered on 11/07/18 08:00; Start 11/02/18 at 21:00 Non-Formulary Medication (Albuterol Sulfate (Proair Respiclick)) 2 puff PRN Q6HRS PRN IH SHORTNESS OF BREATH; Start 11/02/18 at 18:00; Stop 11/02/18 at 18:04; Status DC Calcium/Vitamin D (Oscal D 500mg/ 200uts) 1 tab BIDWMEALS PO Last administered on 11/07/18 08:00; Start 11/03/18 at 08:00 Citalopram Hydrobromide (CeleXA) 40 mg DAILY PO Last administered on 11/07/18 08:00; Start 11/03/18 at 09:00 Metronidazole 100 ml @ 100 mls/hr 1X ONCE IV Last administered on 11/02/18 19:59; Start 11/02/18 at 18:00; Stop 11/02/18 at 18:59; Status DC Metronidazole (Flagyl) 500 mg Q8HRS PO Last administered on 11/04/18 13:38; Start 11/02/18 at 22:00; Stop 11/04/18 at 14:23; Status DC Albuterol Sulfate (Ventolin Neb Soln) 2.5 mg PRN Q6HRS PRN NEB SHORTNESS OF BREATH; Start 11/02/18 at 18:15 Pharmacy Consult (C.diff Med Screen By Rx) 1 each 1X ONCE MC ; Start 11/02/18 at 19:45; Stop 11/02/18 at 19:46; Status UNV Lactobacillus Rhamnosus (Culturelle) 1 cap BID PO ; Start 11/02/18 at 21:00; Stop 11/02/18 at 20:09; Status DC Ibuprofen (Motrin) 600 mg PRN Q8HRS PRN PO PAIN Last administered on 11/04/18at 03:52; Start 11/04/18 at 03:30; Stop 11/06/18 at 08:39; Status DC Potassium Chloride (Klor-Con) 40 meq 1X ONCE PO Last administered on 11/04/18at 06:52; Start 11/04/18 at 06:45; Stop 11/04/18 at 06:46; Status DC Potassium Chloride (Klor-Con) 20 meq 1X PO ; Start 11/04/18 at 09:30 Potassium Chloride/Water 100 ml @ 100 mls/hr Q1H IV Last administered on 11/04/18at 15:41; Start 11/04/18 at 10:00; Stop 11/04/18 at 11:59; Status DC Magnesium Sulfate 100 ml @ 25 mls/hr 1X ONCE IV Last administered on 11/04/18at 18:05; Start 11/04/18 at 11:30; Stop 11/04/18 at 15:29; Status DC Ondansetron HCl (Zofran Odt) 4 mg PRN Q6HRS PRN PO NAUSEA/VOMITING Last administered on 11/07/18at 08:00; Start 11/05/18 at 11:30 Loperamide HCl (Imodium) 2 mg PRN Q15MIN PRN PO DIARRHEA; Start 11/05/18 at 11:30 Clonidine HCl (Catapres) 0.1 mg PRN Q1HR PRN PO HYPERTENSION; Start 11/05/18 at 11:30 Amino Acids/ Glycerin/ Electrolytes 1,000 ml @ 75 mls/hr [id number] IV Last administered on 11/06/18at 17:15; Start 11/05/18 at 13:15 Pantoprazole Sodium (PROTONIX VIAL for IV PUSH) 40 mg BIDAC IVP Last administered on 11/05/18at 17:15; Start 11/05/18 at 16:30; Stop 11/06/18 at 08:39; Status DC Barium Sulfate (Liquid E-Z Paque) 710 ml 1X ONCE PO ; Start 11/06/18 at 08:00; Stop 11/06/18 at 08:03; Status DC Barium Sulfate (E-Z-Hd) 340 gm 1X ONCE PO ; Start 11/06/18 at 08:00; Stop 11/06/18 at 08:03; Status DC Simethicone/ Sodium Bicarb/ Citric Ac (E-Z-Gas) 1 packet 1X ONCE PO ; Start 11/06/18 at 08:00; Stop 11/06/18 at 08:03; Status DC Iohexol (Omnipaque 300 Mg/ml) 400 ml 1X ONCE PO Last administered on 11/06/18at 08:56; Start 11/06/18 at 08:30; Stop 11/06/18 at 08:31; Status DC Info (CONTRAST GIVEN -- Rx MONITORING) 1 each PRN DAILY PRN MC SEE COMMENTS; Start 11/06/18 at 08:45; Stop 11/08/18 at 08:44 Pantoprazole Sodium (Protonix) 40 mg DAILYAC PO Last administered on 11/07/18at 08:00; Start 11/07/18 at 07:30 Multi-Ingredient Mouthwash/Gargle (Gi Cocktail) 20 ml PRN QID PRN PO abd pain; Start 11/07/18 at 09:15 Active Scripts Active Prednisone 50 Mg Tablet 1 Tab PO DAILY Culturelle (Lactobacillus Rhamnosus Gg) 1 Each Cap.sprink 1 Cap PO BID 30 Days Amlodipine Besylate 5 Mg Tablet 5 Mg PO DAILY 30 Days Doxycycline Hyclate 100 Mg Tablet 100 Mg PO BID 5 Days Imodium A-D (Loperamide HCl) 2 Mg Capsule 2 Mg PO PRN TID PRN Reported Calcium + Vitamin D Tablet (Calcium Carbonate/Vitamin D3) 1 Each Tablet 1 Each PO BID Prolia (Denosumab) 60 Mg/1 Ml Disp.syrin 60 Mg SQ [id number] Memantine HCl 10 Mg Tablet 10 Mg PO BID Proair Respiclick (Albuterol Sulfate) 90 Mcg Aer.pow.ba 2 Puff IH PRN Q6HRS PRN Meloxicam 7.5 Mg Tablet 7.5 Mg PO DAILY Celexa (Citalopram Hydrobromide) 40 Mg Tablet 1 Tab PO DAILY Aricept (Donepezil Hcl) 10 Mg Tablet 1 Tab PO DAILY Vitals/I & O Vital Sign - Last 24 Hours 11/06/18 11/06/18 11/06/18 11/06/18 11:00 15:00 19:00 23:00 Temp 98.2 98.1 98.4 97.5 98.2 98.1 98.4 97.5 Pulse 67 70 70 69 Resp 16 16 16 B/P (MAP) 155/77 (103) 135/80 (98) 146/86 (106) 133/88 (103) Pulse Ox 92 94 95 93 O2 Delivery Room Air Room Air Room Air Room Air 11/07/18 11/07/18 11/07/18 03:00 07:00 08:00 Temp 97.7 97.9 97.7 97.9 Pulse 84 73 84 Resp 18 19 B/P (MAP) 149/97 (114) 145/89 (107) 149/97 Pulse Ox 94 97 O2 Delivery Room Air Room Air Intake and Output 11/06/18 11/06/18 11/07/18 15:00 23:00 07:00 Intake Total 1150 ml 70 ml Balance 1150 ml 70 ml Nutrition Consultation Dietary Evaluation: Recommendations by RD: Increase Calorie Intake, Protein supplementation Comments: ensure bid magic cup bid Expected Outcomes/Goals: to meet > 75% est nutr needs Interpretation of weight loss: >5% in 1 month Malnutrition Findings: Food and Nutrition Intake (Sev: <50% est energy req 5days Body Fat Depletion (Non Severe: Mild Depletion Weight Status: Underweight SOCORRO STEVE MD Nov 07, 2018 10:30
[2018-11-07 11:00] VITALS: BP 145/85
--- NOTE | 2018-11-07 12:56 | NUR ---
SW following Pt. PT/OT recommends Home health. MARCIAL will send resumption orders to [facility] upon dc. Will continue to follow.
[2018-11-07 13:48] LABS: HEMATOCRIT 39.2 % (36.0-47.0); HEMOGLOBIN 13.2 g/dL (12.0-15.5); RED BLOOD COUNT 4.52 x10^6/uL (3.50-5.40); WHITE BLOOD COUNT 8.8 x10^3/uL (4.0-11.0)
[2018-11-07 14:15] LABS: ALBUMIN 2.8 g/dL (3.4-5.0); ALBUMIN/GLOBULIN RATIO 0.8 (1.0-1.7); CALCIUM 8.7 mg/dL (8.5-10.1); CREATININE 0.8 mg/dL (0.6-1.0); GFR 68.5; POTASSIUM 4.4 mmol/L (3.5-5.1); TOTAL BILIRUBIN 0.2 mg/dL (0.2-1.0); TOTAL PROTEIN 6.5 g/dL (6.4-8.2)
[2018-11-07 14:57] VITALS: BP 136/81
[2018-11-07 19:00] VITALS: BP 143/91
[2018-11-07 23:00] VITALS: BP 144/94
[2018-11-08 03:00] VITALS: BP 142/88
[2018-11-08 07:00] VITALS: BP 138/90
[2018-11-08] MEDS ORDERED: IV RINGERS,LACTATED 1000ML 1,000 ML IV SCH (07:00)
[2018-11-08] MEDS ORDERED: fentaNYL PF VIAL 100 MCG/2 ML VIAL IV PRN ×2 (07:00)
[2018-11-08] MEDS ORDERED: HYDROmorphone 2 MG/ML VIAL IV PRN (07:00)
[2018-11-08] MEDS ORDERED: MORPHINE SULFATE 2 MG/ML VIAL. IV PRN (07:00)
[2018-11-08] MEDS ORDERED: PROCHLORPERAZINE 10 MG/2 ML VIAL. IV PRN (07:00)
[2018-11-08 07:12] LABS: BASO # 0.1 x10^3/uL (0.0-0.2); BASO % 1 % (0-3); EOS # 0.5 x10^3/uL (0.0-0.7); EOS % 6 % (0-3); HEMATOCRIT 40.1 % (36.0-47.0); HEMOGLOBIN 13.4 g/dL (12.0-15.5); LYMPH # 1.3 x10^3/uL (1.0-4.8); LYMPH % 15 % (24-48); MEAN CORPUSCULAR HEMOGLOBIN 29 pg (25-35); MEAN CORPUSCULAR HGB CONC 34 g/dL (31-37); MEAN CORPUSCULAR VOLUME 88 fL (79-100); MONO # 0.6 x10^3/uL (0.0-1.1); MONO % 7 % (0-9); NEUT # 6.3 x10^3/uL (1.8-7.7); NEUT % 72 % (31-73); PLATELET COUNT 379 x10^3/uL (140-400); RED BLOOD COUNT 4.59 x10^6/uL (3.50-5.40); RED CELL DISTRIBUTION WIDTH 15.5 % (11.5-14.5); WHITE BLOOD COUNT 8.7 x10^3/uL (4.0-11.0)
[2018-11-08] MEDS: PANTOPRAZOLE 40 MG TABLET.DR. PO SCH (07:30)
[2018-11-08 07:50] LABS: ALBUMIN 2.9 g/dL (3.4-5.0); ALBUMIN/GLOBULIN RATIO 0.9 (1.0-1.7); CALCIUM 8.8 mg/dL (8.5-10.1); CREATININE 0.7 mg/dL (0.6-1.0); GFR 79.9; TOTAL BILIRUBIN 0.2 mg/dL (0.2-1.0); TOTAL PROTEIN 6.2 g/dL (6.4-8.2)
[2018-11-08] MEDS: CALCIUM CARB/VIT D3 500/200 TABLET. PO SCH ×2 (08:00→17:00)
[2018-11-08 08:08] LABS: POTASSIUM 4.6 mmol/L (3.5-5.1)
[2018-11-08] MEDS: LACTOBACILLUS RHAMNOSUS GG 1 CAPSULE. PO SCH ×2 (09:00→20:47)
[2018-11-08] MEDS: MEMANTINE 10 MG TABLET. PO SCH ×2 (09:00→20:47)
--- NOTE | 2018-11-08 10:53 | PDOC ---
PROGRESS NOTES Chief Complaint Chief Complaint IMPRESSION Mild ileus diarrhea - c diff neg PERSISTENT nausea and vomiting after a meal GERD/dysmotility on imaging as above Dementia recent abx for tooth extraction Epigastric abdominal pain weakness and debility History of Present Illness History of Present Illness acute abd series shows mild ileus STill persistent nausea Small bowel series shows no obstruction Diarrhea not a prominent symptom now - c diff neg FOr EGD later STill poor pO< barely 50% of a tray per family NEW issue, never had similar problems before NOw weighs 98 lbs from 109 PLAN: EGD later IF egd unrevealing, i might order CTA angio abd - look for signs of mesenteric ischemia since "fear of eating bec of nausea" though, not pain Dw senior account representative KEep IVF for now, poor po Nutrition on board Vitals Vitals Vital Signs Date Time Temp Pulse Resp B/P (MAP) Pulse Ox O2 Delivery O2 Flow Rate FiO2 11/08/18 07:00 97.9 71 18 138/90 (106) 93 Room Air 97.9 Physical Exam General: Alert, Cooperative, No acute distress, Other (not oriented) Heart: Regular rate, Normal S1 Lungs: Clear Abdomen: Normal bowel sounds, Soft, No tenderness, No hepatosplenomegaly Extremities: No clubbing, No edema, Normal pulses Skin: No rashes, No breakdown Labs LABS Laboratory Tests Test 11/07/18 13:21 11/08/18 05:30 White Blood Count 8.8 x10^3/uL (4.0-11.0) 8.7 x10^3/uL (4.0-11.0) Red Blood Count 4.52 x10^6/uL (3.50-5.40) 4.59 x10^6/uL (3.50-5.40) Hemoglobin 13.2 g/dL (12.0-15.5) 13.4 g/dL (12.0-15.5) Hematocrit 39.2 % (36.0-47.0) 40.1 % (36.0-47.0) Mean Corpuscular Volume 87 fL (79-100) 88 fL (79-100) Mean Corpuscular Hemoglobin 29 pg (25-35) 29 pg (25-35) Mean Corpuscular Hemoglobin Concent 34 g/dL (31-37) 34 g/dL (31-37) Red Cell Distribution Width 15.0 % (11.5-14.5) 15.5 % (11.5-14.5) Platelet Count 361 x10^3/uL (140-400) 379 x10^3/uL (140-400) Sodium Level 139 mmol/L (136-145) 140 mmol/L (136-145) Potassium Level 4.4 mmol/L (3.5-5.1) 4.6 mmol/L (3.5-5.1) Chloride Level 106 mmol/L (98-107) 105 mmol/L (98-107) Carbon Dioxide Level 27 mmol/L (21-32) 28 mmol/L (21-32) Anion Gap 6 (6-14) 7 (6-14) Blood Urea Nitrogen 15 mg/dL (7-20) 17 mg/dL (7-20) Creatinine 0.8 mg/dL (0.6-1.0) 0.7 mg/dL (0.6-1.0) Estimated GFR (Cockcroft-Gault) 68.5 79.9 BUN/Creatinine Ratio 19 (6-20) 24 (6-20) Glucose Level 105 mg/dL (70-99) 94 mg/dL (70-99) Calcium Level 8.7 mg/dL (8.5-10.1) 8.8 mg/dL (8.5-10.1) Total Bilirubin 0.2 mg/dL (0.2-1.0) 0.2 mg/dL (0.2-1.0) Aspartate Amino Transf (AST/SGOT) 13 U/L (15-37) 18 U/L (15-37) Alanine Aminotransferase (ALT/SGPT) 14 U/L (14-59) 19 U/L (14-59) Alkaline Phosphatase 34 U/L (46-116) 35 U/L (46-116) Total Protein 6.5 g/dL (6.4-8.2) 6.2 g/dL (6.4-8.2) Albumin 2.8 g/dL (3.4-5.0) 2.9 g/dL (3.4-5.0) Albumin/Globulin Ratio 0.8 (1.0-1.7) 0.9 (1.0-1.7) Neutrophils (%) (Auto) 72 % (31-73) Lymphocytes (%) (Auto) 15 % (24-48) Monocytes (%) (Auto) 7 % (0-9) Eosinophils (%) (Auto) 6 % (0-3) Basophils (%) (Auto) 1 % (0-3) Neutrophils # (Auto) 6.3 x10^3/uL (1.8-7.7) Lymphocytes # (Auto) 1.3 x10^3/uL (1.0-4.8) Monocytes # (Auto) 0.6 x10^3/uL (0.0-1.1) Eosinophils # (Auto) 0.5 x10^3/uL (0.0-0.7) Basophils # (Auto) 0.1 x10^3/uL (0.0-0.2) Review of Systems Review of Systems nausea, poor po., weight loss, no fever, no urinary sxs, loose stools coming down Assessment and Plan Assessmemt and Plan Problems Medical Problems: (1) Dementia Status: Chronic (2) Diarrhea Status: Acute (3) Encephalopathy Status: Chronic (4) Gastroenteritis Status: Acute (5) Generalized weakness Status: Acute (6) Leukocytosis Status: Acute (7) Nausea and vomiting Status: Acute (8) Sepsis Status: Acute Comment Review of Relevant I have reviewed the following items donovan (where applicable) has been applied. Labs Laboratory Tests Test 11/07/18 13:21 11/08/18 05:30 White Blood Count 8.8 x10^3/uL (4.0-11.0) 8.7 x10^3/uL (4.0-11.0) Red Blood Count 4.52 x10^6/uL (3.50-5.40) 4.59 x10^6/uL (3.50-5.40) Hemoglobin 13.2 g/dL (12.0-15.5) 13.4 g/dL (12.0-15.5) Hematocrit 39.2 % (36.0-47.0) 40.1 % (36.0-47.0) Mean Corpuscular Volume 87 fL (79-100) 88 fL (79-100) Mean Corpuscular Hemoglobin 29 pg (25-35) 29 pg (25-35) Mean Corpuscular Hemoglobin Concent 34 g/dL (31-37) 34 g/dL (31-37) Red Cell Distribution Width 15.0 % (11.5-14.5) 15.5 % (11.5-14.5) Platelet Count 361 x10^3/uL (140-400) 379 x10^3/uL (140-400) Sodium Level 139 mmol/L (136-145) 140 mmol/L (136-145) Potassium Level 4.4 mmol/L (3.5-5.1) 4.6 mmol/L (3.5-5.1) Chloride Level 106 mmol/L (98-107) 105 mmol/L (98-107) Carbon Dioxide Level 27 mmol/L (21-32) 28 mmol/L (21-32) Anion Gap 6 (6-14) 7 (6-14) Blood Urea Nitrogen 15 mg/dL (7-20) 17 mg/dL (7-20) Creatinine 0.8 mg/dL (0.6-1.0) 0.7 mg/dL (0.6-1.0) Estimated GFR (Cockcroft-Gault) 68.5 79.9 BUN/Creatinine Ratio 19 (6-20) 24 (6-20) Glucose Level 105 mg/dL (70-99) 94 mg/dL (70-99) Calcium Level 8.7 mg/dL (8.5-10.1) 8.8 mg/dL (8.5-10.1) Total Bilirubin 0.2 mg/dL (0.2-1.0) 0.2 mg/dL (0.2-1.0) Aspartate Amino Transf (AST/SGOT) 13 U/L (15-37) 18 U/L (15-37) Alanine Aminotransferase (ALT/SGPT) 14 U/L (14-59) 19 U/L (14-59) Alkaline Phosphatase 34 U/L (46-116) 35 U/L (46-116) Total Protein 6.5 g/dL (6.4-8.2) 6.2 g/dL (6.4-8.2) Albumin 2.8 g/dL (3.4-5.0) 2.9 g/dL (3.4-5.0) Albumin/Globulin Ratio 0.8 (1.0-1.7) 0.9 (1.0-1.7) Neutrophils (%) (Auto) 72 % (31-73) Lymphocytes (%) (Auto) 15 % (24-48) Monocytes (%) (Auto) 7 % (0-9) Eosinophils (%) (Auto) 6 % (0-3) Basophils (%) (Auto) 1 % (0-3) Neutrophils # (Auto) 6.3 x10^3/uL (1.8-7.7) Lymphocytes # (Auto) 1.3 x10^3/uL (1.0-4.8) Monocytes # (Auto) 0.6 x10^3/uL (0.0-1.1) Eosinophils # (Auto) 0.5 x10^3/uL (0.0-0.7) Basophils # (Auto) 0.1 x10^3/uL (0.0-0.2) Laboratory Tests Test 11/07/18 13:21 11/08/18 05:30 White Blood Count 8.8 x10^3/uL (4.0-11.0) 8.7 x10^3/uL (4.0-11.0) Red Blood Count 4.52 x10^6/uL (3.50-5.40) 4.59 x10^6/uL (3.50-5.40) Hemoglobin 13.2 g/dL (12.0-15.5) 13.4 g/dL (12.0-15.5) Hematocrit 39.2 % (36.0-47.0) 40.1 % (36.0-47.0) Mean Corpuscular Volume 87 fL (79-100) 88 fL (79-100) Mean Corpuscular Hemoglobin 29 pg (25-35) 29 pg (25-35) Mean Corpuscular Hemoglobin Concent 34 g/dL (31-37) 34 g/dL (31-37) Red Cell Distribution Width 15.0 % (11.5-14.5) 15.5 % (11.5-14.5) Platelet Count 361 x10^3/uL (140-400) 379 x10^3/uL (140-400) Sodium Level 139 mmol/L (136-145) 140 mmol/L (136-145) Potassium Level 4.4 mmol/L (3.5-5.1) 4.6 mmol/L (3.5-5.1) Chloride Level 106 mmol/L (98-107) 105 mmol/L (98-107) Carbon Dioxide Level 27 mmol/L (21-32) 28 mmol/L (21-32) Anion Gap 6 (6-14) 7 (6-14) Blood Urea Nitrogen 15 mg/dL (7-20) 17 mg/dL (7-20) Creatinine 0.8 mg/dL (0.6-1.0) 0.7 mg/dL (0.6-1.0) Estimated GFR (Cockcroft-Gault) 68.5 79.9 BUN/Creatinine Ratio 19 (6-20) 24 (6-20) Glucose Level 105 mg/dL (70-99) 94 mg/dL (70-99) Calcium Level 8.7 mg/dL (8.5-10.1) 8.8 mg/dL (8.5-10.1) Total Bilirubin 0.2 mg/dL (0.2-1.0) 0.2 mg/dL (0.2-1.0) Aspartate Amino Transf (AST/SGOT) 13 U/L (15-37) 18 U/L (15-37) Alanine Aminotransferase (ALT/SGPT) 14 U/L (14-59) 19 U/L (14-59) Alkaline Phosphatase 34 U/L (46-116) 35 U/L (46-116) Total Protein 6.5 g/dL (6.4-8.2) 6.2 g/dL (6.4-8.2) Albumin 2.8 g/dL (3.4-5.0) 2.9 g/dL (3.4-5.0) Albumin/Globulin Ratio 0.8 (1.0-1.7) 0.9 (1.0-1.7) Neutrophils (%) (Auto) 72 % (31-73) Lymphocytes (%) (Auto) 15 % (24-48) Monocytes (%) (Auto) 7 % (0-9) Eosinophils (%) (Auto) 6 % (0-3) Basophils (%) (Auto) 1 % (0-3) Neutrophils # (Auto) 6.3 x10^3/uL (1.8-7.7) Lymphocytes # (Auto) 1.3 x10^3/uL (1.0-4.8) Monocytes # (Auto) 0.6 x10^3/uL (0.0-1.1) Eosinophils # (Auto) 0.5 x10^3/uL (0.0-0.7) Basophils # (Auto) 0.1 x10^3/uL (0.0-0.2) Microbiology 11/02/18 Blood Culture - Final, Complete NO GROWTH AFTER 5 DAYS Medications Current Medications Sodium Chloride 1,000 ml @ 1,000 mls/hr Q1H IV Last administered on 11/02/18at 15:04; Start 11/02/18 at 14:39; Stop 11/02/18 at 15:38; Status DC Sodium Chloride 1,000 ml @ 100 mls/hr Q10H IV Last administered on 11/03/18at 16:19; Start 11/02/18 at 17:10; Stop 11/03/18 at 17:09; Status DC Ondansetron HCl (Zofran Odt) 4 mg PRN Q8HRS PRN PO NAUSEA/VOMITING Last administered on 11/05/18at 07:04; Start 11/02/18 at 18:00; Stop 11/05/18 at 11:24; Status DC Amlodipine Besylate (Norvasc) 5 mg DAILY PO Last administered on 11/07/18at 08:00; Start 11/03/18 at 09:00 Lactobacillus Rhamnosus (Culturelle) 1 cap BID PO Last administered on 11/07/18 at 21:04; Start 11/02/18 at 21:00 Loperamide HCl (Imodium) 2 mg PRN TID PRN PO DIARRHEA Last administered on 11/03/18at 06:11; Start 11/02/18 at 18:00; Stop 11/05/18 at 12:21; Status DC Meloxicam (Mobic) 7.5 mg DAILY PO Last administered on 11/07/18at 08:00; Start 11/03/18 at 09:00 Memantine (Namenda) 10 mg BID PO Last administered on 11/07/18at 21:04; Start 11/02/18 at 21:00 Non-Formulary Medication (Albuterol Sulfate (Proair Respiclick)) 2 puff PRN Q6HRS PRN IH SHORTNESS OF BREATH; Start 11/02/18 at 18:00; Stop 11/02/18 at 18:04; Status DC Calcium/Vitamin D (Oscal D 500mg/ 200uts) 1 tab BIDWMEALS PO Last administered on 11/07/18at 18:26; Start 11/03/18 at 08:00 Citalopram Hydrobromide (CeleXA) 40 mg DAILY PO Last administered on 11/07/18at 08:00; Start 11/03/18 at 09:00 Metronidazole 100 ml @ 100 mls/hr 1X ONCE IV Last administered on 11/02/18at 19:59; Start 11/02/18 at 18:00; Stop 11/02/18 at 18:59; Status DC Metronidazole (Flagyl) 500 mg Q8HRS PO Last administered on 11/04/18at 13:38; Start 11/02/18 at 22:00; Stop 11/04/18 at 14:23; Status DC Albuterol Sulfate (Ventolin Neb Soln) 2.5 mg PRN Q6HRS PRN NEB SHORTNESS OF BREATH; Start 11/02/18 at 18:15 Pharmacy Consult (C.diff Med Screen By Rx) 1 each 1X ONCE MC ; Start 11/02/18 at 19:45; Stop 11/02/18 at 19:46; Status UNV Lactobacillus Rhamnosus (Culturelle) 1 cap BID PO ; Start 11/02/18 at 21:00; Stop 11/02/18 at 20:09; Status DC Ibuprofen (Motrin) 600 mg PRN Q8HRS PRN PO PAIN Last administered on 11/04/18at 03:52; Start 11/04/18 at 03:30; Stop 11/06/18 at 08:39; Status DC Potassium Chloride (Klor-Con) 40 meq 1X ONCE PO Last administered on 11/04/18at 06:52; Start 11/04/18 at 06:45; Stop 11/04/18 at 06:46; Status DC Potassium Chloride (Klor-Con) 20 meq 1X PO ; Start 11/04/18 at 09:30; Stop 11/07/18 at 13:09; Status DC Potassium Chloride/Water 100 ml @ 100 mls/hr Q1H IV Last administered on 11/04/18at 15:41; Start 11/04/18 at 10:00; Stop 11/04/18 at 11:59; Status DC Magnesium Sulfate 100 ml @ 25 mls/hr 1X ONCE IV Last administered on 11/04/18at 18:05; Start 11/04/18 at 11:30; Stop 11/04/18 at 15:29; Status DC Ondansetron HCl (Zofran Odt) 4 mg PRN Q6HRS PRN PO NAUSEA/VOMITING Last administered on 11/07/18at 08:00; Start 11/05/18 at 11:30 Loperamide HCl (Imodium) 2 mg PRN Q15MIN PRN PO DIARRHEA; Start 11/05/18 at 11:30 Clonidine HCl (Catapres) 0.1 mg PRN Q1HR PRN PO HYPERTENSION; Start 11/05/18 at 11:30 Amino Acids/ Glycerin/ Electrolytes 1,000 ml @ 75 mls/hr [id number] IV Last administered on 11/07/18at 11:31; Start 11/05/18 at 13:15 Pantoprazole Sodium (PROTONIX VIAL for IV PUSH) 40 mg BIDAC IVP Last administered on 11/05/18at 17:15; Start 11/05/18 at 16:30; Stop 11/06/18 at 08:39; Status DC Barium Sulfate (Liquid E-Z Paque) 710 ml 1X ONCE PO ; Start 11/06/18 at 08:00; Stop 11/06/18 at 08:03; Status DC Barium Sulfate (E-Z-Hd) 340 gm 1X ONCE PO ; Start 11/06/18 at 08:00; Stop 11/06/18 at 08:03; Status DC Simethicone/ Sodium Bicarb/ Citric Ac (E-Z-Gas) 1 packet 1X ONCE PO ; Start 11/06/18 at 08:00; Stop 11/06/18 at 08:03; Status DC Iohexol (Omnipaque 300 Mg/ml) 400 ml 1X ONCE PO Last administered on 11/06/18at 08:56; Start 11/06/18 at 08:30; Stop 11/06/18 at 08:31; Status DC Info (CONTRAST GIVEN -- Rx MONITORING) 1 each PRN DAILY PRN MC SEE COMMENTS; Start 11/06/18 at 08:45; Stop 11/08/18 at 08:44; Status DC Pantoprazole Sodium (Protonix) 40 mg DAILYAC PO Last administered on 11/07/18at 08:00; Start 11/07/18 at 07:30 Multi-Ingredient Mouthwash/Gargle (Gi Cocktail) 20 ml PRN QID PRN PO abd pain; Start 11/07/18 at 09:15 Fentanyl Citrate (Fentanyl 2ml Vial) 25 mcg PRN Q5MIN PRN IV MILD PAIN 1-3; Start 11/08/18 at 07:00; Stop 11/09/18 at 06:59 Fentanyl Citrate (Fentanyl 2ml Vial) 50 mcg PRN Q5MIN PRN IV MODERATE TO SEVERE PAIN; Start 11/08/18 at 07:00; Stop 11/09/18 at 06:59 Morphine Sulfate (Morphine Sulfate) 1 mg PRN Q10MIN PRN IV SEVERE PAIN 7-10; Start 11/08/18 at 07:00; Stop 11/09/18 at 06:59 Ringer's Solution 1,000 ml @ 30 mls/hr Q24H IV Last administered on 11/08/18at 06:38; Start 11/08/18 at 07:00; Stop 11/08/18 at 18:59 Hydromorphone HCl (Dilaudid) 0.5 mg PRN Q10MIN PRN IV SEV PAIN, Second choice; Start 11/08/18 at 07:00; Stop 11/09/18 at 06:59 Prochlorperazine Edisylate (Compazine) 5 mg PACU PRN PRN IV NAUSEA, MRX1; Start 11/08/18 at 07:00; Stop 11/09/18 at 06:59 Active Scripts Active Prednisone 50 Mg Tablet 1 Tab PO DAILY Culturelle (Lactobacillus Rhamnosus Gg) 1 Each Cap.sprink 1 Cap PO BID 30 Days Amlodipine Besylate 5 Mg Tablet 5 Mg PO DAILY 30 Days Doxycycline Hyclate 100 Mg Tablet 100 Mg PO BID 5 Days Imodium A-D (Loperamide HCl) 2 Mg Capsule 2 Mg PO PRN TID PRN Reported Calcium + Vitamin D Tablet (Calcium Carbonate/Vitamin D3) 1 Each Tablet 1 Each PO BID Prolia (Denosumab) 60 Mg/1 Ml Disp.syrin 60 Mg SQ [id number] Memantine HCl 10 Mg Tablet 10 Mg PO BID Proair Respiclick (Albuterol Sulfate) 90 Mcg Aer.pow.ba 2 Puff IH PRN Q6HRS PRN Meloxicam 7.5 Mg Tablet 7.5 Mg PO DAILY Celexa (Citalopram Hydrobromide) 40 Mg Tablet 1 Tab PO DAILY Aricept (Donepezil Hcl) 10 Mg Tablet 1 Tab PO DAILY Vitals/I & O Vital Sign - Last 24 Hours 11/07/18 11/07/18 11/07/18 11/07/18 11:00 14:57 19:00 19:30 Temp 98.1 98.0 98.8 98.1 98.0 98.8 Pulse 72 76 79 Resp 18 16 18 B/P (MAP) 145/85 (105) 136/81 (99) 143/91 (108) Pulse Ox 97 96 92 O2 Delivery Room Air Room Air Room Air 11/07/18 11/08/18 11/08/18 23:00 03:00 07:00 Temp 98.2 98.0 97.9 98.2 98.0 97.9 Pulse 78 72 71 Resp 16 16 18 B/P (MAP) 144/94 (111) 142/88 (106) 138/90 (106) Pulse Ox 92 93 93 O2 Delivery Room Air Intake and Output 11/07/18 11/07/18 11/08/18 15:00 23:00 07:00 Intake Total 1000 ml 0 ml Output Total 500 ml 325 ml Balance 1000 ml -500 ml -325 ml Nutrition Consultation Dietary Evaluation: Recommendations by RD: Increase Calorie Intake, Protein supplementation Comments: ensure bid magic cup bid Expected Outcomes/Goals: to meet > 75% est nutr needs Interpretation of weight loss: >5% in 1 month Malnutrition Findings: Food and Nutrition Intake (Sev: <50% est energy req 5days Body Fat Depletion (Non Severe: Mild Depletion Weight Status: Underweight ELIZABETH JANE MD Nov 08, 2018 10:53
[2018-11-08 11:00] VITALS: BP 134/94
[2018-11-08] MEDS ORDERED: CONTRAST GIVEN. MC PRN (11:15)
[2018-11-08] MEDS ORDERED: IOHEXOL 350 MG/ML 100 ML VIAL. IV ONE (11:30)
[2018-11-08] MEDS ORDERED: IV RINGERS,LACTATED 1000ML 1,000 ML IV ONE (12:30)
[2018-11-08] MEDS ORDERED: PROPOFOL 40 ML IV ONE (13:12)
[2018-11-08] MEDS ORDERED: LIDOCAINE 2% PF 5 ML VIAL. ONE (13:13)
--- NOTE | 2018-11-08 13:34 | PDOC4 ---
Operative Note Operative Note EGD Meds propofol per anesthesia Pre-op dx nausea/vomiting post-op dx non-erosive gastritis Plan resume diet emesis secondary to esophageal dysmotility MAURA ENRIQUEZ MD Nov 08, 2018 13:34
[2018-11-08 15:00] VITALS: BP 147/93
[2018-11-08] MEDS: CITALOPRAM 20 MG TABLET. PO SCH (15:55)
[2018-11-08] MEDS: ONDANSETRON ODT 4 MG TAB.RAPDIS. PO PRN (15:56)
[2018-11-08] MEDS: MELOXICAM 7.5 MG TABLET PO SCH (15:56)
[2018-11-08] MEDS: amLODIPine BESYLATE 5 MG TABLET PO SCH (15:56)
[2018-11-08] MEDS: AMINO AC 3%/ELECTROLYTE/GLYCER 1,000 ML IV SCH (16:06)
[2018-11-08 19:00] VITALS: BP 119/83
[2018-11-08 23:00] VITALS: BP 153/91
[2018-11-09 03:00] VITALS: BP 155/87
[2018-11-09] MEDS: AMINO AC 3%/ELECTROLYTE/GLYCER 1,000 ML IV SCH ×2 (04:58→22:24)
[2018-11-09 07:00] VITALS: BP 152/89
[2018-11-09] MEDS: PANTOPRAZOLE 40 MG TABLET.DR. PO SCH ×2 (07:30→10:35)
--- NOTE | 2018-11-09 07:53 | RAD ---
Examination: KUB History: Assessment of the presence of barium. Nausea and vomiting. Persistent nausea and pain after eating. Comparison/Correlation: None Findings: Portable supine frontal view of the abdomen was obtained. Dextroconvex rotoscoliosis of the lumbar spine is present. Bowel gas pattern is normal. There is no contrast identified within bowel. No suspicious abdominal calcifications. Impression: No retained contrast within bowel. Electronically signed by: Yair Nevarez MD (11/09/2018 7:50 AM) [facility]
[2018-11-09] MEDS ORDERED: IOHEXOL 350 MG/ML 100 ML VIAL. IV ONE (08:30)
[2018-11-09] MEDS ORDERED: METOCLOPRAMIDE 5 MG TABLET. PO PRN (08:45)
--- NOTE | 2018-11-09 09:53 | NUR ---
Calcium carbonate on EMAR from yesterday. Non-administered and gave morning dose today.
[2018-11-09] MEDS: CALCIUM CARB/VIT D3 500/200 TABLET. PO SCH ×2 (09:56→16:13)
[2018-11-09] MEDS: LACTOBACILLUS RHAMNOSUS GG 1 CAPSULE. PO SCH ×2 (09:56→20:21)
[2018-11-09] MEDS: MELOXICAM 7.5 MG TABLET PO SCH (09:57)
[2018-11-09] MEDS: amLODIPine BESYLATE 5 MG TABLET PO SCH (09:57)
[2018-11-09] MEDS: CITALOPRAM 20 MG TABLET. PO SCH (09:57)
[2018-11-09] MEDS: MEMANTINE 10 MG TABLET. PO SCH ×2 (10:01→20:21)
--- NOTE | 2018-11-09 10:37 | PDOC ---
PROGRESS NOTES Chief Complaint Chief Complaint Mild ileus diarrhea - c diff neg NON EROISVE GASTRITIS ESIOPHAGELA DYSMOTILITY - s/p EGD 11/08 PERSISTENT nausea and vomiting after a meal GERD/dysmotility on imaging as above Dementia recent abx for tooth extraction Epigastric abdominal pain weakness and debility History of Present Illness History of Present Illness EGD results noted and explained to professional architect Seems like GI touched on a med that can help but risky to take in dementia pts - reglan? BUt professional architect wants to give it a try - while i explained risks (tics? if reglan) STill poor pO Does not want SNU Wants HH at existing [facility] (started to happen) Lytes ok, on day 4 maybe of procalamine I touched on marinol or megace, to help appetite - patient does not want CTA done to r.o mesenteric ischemia (fearful of eating though lacks pain ) - (with KUB prior to make sure all barium gone), she technically did not need this but has been done by the time i read the EGD results no emesis bec does not eat 98 lbs here, 9 lb weight loss since admit if scales are accurate? HAd recent c scope and mammo as routine screening - all ok per professional architect Plan; CPM, trial reglan with risks explained COnt Procal Ful code HH on dc with current [facility] family and RN at bedside time 30 Vitals Vitals Vital Signs Date Time Temp Pulse Resp B/P (MAP) Pulse Ox O2 Delivery O2 Flow Rate FiO2 11/09/18 09:57 85 152/89 11/09/18 07:00 97.7 17 97 Room Air 97.7 Physical Exam General: Alert, Cooperative, No acute distress, Other (not oriented) Heart: Regular rate, Normal S1 Lungs: Clear Abdomen: Normal bowel sounds, Soft, No tenderness, No hepatosplenomegaly Extremities: No clubbing, No edema, Normal pulses Skin: No rashes, No breakdown Review of Systems Review of Systems weak, poor po, nauseated all the time, no emesis Assessment and Plan Assessmemt and Plan Problems Medical Problems: (1) Dementia Status: Chronic (2) Diarrhea Status: Acute (3) Encephalopathy Status: Chronic (4) Gastroenteritis Status: Acute (5) Generalized weakness Status: Acute (6) Leukocytosis Status: Acute (7) Nausea and vomiting Status: Acute (8) Sepsis Status: Acute Comment Review of Relevant I have reviewed the following items donovan (where applicable) has been applied. Labs Laboratory Tests Test 11/07/18 13:21 11/08/18 05:30 White Blood Count 8.8 x10^3/uL (4.0-11.0) 8.7 x10^3/uL (4.0-11.0) Red Blood Count 4.52 x10^6/uL (3.50-5.40) 4.59 x10^6/uL (3.50-5.40) Hemoglobin 13.2 g/dL (12.0-15.5) 13.4 g/dL (12.0-15.5) Hematocrit 39.2 % (36.0-47.0) 40.1 % (36.0-47.0) Mean Corpuscular Volume 87 fL (79-100) 88 fL (79-100) Mean Corpuscular Hemoglobin 29 pg (25-35) 29 pg (25-35) Mean Corpuscular Hemoglobin Concent 34 g/dL (31-37) 34 g/dL (31-37) Red Cell Distribution Width 15.0 % (11.5-14.5) 15.5 % (11.5-14.5) Platelet Count 361 x10^3/uL (140-400) 379 x10^3/uL (140-400) Sodium Level 139 mmol/L (136-145) 140 mmol/L (136-145) Potassium Level 4.4 mmol/L (3.5-5.1) 4.6 mmol/L (3.5-5.1) Chloride Level 106 mmol/L (98-107) 105 mmol/L (98-107) Carbon Dioxide Level 27 mmol/L (21-32) 28 mmol/L (21-32) Anion Gap 6 (6-14) 7 (6-14) Blood Urea Nitrogen 15 mg/dL (7-20) 17 mg/dL (7-20) Creatinine 0.8 mg/dL (0.6-1.0) 0.7 mg/dL (0.6-1.0) Estimated GFR (Cockcroft-Gault) 68.5 79.9 BUN/Creatinine Ratio 19 (6-20) 24 (6-20) Glucose Level 105 mg/dL (70-99) 94 mg/dL (70-99) Calcium Level 8.7 mg/dL (8.5-10.1) 8.8 mg/dL (8.5-10.1) Total Bilirubin 0.2 mg/dL (0.2-1.0) 0.2 mg/dL (0.2-1.0) Aspartate Amino Transf (AST/SGOT) 13 U/L (15-37) 18 U/L (15-37) Alanine Aminotransferase (ALT/SGPT) 14 U/L (14-59) 19 U/L (14-59) Alkaline Phosphatase 34 U/L (46-116) 35 U/L (46-116) Total Protein 6.5 g/dL (6.4-8.2) 6.2 g/dL (6.4-8.2) Albumin 2.8 g/dL (3.4-5.0) 2.9 g/dL (3.4-5.0) Albumin/Globulin Ratio 0.8 (1.0-1.7) 0.9 (1.0-1.7) Neutrophils (%) (Auto) 72 % (31-73) Lymphocytes (%) (Auto) 15 % (24-48) Monocytes (%) (Auto) 7 % (0-9) Eosinophils (%) (Auto) 6 % (0-3) Basophils (%) (Auto) 1 % (0-3) Neutrophils # (Auto) 6.3 x10^3/uL (1.8-7.7) Lymphocytes # (Auto) 1.3 x10^3/uL (1.0-4.8) Monocytes # (Auto) 0.6 x10^3/uL (0.0-1.1) Eosinophils # (Auto) 0.5 x10^3/uL (0.0-0.7) Basophils # (Auto) 0.1 x10^3/uL (0.0-0.2) Microbiology 11/02/18 Blood Culture - Final, Complete NO GROWTH AFTER 5 DAYS Medications Current Medications Sodium Chloride 1,000 ml @ 1,000 mls/hr Q1H IV Last administered on 11/02/18at 15:04; Start 11/02/18 at 14:39; Stop 11/02/18 at 15:38; Status DC Sodium Chloride 1,000 ml @ 100 mls/hr Q10H IV Last administered on 11/03/18 16:19; Start 11/02/18 at 17:10; Stop 11/03/18 at 17:09; Status DC Ondansetron HCl (Zofran Odt) 4 mg PRN Q8HRS PRN PO NAUSEA/VOMITING Last administered on 11/05/18 07:04; Start 11/02/18 at 18:00; Stop 11/05/18 at 11:24; Status DC Amlodipine Besylate (Norvasc) 5 mg DAILY PO Last administered on 11/09/18 09:57; Start 11/03/18 at 09:00 Lactobacillus Rhamnosus (Culturelle) 1 cap BID PO Last administered on 10/28 09:57; Start 11/02/18 at 21:00 Loperamide HCl (Imodium) 2 mg PRN TID PRN PO DIARRHEA Last administered on 11/03/18 06:11; Start 11/02/18 at 18:00; Stop 11/05/18 at 12:21; Status DC Meloxicam (Mobic) 7.5 mg DAILY PO Last administered on 11/09/18 09:57; Start 11/03/18 at 09:00 Memantine (Namenda) 10 mg BID PO Last administered on 11/09/18 10:01; Start 11/02/18 at 21:00 Non-Formulary Medication (Albuterol Sulfate (Proair Respiclick)) 2 puff PRN Q6HRS PRN IH SHORTNESS OF BREATH; Start 11/02/18 at 18:00; Stop 11/02/18 at 18:04; Status DC Calcium/Vitamin D (Oscal D 500mg/ 200uts) 1 tab BIDWMEALS PO Last administered on 11/09/18 09:57; Start 11/03/18 at 08:00 Citalopram Hydrobromide (CeleXA) 40 mg DAILY PO Last administered on 11/09/18 09:57; Start 11/03/18 at 09:00 Metronidazole 100 ml @ 100 mls/hr 1X ONCE IV Last administered on 11/02/18 19:59; Start 11/02/18 at 18:00; Stop 11/02/18 at 18:59; Status DC Metronidazole (Flagyl) 500 mg Q8HRS PO Last administered on 11/04/18at 13:38; Start 11/02/18 at 22:00; Stop 11/04/18 at 14:23; Status DC Albuterol Sulfate (Ventolin Neb Soln) 2.5 mg PRN Q6HRS PRN NEB SHORTNESS OF BREATH; Start 11/02/18 at 18:15 Pharmacy Consult (C.diff Med Screen By Rx) 1 each 1X ONCE MC ; Start 11/02/18 at 19:45; Stop 11/02/18 at 19:46; Status UNV Lactobacillus Rhamnosus (Culturelle) 1 cap BID PO ; Start 11/02/18 at 21:00; Stop 11/02/18 at 20:09; Status DC Ibuprofen (Motrin) 600 mg PRN Q8HRS PRN PO PAIN Last administered on 11/04/18at 03:52; Start 11/04/18 at 03:30; Stop 11/06/18 at 08:39; Status DC Potassium Chloride (Klor-Con) 40 meq 1X ONCE PO Last administered on 11/04/18at 06:52; Start 11/04/18 at 06:45; Stop 11/04/18 at 06:46; Status DC Potassium Chloride (Klor-Con) 20 meq 1X PO ; Start 11/04/18 at 09:30; Stop 11/07/18 at 13:09; Status DC Potassium Chloride/Water 100 ml @ 100 mls/hr Q1H IV Last administered on 11/04/18at 15:41; Start 11/04/18 at 10:00; Stop 11/04/18 at 11:59; Status DC Magnesium Sulfate 100 ml @ 25 mls/hr 1X ONCE IV Last administered on 11/04/18at 18:05; Start 11/04/18 at 11:30; Stop 11/04/18 at 15:29; Status DC Ondansetron HCl (Zofran Odt) 4 mg PRN Q6HRS PRN PO NAUSEA/VOMITING Last administered on 11/08/18at 15:56; Start 11/05/18 at 11:30 Loperamide HCl (Imodium) 2 mg PRN Q15MIN PRN PO DIARRHEA; Start 11/05/18 at 11:30 Clonidine HCl (Catapres) 0.1 mg PRN Q1HR PRN PO HYPERTENSION; Start 11/05/18 at 11:30 Amino Acids/ Glycerin/ Electrolytes 1,000 ml @ 75 mls/hr [id number] IV Last administered on 11/09/18at 04:58; Start 11/05/18 at 13:15 Pantoprazole Sodium (PROTONIX VIAL for IV PUSH) 40 mg BIDAC IVP Last administered on 11/05/18at 17:15; Start 11/05/18 at 16:30; Stop 11/06/18 at 08:39; Status DC Barium Sulfate (Liquid E-Z Paque) 710 ml 1X ONCE PO ; Start 11/06/18 at 08:00; Stop 11/06/18 at 08:03; Status DC Barium Sulfate (E-Z-Hd) 340 gm 1X ONCE PO ; Start 11/06/18 at 08:00; Stop 11/06/18 at 08:03; Status DC Simethicone/ Sodium Bicarb/ Citric Ac (E-Z-Gas) 1 packet 1X ONCE PO ; Start 11/06/18 at 08:00; Stop 11/06/18 at 08:03; Status DC Iohexol (Omnipaque 300 Mg/ml) 400 ml 1X ONCE PO Last administered on 11/06/18at 08:56; Start 11/06/18 at 08:30; Stop 11/06/18 at 08:31; Status DC Info (CONTRAST GIVEN -- Rx MONITORING) 1 each PRN DAILY PRN MC SEE COMMENTS; Start 11/06/18 at 08:45; Stop 11/08/18 at 08:44; Status DC Pantoprazole Sodium (Protonix) 40 mg DAILYAC PO Last administered on 11/07/18at 08:00; Start 11/07/18 at 07:30 Multi-Ingredient Mouthwash/Gargle (Gi Cocktail) 20 ml PRN QID PRN PO abd pain; Start 11/07/18 at 09:15 Fentanyl Citrate (Fentanyl 2ml Vial) 25 mcg PRN Q5MIN PRN IV MILD PAIN 1-3; Start 11/08/18 at 07:00; Stop 11/09/18 at 06:59; Status DC Fentanyl Citrate (Fentanyl 2ml Vial) 50 mcg PRN Q5MIN PRN IV MODERATE TO SEVERE PAIN; Start 11/08/18 at 07:00; Stop 11/09/18 at 06:59; Status DC Morphine Sulfate (Morphine Sulfate) 1 mg PRN Q10MIN PRN IV SEVERE PAIN 7-10; Start 11/08/18 at 07:00; Stop 11/09/18 at 06:59; Status DC Ringer's Solution 1,000 ml @ 30 mls/hr Q24H IV Last administered on 11/08/18at 06:38; Start 11/08/18 at 07:00; Stop 11/08/18 at 18:59; Status DC Hydromorphone HCl (Dilaudid) 0.5 mg PRN Q10MIN PRN IV SEV PAIN, Second choice; Start 11/08/18 at 07:00; Stop 11/09/18 at 06:59; Status DC Prochlorperazine Edisylate (Compazine) 5 mg PACU PRN PRN IV NAUSEA, MRX1; Start 11/08/18 at 07:00; Stop 11/09/18 at 06:59; Status DC Iohexol (Omnipaque 350 Mg/ml) 90 ml 1X ONCE IV Last administered on 11/09/18at 08:48; Start 11/08/18 at 11:30; Stop 11/08/18 at 11:31; Status DC Info (CONTRAST GIVEN -- Rx MONITORING) 1 each PRN DAILY PRN MC SEE COMMENTS; Start 11/08/18 at 11:15; Stop 11/10/18 at 11:14 Ringer's Solution 1,000 ml @ 75 mls/hr 1X ONCE IV Last administered on 11/08/18at 12:35; Start 11/08/18 at 12:30; Stop 11/09/18 at 01:49; Status DC Propofol 40 ml @ As Directed STK-MED ONCE IV ; Start 11/08/18 at 13:12; Stop 11/08/18 at 13:13; Status DC Lidocaine HCl (Lidocaine Pf 2% Vial) 5 ml STK-MED ONCE .ROUTE ; Start 11/08/18 at 13:13; Stop 11/08/18 at 13:13; Status DC Iohexol (Omnipaque 350 Mg/ml) 90 ml 1X ONCE IV ; Start 11/09/18 at 08:30; Stop 11/09/18 at 08:31; Status DC Metoclopramide HCl (Reglan) 5 mg PRN BFRMEALHC PRN PO NAUSEA/VOMITING; Start 11/09/18 at 08:45 Active Scripts Active Prednisone 50 Mg Tablet 1 Tab PO DAILY Culturelle (Lactobacillus Rhamnosus Gg) 1 Each Cap.sprink 1 Cap PO BID 30 Days Amlodipine Besylate 5 Mg Tablet 5 Mg PO DAILY 30 Days Doxycycline Hyclate 100 Mg Tablet 100 Mg PO BID 5 Days Imodium A-D (Loperamide HCl) 2 Mg Capsule 2 Mg PO PRN TID PRN Reported Calcium + Vitamin D Tablet (Calcium Carbonate/Vitamin D3) 1 Each Tablet 1 Each PO BID Prolia (Denosumab) 60 Mg/1 Ml Disp.syrin 60 Mg SQ [id number] Memantine HCl 10 Mg Tablet 10 Mg PO BID Proair Respiclick (Albuterol Sulfate) 90 Mcg Aer.pow.ba 2 Puff IH PRN Q6HRS PRN Meloxicam 7.5 Mg Tablet 7.5 Mg PO DAILY Celexa (Citalopram Hydrobromide) 40 Mg Tablet 1 Tab PO DAILY Aricept (Donepezil Hcl) 10 Mg Tablet 1 Tab PO DAILY Vitals/I & O Vital Sign - Last 24 Hours 11/08/18 11/08/18 11/08/18 11/08/18 11:00 12:29 12:31 13:35 Temp 98.0 98.7 97 98.0 98.7 97.0 Pulse 80 71 68 Resp 16 B/P (MAP) 134/94 (107) 115/64 Pulse Ox 96 92 97 O2 Delivery Room Air Room Air Room Air 11/08/18 11/08/18 11/08/18 11/08/18 13:50 14:05 15:00 15:56 Temp 97.0 98.1 97.0 98.1 Pulse 67 65 70 70 Resp B/P (MAP) 151/69 150/68 147/93 (111) 147/93 Pulse Ox 96 96 97 O2 Delivery Room Air Room Air Room Air 11/08/18 11/08/18 11/08/18 11/09/18 19:00 20:00 23:00 03:00 Temp 98.3 98.0 98.0 98.3 98.0 98.0 Pulse 72 75 78 Resp B/P (MAP) 119/83 (95) 153/91 (111) 155/87 (109) Pulse Ox 92 93 92 O2 Delivery Room Air Room Air Room Air Room Air 11/09/18 11/09/18 07:00 09:57 Temp 97.7 97.7 Pulse 85 85 Resp 17 B/P (MAP) 152/89 (110) 152/89 Pulse Ox 97 O2 Delivery Room Air Intake and Output 11/08/18 11/08/18 11/09/18 14:59 22:59 06:59 Intake Total 1000 ml Balance 1000 ml Nutrition Consultation Dietary Evaluation: Recommendations by RD: Increase Calorie Intake, Protein supplementation, PPN/TPN Comments: REC continue PPN at this time REc ensure bid and magic cup bid when diet resumes Expected Outcomes/Goals: to meet > 75% est nutr needs via po intake - goal ongoing Interpretation of weight loss: >5% in 1 month Malnutrition Findings: Food and Nutrition Intake (Sev: <50% est energy req 5days Body Fat Depletion (Non Severe: Mild Depletion Weight Status: Underweight ELIZABETH JNAE MD Nov 09, 2018 10:37
[2018-11-09 11:00] VITALS: BP 142/88
--- NOTE | 2018-11-09 12:04 | PDOC ---
Subjective: Subjective: Not hungry, might try lunch though. Sister present. Objective: Objective: Per nurse - not eating much due to fear of nausea, no vomiting, hasn't seen any diarrhea today. Reviewed chart - started on PRN Reglan per Dr. Caldwell. Also on PPN. Vital Signs: Vital Signs Date Time Temp Pulse Resp B/P (MAP) Pulse Ox O2 Delivery O2 Flow Rate FiO2 11/09/18 09:57 85 152/89 11/09/18 08:00 Room Air 11/09/18 07:00 97.7 17 97 97.7 Labs: BLOOD CULTURE Final NO GROWTH AFTER 5 DAYS Imaging: EGD 11/08 non-erosive gastritis KUB 11/09 Impression: No retained contrast within bowel. PE: GEN: NAD LUNGS: CTAB HEART: RRR ABD: NABS, S/ND/NT NEURO/PSYCH: forgetful A/P: Nausea/anorexia GERD/dysmotility Dementia -- CT angio per primary today - reportedly done this morning, no results in [facility]. Note orders for Reglan as well. Continue PPI, encouraged PO, DC per primary. ADRIENNE TIWARI Nov 09, 2018 12:04
[2018-11-09 15:00] VITALS: BP 142/87
--- NOTE | 2018-11-09 16:01 | RAD ---
Examination: CT ANGIOGRAPHY ABDOMEN History: Fear of eating, persistent nausea Comparison/Correlation: 06/06/2016 CT abdomen and pelvis with contrast Findings: Axial images of the abdomen were obtained following IV contrast according to arteriography protocol. Coronal and coronal reformatted images were provided. 3-D volume rendered and MIP images were provided. Visualized lung bases are clear. Small hiatal hernia is present. Reflux of contrast into hepatic veins is noted. This raises question of right heart insufficiency. Within left hepatic lobe segment 2, there is a 0.9 cm diameter low-attenuation lesion which has remained stable. Subcapsular segment 4A lesion also is present and stable. These probably represent cysts. Spleen, pancreas, and kidneys are unremarkable. Bilateral adrenal gland hyperplasia is similar to prior exam. Gallbladder fossa is unremarkable. At least 80 percent stenosis of the celiac artery at its origin is evident. Superior mesenteric artery is unremarkable. Approximately 50 percent stenosis of the inferior mesenteric artery at its origin is noted. Distal branches of these vessels are unremarkable. Significant atheromatous involvement of the right main renal artery approximately 1 cm diameter distal to the origin is evident. Stenosis of approximately 75 percent is evident. Atheromatous plaque is notable distal to the main renal artery origin. Beyond the region of stenosis, poststenotic dilatation is evident. No other stenoses are delineated. No significant left renal arterial stenosis. Tortuosity of the abdominal aorta is noted. Plaque at the infrarenal abdominal aorta is noted. Scattered atherosclerotic calcific plaque of the distal abdominal aorta is noted. Scattered atherosclerotic calcific plaque of the common iliac arteries and proximal internal as well as proximal external iliac arteries is notable. No ascites. No enlarged abdominal lymph nodes. No bowel obstruction visualized. No findings of acute ischemia involving visualized bowel. The lower pelvic level of bowel is not included for purposes of this exam. 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 Small hiatal hernia. Electronically signed by: Yair Nevarez MD (11/09/2018 3:58 PM) [facility]
[2018-11-09 19:00] VITALS: BP 157/80
[2018-11-09 23:00] VITALS: BP 135/84
[2018-11-10 03:00] VITALS: BP 143/80
[2018-11-10 07:00] VITALS: BP 122/86
[2018-11-10] MEDS: CALCIUM CARB/VIT D3 500/200 TABLET. PO SCH ×2 (08:34→17:15)
[2018-11-10] MEDS: CITALOPRAM 20 MG TABLET. PO SCH (08:34)
[2018-11-10] MEDS: MEMANTINE 10 MG TABLET. PO SCH ×2 (08:34→20:40)
[2018-11-10] MEDS: amLODIPine BESYLATE 5 MG TABLET PO SCH (08:35)
[2018-11-10] MEDS: PANTOPRAZOLE 40 MG TABLET.DR. PO SCH (08:35)
[2018-11-10] MEDS: LACTOBACILLUS RHAMNOSUS GG 1 CAPSULE. PO SCH ×2 (08:35→20:40)
[2018-11-10] MEDS: MELOXICAM 7.5 MG TABLET PO SCH (08:35)
--- NOTE | 2018-11-10 10:16 | PDOC ---
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 BUt marketing research intern wants to give it a try - while i explained risks (tics? if reglan) Lytes ok, maintained on procalamine I touched on marinol or megace, to help appetite - patient does not want no more diarrhea 98 lbs now, admitted at 108 lbs Plan; COnsult IR re celiac artery stenosis plus "afraid of eating" Consult cards re rt renal artery stenosis - systolic BP 140s - not bad at all CPM, trial reglan with risks explained COnt Procal re insert IV line for procalamine Full code HH on dc with current [place] Dw family and RN at bedside time 30 Vitals Vitals Vital Signs Date Time Temp Pulse Resp B/P (MAP) Pulse Ox O2 Delivery O2 Flow Rate FiO2 11/10/18 08:35 73 122/86 11/10/18 07:00 98.7 18 91 Room Air 98.7 Physical Exam General: Alert, Cooperative, No acute distress, Other (not oriented) Heart: Regular rate, Normal S1 Lungs: Clear Abdomen: Normal bowel sounds, Soft, No tenderness, No hepatosplenomegaly Extremities: No clubbing, No edema, Normal pulses Skin: No rashes, No breakdown Review of Systems Review of Systems poor po, nausea, weak, no cp, no fevers, no diarrhea, no si, neg 14 pt Assessment and Plan Assessmemt and Plan Problems Medical Problems: (1) Dementia Status: Chronic (2) Diarrhea Status: Acute (3) Encephalopathy Status: Chronic (4) Gastroenteritis Status: Acute (5) Generalized weakness Status: Acute (6) Leukocytosis Status: Acute (7) Nausea and vomiting Status: Acute (8) Sepsis Status: Acute Comment Review of Relevant I have reviewed the following items donovan (where applicable) has been applied. Labs Microbiology 11/02/18 Blood Culture - Final, Complete NO GROWTH AFTER 5 DAYS Medications Current Medications Sodium Chloride 1,000 ml @ 1,000 mls/hr Q1H IV Last administered on 11/02/18at 1 5:04; Start 11/02/18 at 14:39; Stop 11/02/18 at 15:38; Status DC Sodium Chloride 1,000 ml @ 100 mls/hr Q10H IV Last administered on 11/03/18at 16:19; Start 11/02/18 at 17:10; Stop 11/03/18 at 17:09; Status DC Ondansetron HCl (Zofran Odt) 4 mg PRN Q8HRS PRN PO NAUSEA/VOMITING Last administered on 11/05/18 07:04; Start 11/02/18 at 18:00; Stop 11/05/18 at 11:24; Status DC Amlodipine Besylate (Norvasc) 5 mg DAILY PO Last administered on 11/10/18 08:35; Start 11/03/18 at 09:00 Lactobacillus Rhamnosus (Culturelle) 1 cap BID PO Last administered on 11/10/18 08:35; Start 11/02/18 at 21:00 Loperamide HCl (Imodium) 2 mg PRN TID PRN PO DIARRHEA Last administered on 11/03/18 06:11; Start 11/02/18 at 18:00; Stop 11/05/18 at 12:21; Status DC Meloxicam (Mobic) 7.5 mg DAILY PO Last administered on 11/10/18 08:35; Start 11/03/18 at 09:00 Memantine (Namenda) 10 mg BID PO Last administered on 11/10/18 08:35; Start 11/02/18 at 21:00 Non-Formulary Medication (Albuterol Sulfate (Proair Respiclick)) 2 puff PRN Q6HRS PRN IH SHORTNESS OF BREATH; Start 11/02/18 at 18:00; Stop 11/02/18 at 18:04; Status DC Calcium/Vitamin D (Oscal D 500mg/ 200uts) 1 tab BIDWMEALS PO Last administered on 9/14/19at 08:35; Start 11/03/18 at 08:00 Citalopram Hydrobromide (CeleXA) 40 mg DAILY PO Last administered on 11/10/18at 08:35; Start 11/03/18 at 09:00 Metronidazole 100 ml @ 100 mls/hr 1X ONCE IV Last administered on 11/02/18at 19:59; Start 11/02/18 at 18:00; Stop 11/02/18 at 18:59; Status DC Metronidazole (Flagyl) 500 mg Q8HRS PO Last administered on 11/04/18at 13:38; Start 11/02/18 at 22:00; Stop 11/04/18 at 14:23; Status DC Albuterol Sulfate (Ventolin Neb Soln) 2.5 mg PRN Q6HRS PRN NEB SHORTNESS OF BREATH; Start 11/02/18 at 18:15 Pharmacy Consult (C.diff Med Screen By Rx) 1 each 1X ONCE MC ; Start 11/02/18 at 19:45; Stop 11/02/18 at 19:46; Status UNV Lactobacillus Rhamnosus (Culturelle) 1 cap BID PO ; Start 11/02/18 at 21:00; Sto p 11/02/18 at 20:09; Status DC Ibuprofen (Motrin) 600 mg PRN Q8HRS PRN PO PAIN Last administered on 11/04/18at 03:52; Start 11/04/18 at 03:30; Stop 11/06/18 at 08:39; Status DC Potassium Chloride (Klor-Con) 40 meq 1X ONCE PO Last administered on 11/04/18at 06:52; Start 11/04/18 at 06:45; Stop 11/04/18 at 06:46; Status DC Potassium Chloride (Klor-Con) 20 meq 1X PO ; Start 11/04/18 at 09:30; Stop 11/07/18 at 13:09; Status DC Potassium Chloride/Water 100 ml @ 100 mls/hr Q1H IV Last administered on 11/04/18at 15:41; Start 11/04/18 at 10:00; Stop 11/04/18 at 11:59; Status DC Magnesium Sulfate 100 ml @ 25 mls/hr 1X ONCE IV Last administered on 11/04/18at 18:05; Start 11/04/18 at 11:30; Stop 11/04/18 at 15:29; Status DC Ondansetron HCl (Zofran Odt) 4 mg PRN Q6HRS PRN PO NAUSEA/VOMITING Last administered on 11/08/18at 15:56; Start 11/05/18 at 11:30 Loperamide HCl (Imodium) 2 mg PRN Q15MIN PRN PO DIARRHEA; Start 11/05/18 at 11:30 Clonidine HCl (Catapres) 0.1 mg PRN Q1HR PRN PO HYPERTENSION; Start 11/05/18 at 11:30 Amino Acids/ Glycerin/ Electrolytes 1,000 ml @ 75 mls/hr [id number] IV Last administered on 11/09/18at 22:24; Start 11/05/18 at 13:15 Pantoprazole Sodium (PROTONIX VIAL for IV PUSH) 40 mg BIDAC IVP Last administered on 11/05/18at 17:15; Start 11/05/18 at 16:30; Stop 11/06/18 at 08:39; Status DC Barium Sulfate (Liquid E-Z Paque) 710 ml 1X ONCE PO ; Start 11/06/18 at 08:00; Stop 11/06/18 at 08:03; Status DC Barium Sulfate (E-Z-Hd) 340 gm 1X ONCE PO ; Start 11/06/18 at 08:00; Stop 11/06/18 at 08:03; Status DC Simethicone/ Sodium Bicarb/ Citric Ac (E-Z-Gas) 1 packet 1X ONCE PO ; Start 11/06/18 at 08:00; Stop 11/06/18 at 08:03; Status DC Iohexol (Omnipaque 300 Mg/ml) 400 ml 1X ONCE PO Last administered on 11/06/18at 08:56; Start 11/06/18 at 08:30; Stop 11/06/18 at 08:31; Status DC Info (CONTRAST GIVEN -- Rx MONITORING) 1 each PRN DAILY PRN MC SEE COMMENTS; Start 11/06/18 at 08:45; Stop 11/08/18 at 08:44; Status DC Pantoprazole Sodium (Protonix) 40 mg DAILYAC PO Last administered on 11/10/18at 08:35; Start 11/07/18 at 07:30 Multi-Ingredient Mouthwash/Gargle (Gi Cocktail) 20 ml PRN QID PRN PO abd pain; Start 11/07/18 at 09:15 Fentanyl Citrate (Fentanyl 2ml Vial) 25 mcg PRN Q5MIN PRN IV MILD PAIN 1-3; Start 11/08/18 at 07:00; Stop 11/09/18 at 06:59; Status DC Fentanyl Citrate (Fentanyl 2ml Vial) 50 mcg PRN Q5MIN PRN IV MODERATE TO SEVERE PAIN; Start 11/08/18 at 07:00; Stop 11/09/18 at 06:59; Status DC Morphine Sulfate (Morphine Sulfate) 1 mg PRN Q10MIN PRN IV SEVERE PAIN 7-10; Start 11/08/18 at 07:00; Stop 11/09/18 at 06:59; Status DC Ringer's Solution 1,000 ml @ 30 mls/hr Q24H IV Last administered on 11/08/18at 06:38; Start 11/08/18 at 07:00; Stop 11/08/18 at 18:59; Status DC Hydromorphone HCl (Dilaudid) 0.5 mg PRN Q10MIN PRN IV SEV PAIN, Second choice; Start 11/08/18 at 07:00; Stop 11/09/18 at 06:59; Status DC Prochlorperazine Edisylate (Compazine) 5 mg PACU PRN PRN IV NAUSEA, MRX1; Start 11/08/18 at 07:00; Stop 11/09/18 at 06:59; Status DC Iohexol (Omnipaque 350 Mg/ml) 90 ml 1X ONCE IV Last administered on 11/09/18at 08:48; Start 11/08/18 at 11:30; Stop 11/08/18 at 11:31; Status DC Info (CONTRAST GIVEN -- Rx MONITORING) 1 each PRN DAILY PRN MC SEE COMMENTS; Start 11/08/18 at 11:15; Stop 11/10/18 at 11:14 Ringer's Solution 1,000 ml @ 75 mls/hr 1X ONCE IV Last administered on 11/08/18at 12:35; Start 11/08/18 at 12:30; Stop 11/09/18 at 01:49; Status DC Propofol 40 ml @ As Directed STK-MED ONCE IV ; Start 11/08/18 at 13:12; Stop 11/08/18 at 13:13; Status DC Lidocaine HCl (Lidocaine Pf 2% Vial) 5 ml STK-MED ONCE .ROUTE ; Start 11/08/18 at 13:13; Stop 11/08/18 at 13:13; Status DC Iohexol (Omnipaque 350 Mg/ml) 90 ml 1X ONCE IV ; Start 11/09/18 at 08:30; Stop 11/09/18 at 08:31; Status DC Metoclopramide HCl (Reglan) 5 mg PRN BFRMEALHC PRN PO NAUSEA/VOMITING; Start 11/09/18 at 08:45 Active Scripts Active Prednisone 50 Mg Tablet 1 Tab PO DAILY Culturelle (Lactobacillus Rhamnosus Gg) 1 Each Cap.sprink 1 Cap PO BID 30 Days Amlodipine Besylate 5 Mg Tablet 5 Mg PO DAILY 30 Days Doxycycline Hyclate 100 Mg Tablet 100 Mg PO BID 5 Days Imodium A-D (Loperamide HCl) 2 Mg Capsule 2 Mg PO PRN TID PRN Reported Calcium + Vitamin D Tablet (Calcium Carbonate/Vitamin D3) 1 Each Tablet 1 Each PO BID Prolia (Denosumab) 60 Mg/1 Ml Disp.syrin 60 Mg SQ [id number] Memantine HCl 10 Mg Tablet 10 Mg PO BID Proair Respiclick (Albuterol Sulfate) 90 Mcg Aer.pow.ba 2 Puff IH PRN Q6HRS PRN Meloxicam 7.5 Mg Tablet 7.5 Mg PO DAILY Celexa (Citalopram Hydrobromide) 40 Mg Tablet 1 Tab PO DAILY Aricept (Donepezil Hcl) 10 Mg Tablet 1 Tab PO DAILY Vitals/I & O Vital Sign - Last 24 Hours 11/09/18 11/09/18 11/09/18 11/09/18 11:00 15:00 19:00 20:00 Temp 97.9 97.9 97.8 97.9 97.9 97.8 Pulse 70 77 71 Resp 18 18 18 B/P (MAP) 142/88 (106) 142/87 (105) 157/80 (105) Pulse Ox 98 98 92 O2 Delivery Room Air Room Air Room Air Room Air 11/09/18 11/10/18 11/10/18 11/10/18 23:00 03:00 07:00 08:35 Temp 97.8 97.9 98.7 97.8 97.9 98.7 Pulse 68 73 73 73 Resp 18 18 18 B/P (MAP) 135/84 (101) 143/80 (101) 122/86 (98) 122/86 Pulse Ox 93 94 91 O2 Delivery Room Air Room Air Room Air Intake and Output 11/09/18 11/09/18 11/10/18 14:59 22:59 06:59 Intake Total 1300 ml 0 ml Balance 1300 ml 0 ml Nutrition Consultation Dietary Evaluation: Recommendations by RD: Increase Calorie Intake, Protein supplementation, PPN/TPN Comments: REC continue PPN at this time REc ensure bid and magic cup bid when diet resumes Expected Outcomes/Goals: to meet > 75% est nutr needs via po intake - goal ongoing Interpretation of weight loss: >5% in 1 month Malnutrition Findings: Food and Nutrition Intake (Sev: <50% est energy req 5days Body Fat Depletion (Non Severe: Mild Depletion Weight Status: Underweight ELIZABETH JANE MD Nov 10, 2018 10:16
[2018-11-10 11:00] VITALS: BP 169/92
--- NOTE | 2018-11-10 12:28 | PDOC2 ---
CONSULT Date of Consult Date of Consult DATE: 11/10/18 TIME: 12:28 Reason for Consult Reason for Consult: Renal artery stenosis Referring Physician Referring Physician: Dr. Caldwell Identification/Chief Complaint Chief Complaint Diarrhea and abdominal pain Source Source: Chart review, Patient History of Present Illness Reason for Visit: 83-year-old female resident of assisted living facility presented with diarrhea, abdominal pain, nausea, vomiting and loss of appetite. Workup revealed nonerosive gastritis and esophageal dysmotility. CT of the abdomen showed 80% celiac artery stenosis and 75% right renal artery stenosis and hence we were consulted. Patient denied any symptoms of postprandial angina. She denied any chest pain, orthopnea/PND or syncope. Past Medical History Cardiovascular: HTN, Hyperlipidemia Pulmonary: No pertinent hx GI: No pertinent hx Heme/Onc: No pertinent hx Hepatobiliary: No pertinent hx Psych: No pertinent hx, Depression Rheumatologic: No pertinent hx Infectious disease: No pertinent hx Renal/: No pertinent hx Endocrine: Osteoporosis Past Surgical History Past Surgical History: Other Family History Family History: No Significant Social History No ALCOHOL: none Drugs: None Current Problem List Problem List Problems Medical Problems: (1) Dementia Status: Chronic (2) Diarrhea Status: Acute (3) Encephalopathy Status: Chronic (4) Gastroenteritis Status: Acute (5) Generalized weakness Status: Acute (6) Leukocytosis Status: Acute (7) Nausea and vomiting Status: Acute (8) Sepsis Status: Acute Current Medications Current Medications Current Medications Sodium Chloride 1,000 ml @ 1,000 mls/hr Q1H IV Last administered on 11/02/18at 15:04; Start 11/02/18 at 14:39; Stop 11/02/18 at 15:38; Status DC Sodium Chloride 1,000 ml @ 100 mls/hr Q10H IV Last administered on 11/03/18at 16:19; Start 11/02/18 at 17:10; Stop 11/03/18 at 17:09; Status DC Ondansetron HCl (Zofran Odt) 4 mg PRN Q8HRS PRN PO NAUSEA/VOMITING Last administered on 11/05/18at 07:04; Start 11/02/18 at 18:00; Stop 11/05/18 at 11:24; Status DC Amlodipine Besylate (Norvasc) 5 mg DAILY PO Last administered on 11/10/18at 08:35; Start 11/03/18 at 09:00 Lactobacillus Rhamnosus (Culturelle) 1 cap BID PO Last administered on 11/10/18 08:35; Start 11/02/18 at 21:00 Loperamide HCl (Imodium) 2 mg PRN TID PRN PO DIARRHEA Last administered on 11/03/18 06:11; Start 11/02/18 at 18:00; Stop 11/05/18 at 12:21; Status DC Meloxicam (Mobic) 7.5 mg DAILY PO Last administered on 11/10/18 08:35; Start 11/03/18 at 09:00 Memantine (Namenda) 10 mg BID PO Last administered on 11/10/18 08:35; Start 11/02/18 at 21:00 Non-Formulary Medication (Albuterol Sulfate (Proair Respiclick)) 2 puff PRN Q6HRS PRN IH SHORTNESS OF BREATH; Start 11/02/18 at 18:00; Stop 11/02/18 at 18:04; Status DC Calcium/Vitamin D (Oscal D 500mg/ 200uts) 1 tab BIDWMEALS PO Last administered on 11/10/18 08:35; Start 11/03/18 at 08:00 Citalopram Hydrobromide (CeleXA) 40 mg DAILY PO Last administered on 11/10/18 08:35; Start 11/03/18 at 09:00 Metronidazole 100 ml @ 100 mls/hr 1X ONCE IV Last administered on 11/02/18at 19:59; Start 11/02/18 at 18:00; Stop 11/02/18 at 18:59; Status DC Metronidazole (Flagyl) 500 mg Q8HRS PO Last administered on 11/04/18at 13:38; Start 11/02/18 at 22:00; Stop 11/04/18 at 14:23; Status DC Albuterol Sulfate (Ventolin Neb Soln) 2.5 mg PRN Q6HRS PRN NEB SHORTNESS OF BREATH; Start 11/02/18 at 18:15 Pharmacy Consult (C.diff Med Screen By Rx) 1 each 1X ONCE MC ; Start 11/02/18 at 19:45; Stop 11/02/18 at 19:46; Status UNV Lactobacillus Rhamnosus (Culturelle) 1 cap BID PO ; Start 11/02/18 at 21:00; Stop 11/02/18 at 20:09; Status DC Ibuprofen (Motrin) 600 mg PRN Q8HRS PRN PO PAIN Last administered on 11/04/18 03:52; Start 11/04/18 at 03:30; Stop 11/06/18 at 08:39; Status DC Potassium Chloride (Klor-Con) 40 meq 1X ONCE PO Last administered on 11/04/18at 06:52; Start 11/04/18 at 06:45; Stop 11/04/18 at 06:46; Status DC Potassium Chloride (Klor-Con) 20 meq 1X PO ; Start 11/04/18 at 09:30; Stop 11/07/18 at 13:09; Status DC Potassium Chloride/Water 100 ml @ 100 mls/hr Q1H IV Last administered on 11/04/18at 15:41; Start 11/04/18 at 10:00; Stop 11/04/18 at 11:59; Status DC Magnesium Sulfate 100 ml @ 25 mls/hr 1X ONCE IV Last administered on 11/04/18at 18:05; Start 11/04/18 at 11:30; Stop 11/04/18 at 15:29; Status DC Ondansetron HCl (Zofran Odt) 4 mg PRN Q6HRS PRN PO NAUSEA/VOMITING Last administered on 11/08/18at 15:56; Start 11/05/18 at 11:30 Loperamide HCl (Imodium) 2 mg PRN Q15MIN PRN PO DIARRHEA; Start 11/05/18 at 11:30 Clonidine HCl (Catapres) 0.1 mg PRN Q1HR PRN PO HYPERTENSION; Start 11/05/18 at 11:30 Amino Acids/ Glycerin/ Electrolytes 1,000 ml @ 75 mls/hr [id number] IV Last administered on 11/09/18at 22:24; Start 11/05/18 at 13:15 Pantoprazole Sodium (PROTONIX VIAL for IV PUSH) 40 mg BIDAC IVP Last administered on 11/05/18at 17:15; Start 11/05/18 at 16:30; Stop 11/06/18 at 08:39; Status DC Barium Sulfate (Liquid E-Z Paque) 710 ml 1X ONCE PO ; Start 11/06/18 at 08:00; Stop 11/06/18 at 08:03; Status DC Barium Sulfate (E-Z-Hd) 340 gm 1X ONCE PO ; Start 11/06/18 at 08:00; Stop 11/06/18 at 08:03; Status DC Simethicone/ Sodium Bicarb/ Citric Ac (E-Z-Gas) 1 packet 1X ONCE PO ; Start 11/06/18 at 08:00; Stop 11/06/18 at 08:03; Status DC Iohexol (Omnipaque 300 Mg/ml) 400 ml 1X ONCE PO Last administered on 11/06/18at 08:56; Start 11/06/18 at 08:30; Stop 11/06/18 at 08:31; Status DC Info (CONTRAST GIVEN -- Rx MONITORING) 1 each PRN DAILY PRN MC SEE COMMENTS; Start 11/06/18 at 08:45; Stop 11/08/18 at 08:44; Status DC Pantoprazole Sodium (Protonix) 40 mg DAILYAC PO Last administered on 11/10/18at 08:35; Start 11/07/18 at 07:30 Multi-Ingredient Mouthwash/Gargle (Gi Cocktail) 20 ml PRN QID PRN PO abd pain; Start 11/07/18 at 09:15 Fentanyl Citrate (Fentanyl 2ml Vial) 25 mcg PRN Q5MIN PRN IV MILD PAIN 1-3; Start 11/08/18 at 07:00; Stop 11/09/18 at 06:59; Status DC Fentanyl Citrate (Fentanyl 2ml Vial) 50 mcg PRN Q5MIN PRN IV MODERATE TO SEVERE PAIN; Start 11/08/18 at 07:00; Stop 11/09/18 at 06:59; Status DC Morphine Sulfate (Morphine Sulfate) 1 mg PRN Q10MIN PRN IV SEVERE PAIN 7-10; Start 11/08/18 at 07:00; Stop 11/09/18 at 06:59; Status DC Ringer's Solution 1,000 ml @ 30 mls/hr Q24H IV Last administered on 11/08/18at 06:38; Start 11/08/18 at 07:00; Stop 11/08/18 at 18:59; Status DC Hydromorphone HCl (Dilaudid) 0.5 mg PRN Q10MIN PRN IV SEV PAIN, Second choice; Start 11/08/18 at 07:00; Stop 11/09/18 at 06:59; Status DC Prochlorperazine Edisylate (Compazine) 5 mg PACU PRN PRN IV NAUSEA, MRX1; Start 11/08/18 at 07:00; Stop 11/09/18 at 06:59; Status DC Iohexol (Omnipaque 350 Mg/ml) 90 ml 1X ONCE IV Last administered on 11/09/18at 08:48; Start 11/08/18 at 11:30; Stop 11/08/18 at 11:31; Status DC Info (CONTRAST GIVEN -- Rx MONITORING) 1 each PRN DAILY PRN MC SEE COMMENTS; Start 11/08/18 at 11:15; Stop 11/10/18 at 11:14; Status DC Ringer's Solution 1,000 ml @ 75 mls/hr 1X ONCE IV Last administered on 11/08/18at 12:35; Start 11/08/18 at 12:30; Stop 11/09/18 at 01:49; Status DC Propofol 40 ml @ As Directed STK-MED ONCE IV ; Start 11/08/18 at 13:12; Stop 11/08/18 at 13:13; Status DC Lidocaine HCl (Lidocaine Pf 2% Vial) 5 ml STK-MED ONCE .ROUTE ; Start 11/08/18 at 13:13; Stop 11/08/18 at 13:13; Status DC Iohexol (Omnipaque 350 Mg/ml) 90 ml 1X ONCE IV ; Start 11/09/18 at 08:30; Stop 11/09/18 at 08:31; Status DC Metoclopramide HCl (Reglan) 5 mg PRN BFRMEALHC PRN PO NAUSEA/VOMITING; Start 11/09/18 at 08:45 Active Scripts Active Prednisone 50 Mg Tablet 1 Tab PO DAILY Culturelle (Lactobacillus Rhamnosus Gg) 1 Each Cap.sprink 1 Cap PO BID 30 Days Amlodipine Besylate 5 Mg Tablet 5 Mg PO DAILY 30 Days Doxycycline Hyclate 100 Mg Tablet 100 Mg PO BID 5 Days Imodium A-D (Loperamide HCl) 2 Mg Capsule 2 Mg PO PRN TID PRN Reported Calcium + Vitamin D Tablet (Calcium Carbonate/Vitamin D3) 1 Each Tablet 1 Each PO BID Prolia (Denosumab) 60 Mg/1 Ml Disp.syrin 60 Mg SQ [id number] Memantine HCl 10 Mg Tablet 10 Mg PO BID Proair Respiclick (Albuterol Sulfate) 90 Mcg Aer.pow.ba 2 Puff IH PRN Q6HRS PRN Meloxicam 7.5 Mg Tablet 7.5 Mg PO DAILY Celexa (Citalopram Hydrobromide) 40 Mg Tablet 1 Tab PO DAILY Aricept (Donepezil Hcl) 10 Mg Tablet 1 Tab PO DAILY Allergies Allergies: Coded Allergies: No Known Drug Allergies (Unverified , 11/08/18) ROS PSYCHOLOGICAL ROS: YES: Memory difficulties; No: Hallucinations Eyes: No Loss of vision HEENT: No: Epistaxis Respiratory: No: Hemoptysis Cardiovascular: No Chest Pain Gastrointestinal: Yes Nausea, Yes Vomiting, Yes Abdominal Pain, Yes Diarrhea Neurological: No Seizures Skin: No Rash Physical Exam General: Alert, Oriented X3 HEENT: Atraumatic, PERRLA Lungs: Clear to auscultation Heart: Regular rate Abdomen: Soft Extremities: No edema Psych/Mental Status: Mood NL Vitals VITALS Vital Signs Date Time Temp Pulse Resp B/P (MAP) Pulse Ox O2 Delivery O2 Flow Rate FiO2 11/10/18 11:00 98.0 72 18 169/92 (117) 91 Room Air 98.0 Assessment/Plan Assessment/Plan 1. Right renal artery stenosis on CTA. Patient's blood pressure however is relatively well controlled with just one antihypertensive medication. Her BUN/creatinine are within normal limits as well. She does not need SERVICE LEARNING COORDINATOR to right renal artery at this time. 2. Celiac artery stenosis. Patient does not have any symptoms suggestive of postprandial angina. The superior and inferior mesenteric artery did not show any critical lesions. She does not need any intervention at this time. 3. Esophageal dysmotility and nonerosive gastritis: Treat per GI team 4. Hypertension: Controlled. Check 2-D echo to assess LV function. Thank you for your consultation. KATHY AVILES MD Nov 10, 2018 12:28
[2018-11-10] MEDS: AMINO AC 3%/ELECTROLYTE/GLYCER 1,000 ML IV SCH (14:58)
[2018-11-10 15:00] VITALS: BP 148/87
[2018-11-10 19:00] VITALS: BP 148/88
[2018-11-10 23:00] VITALS: BP 169/90
[2018-11-11] MEDS: AMINO AC 3%/ELECTROLYTE/GLYCER 1,000 ML IV SCH ×2 (02:44→14:59)
[2018-11-11 03:04] VITALS: BP 101/64
[2018-11-11 07:00] VITALS: BP 113/80
[2018-11-11] MEDS: LACTOBACILLUS RHAMNOSUS GG 1 CAPSULE. PO SCH ×2 (08:58→21:06)
[2018-11-11] MEDS: amLODIPine BESYLATE 5 MG TABLET PO SCH (08:58)
[2018-11-11] MEDS: MEMANTINE 10 MG TABLET. PO SCH ×2 (08:58→21:06)
[2018-11-11] MEDS: CALCIUM CARB/VIT D3 500/200 TABLET. PO SCH ×2 (08:58→16:54)
[2018-11-11] MEDS: PANTOPRAZOLE 40 MG TABLET.DR. PO SCH (08:58)
[2018-11-11] MEDS: CITALOPRAM 20 MG TABLET. PO SCH (08:58)
[2018-11-11] MEDS: MELOXICAM 7.5 MG TABLET PO SCH (08:59)
--- NOTE | 2018-11-11 09:26 | PDOC ---
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 - BUT SHE HAS NO PAIN 75% stenosis rt renal artery - BUT BP GOOD STill poor pO< procalamine running Sister pulls me aside, she cant pinpoint why all of a sudden she "would give up" - no recent family stressors PLAN: echo today ordered by cards Cont procalamine WIll target dc home tmr HH - sister agreeable NO more diarrhea - c diff neg Agreeable to trial megace] FULL CODE Vitals Vitals Vital Signs Date Time Temp Pulse Resp B/P (MAP) Pulse Ox O2 Delivery O2 Flow Rate FiO2 11/11/18 09:02 72 113/80 11/11/18 07:00 98.1 18 90 Room Air 98.1 Physical Exam General: Alert, Oriented X3 Heart: Regular rate Lungs: Clear Abdomen: Soft Extremities: No edema Skin: No rashes, No breakdown Review of Systems Review of Systems poor po, quite, no cp, soa, abd pain, emesis, still nauseated Assessment and Plan Assessmemt and Plan Problems Medical Problems: (1) Dementia Status: Chronic (2) Diarrhea Status: Acute (3) Encephalopathy Status: Chronic (4) Gastroenteritis Status: Acute (5) Generalized weakness Status: Acute (6) Leukocytosis Status: Acute (7) Nausea and vomiting Status: Acute (8) Sepsis Status: Acute Comment Review of Relevant I have reviewed the following items donovan (where applicable) has been applied. Labs Microbiology 11/02/18 Blood Culture - Final, Complete NO GROWTH AFTER 5 DAYS Medications Current Medications Sodium Chloride 1,000 ml @ 1,000 mls/hr Q1H IV Last administered on 11/02/18at 15:04; Start 11/02/18 at 14:39; Stop 11/02/18 at 15:38; Status DC Sodium Chloride 1,000 ml @ 100 mls/hr Q10H IV Last administered on 11/03/18at 16:19; Start 11/02/18 at 17:10; Stop 11/03/18 at 17:09; Status DC Ondansetron HCl (Zofran Odt) 4 mg PRN Q8HRS PRN PO NAUSEA/VOMITING Last administered on 11/05/18 07:04; Start 11/02/18 at 18:00; Stop 11/05/18 at 11:24; Status DC Amlodipine Besylate (Norvasc) 5 mg DAILY PO Last administered on 11/11/18 09:0 2; Start 11/03/18 at 09:00 Lactobacillus Rhamnosus (Culturelle) 1 cap BID PO Last administered on 11/11/18 09:02; Start 11/02/18 at 21:00 Loperamide HCl (Imodium) 2 mg PRN TID PRN PO DIARRHEA Last administered on 11/03/18 06:11; Start 11/02/18 at 18:00; Stop 11/05/18 at 12:21; Status DC Meloxicam (Mobic) 7.5 mg DAILY PO Last administered on 11/11/18 09:02; Start 11/03/18 at 09:00 Memantine (Namenda) 10 mg BID PO Last administered on 11/11/18 09:02; Start 11/02/18 at 21:00 Non-Formulary Medication (Albuterol Sulfate (Proair Respiclick)) 2 puff PRN Q6HRS PRN IH SHORTNESS OF BREATH; Start 11/02/18 at 18:00; Stop 11/02/18 at 18:04; Status DC Calcium/Vitamin D (Oscal D 500mg/ 200uts) 1 tab BIDWMEALS PO Last administered on 11/11/18 09:02; Start 11/03/18 at 08:00 Citalopram Hydrobromide (CeleXA) 40 mg DAILY PO Last administered on 11/11/18 09:02; Start 11/03/18 at 09:00 Metronidazole 100 ml @ 100 mls/hr 1X ONCE IV Last administered on 11/02/18 19:59; Start 11/02/18 at 18:00; Stop 11/02/18 at 18:59; Status DC Metronidazole (Flagyl) 500 mg Q8HRS PO Last administered on 11/04/18 13:38; Start 11/02/18 at 22:00; Stop 11/04/18 at 14:23; Status DC Albuterol Sulfate (Ventolin Neb Soln) 2.5 mg PRN Q6HRS PRN NEB SHORTNESS OF BREATH; Start 11/02/18 at 18:15 Pharmacy Consult (C.diff Med Screen By Rx) 1 each 1X ONCE MC ; Start 11/02/18 at 19:45; Stop 11/02/18 at 19:46; Status UNV Lactobacillus Rhamnosus (Culturelle) 1 cap BID PO ; Start 11/02/18 at 21:00; Stop 11/02/18 at 20:09; Status DC Ibuprofen (Motrin) 600 mg PRN Q8HRS PRN PO PAIN Last administered on 11/04/18at 03:52; Start 11/04/18 at 03:30; Stop 11/06/18 at 08:39; Status DC Potassium Chloride (Klor-Con) 40 meq 1X ONCE PO Last administered on 11/04/18at 06:52; Start 11/04/18 at 06:45; Stop 11/04/18 at 06:46; Status DC Potassium Chloride (Klor-Con) 20 meq 1X PO ; Start 11/04/18 at 09:30; Stop 11/07/18 at 13:09; Status DC Potassium Chloride/Water 100 ml @ 100 mls/hr Q1H IV Last administered on 11/04/18at 15:41; Start 11/04/18 at 10:00; Stop 11/04/18 at 11:59; Status DC Magnesium Sulfate 100 ml @ 25 mls/hr 1X ONCE IV Last administered on 11/04/18at 18:05; Start 11/04/18 at 11:30; Stop 11/04/18 at 15:29; Status DC Ondansetron HCl (Zofran Odt) 4 mg PRN Q6HRS PRN PO NAUSEA/VOMITING Last administered on 11/08/18at 15:56; Start 11/05/18 at 11:30 Loperamide HCl (Imodium) 2 mg PRN Q15MIN PRN PO DIARRHEA; Start 11/05/18 at 11:30 Clonidine HCl (Catapres) 0.1 mg PRN Q1HR PRN PO HYPERTENSION Last administered on 11/10/18at 23:49; Start 11/05/18 at 11:30 Amino Acids/ Glycerin/ Electrolytes 1,000 ml @ 75 mls/hr [id number] IV Last administered on 11/11/18at 02:44; Start 11/05/18 at 13:15 Pantoprazole Sodium (PROTONIX VIAL for IV PUSH) 40 mg BIDAC IVP Last administered on 11/05/18at 17:15; Start 11/05/18 at 16:30; Stop 11/06/18 at 08:39; Status DC Barium Sulfate (Liquid E-Z Paque) 710 ml 1X ONCE PO ; Start 11/06/18 at 08:00; Stop 11/06/18 at 08:03; Status DC Barium Sulfate (E-Z-Hd) 340 gm 1X ONCE PO ; Start 11/06/18 at 08:00; Stop 11/06/18 at 08:03; Status DC Simethicone/ Sodium Bicarb/ Citric Ac (E-Z-Gas) 1 packet 1X ONCE PO ; Start 11/06/18 at 08:00; Stop 11/06/18 at 08:03; Status DC Iohexol (Omnipaque 300 Mg/ml) 400 ml 1X ONCE PO Last administered on 11/06/18at 08:56; Start 11/06/18 at 08:30; Stop 11/06/18 at 08:31; Status DC Info (CONTRAST GIVEN -- Rx MONITORING) 1 each PRN DAILY PRN MC SEE COMMENTS; Start 11/06/18 at 08:45; Stop 11/08/18 at 08:44; Status DC Pantoprazole Sodium (Protonix) 40 mg DAILYAC PO Last administered on 11/11/18at 09:02; Start 11/07/18 at 07:30 Multi-Ingredient Mouthwash/Gargle (Gi Cocktail) 20 ml PRN QID PRN PO abd pain; Start 11/07/18 at 09:15 Fentanyl Citrate (Fentanyl 2ml Vial) 25 mcg PRN Q5MIN PRN IV MILD PAIN 1-3; Start 11/08/18 at 07:00; Stop 11/09/18 at 06:59; Status DC Fentanyl Citrate (Fentanyl 2ml Vial) 50 mcg PRN Q5MIN PRN IV MODERATE TO SEVERE PAIN; Start 11/08/18 at 07:00; Stop 11/09/18 at 06:59; Status DC Morphine Sulfate (Morphine Sulfate) 1 mg PRN Q10MIN PRN IV SEVERE PAIN 7-10; Start 11/08/18 at 07:00; Stop 11/09/18 at 06:59; Status DC Ringer's Solution 1,000 ml @ 30 mls/hr Q24H IV Last administered on 11/08/18at 06:38; Start 11/08/18 at 07:00; Stop 11/08/18 at 18:59; Status DC Hydromorphone HCl (Dilaudid) 0.5 mg PRN Q10MIN PRN IV SEV PAIN, Second choice; Start 11/08/18 at 07:00; Stop 11/09/18 at 06:59; Status DC Prochlorperazine Edisylate (Compazine) 5 mg PACU PRN PRN IV NAUSEA, MRX1; Start 11/08/18 at 07:00; Stop 11/09/18 at 06:59; Status DC Iohexol (Omnipaque 350 Mg/ml) 90 ml 1X ONCE IV Last administered on 11/09/18at 08:48; Start 11/08/18 at 11:30; Stop 11/08/18 at 11:31; Status DC Info (CONTRAST GIVEN -- Rx MONITORING) 1 each PRN DAILY PRN MC SEE COMMENTS; Start 11/08/18 at 11:15; Stop 11/10/18 at 11:14; Status DC Ringer's Solution 1,000 ml @ 75 mls/hr 1X ONCE IV Last administered on 11/08/18at 12:35; Start 11/08/18 at 12:30; Stop 11/09/18 at 01:49; Status DC Propofol 40 ml @ As Directed STK-MED ONCE IV ; Start 11/08/18 at 13:12; Stop 11/08/18 at 13:13; Status DC Lidocaine HCl (Lidocaine Pf 2% Vial) 5 ml STK-MED ONCE .ROUTE ; Start 11/08/18 at 13:13; Stop 11/08/18 at 13:13; Status DC Iohexol (Omnipaque 350 Mg/ml) 90 ml 1X ONCE IV ; Start 11/09/18 at 08:30; Stop 11/09/18 at 08:31; Status DC Metoclopramide HCl (Reglan) 5 mg PRN BFRMEALHC PRN PO NAUSEA/VOMITING; Start 11/09/18 at 08:45 Active Scripts Active Prednisone 50 Mg Tablet 1 Tab PO DAILY Culturelle (Lactobacillus Rhamnosus Gg) 1 Each Cap.sprink 1 Cap PO BID 30 Days Amlodipine Besylate 5 Mg Tablet 5 Mg PO DAILY 30 Days Doxycycline Hyclate 100 Mg Tablet 100 Mg PO BID 5 Days Imodium A-D (Loperamide HCl) 2 Mg Capsule 2 Mg PO PRN TID PRN Reported Calcium + Vitamin D Tablet (Calcium Carbonate/Vitamin D3) 1 Each Tablet 1 Each PO BID Prolia (Denosumab) 60 Mg/1 Ml Disp.syrin 60 Mg SQ [id number] Memantine HCl 10 Mg Tablet 10 Mg PO BID Proair Respiclick (Albuterol Sulfate) 90 Mcg Aer.pow.ba 2 Puff IH PRN Q6HRS PRN Meloxicam 7.5 Mg Tablet 7.5 Mg PO DAILY Celexa (Citalopram Hydrobromide) 40 Mg Tablet 1 Tab PO DAILY Aricept (Donepezil Hcl) 10 Mg Tablet 1 Tab PO DAILY Vitals/I & O Vital Sign - Last 24 Hours 11/10/18 11/10/18 11/10/18 11/10/18 11:00 15:00 19:00 19:30 Temp 98.0 98.1 98.0 98.0 98.1 98.0 Pulse 72 72 74 Resp 18 18 18 B/P (MAP) 169/92 (117) 148/87 (107) 148/88 (108) Pulse Ox 91 91 94 O2 Delivery Room Air Room Air Room Air Room Air 11/10/18 11/10/18 11/11/18 11/11/18 23:00 23:49 03:04 07:00 Temp 98.0 98.5 98.1 98.0 98.5 98.1 Pulse 74 74 91 72 Resp 18 18 18 B/P (MAP) 169/90 (116) 169/90 101/64 (76) 113/80 (91) Pulse Ox 91 91 90 O2 Delivery Room Air Room Air Room Air 11/11/18 09:02 Pulse 72 B/P (MAP) 113/80 Intake and Output 11/10/18 11/10/18 11/11/18 14:59 22:59 06:59 Intake Total 1120 ml 50 ml Balance 1120 ml 50 ml Nutrition Consultation Dietary Evaluation: Recommendations by RD: Increase Calorie Intake, Protein supplementation, PPN/TPN Comments: REC continue PPN at this time REc ensure bid and magic cup bid when diet resumes Expected Outcomes/Goals: to meet > 75% est nutr needs via po intake - goal ongoing Interpretation of weight loss: >5% in 1 month Malnutrition Findings: Food and Nutrition Intake (Sev: <50% est energy req 5days Body Fat Depletion (Non Severe: Mild Depletion Weight Status: Underweight ELIZABETH JANE MD Nov 11, 2018 09:26
[2018-11-11 11:00] VITALS: BP 132/81
--- NOTE | 2018-11-11 11:10 | PDOC ---
PROGRESS NOTES Subjective Subjective c/o nausea Objective Objective Vital Signs Date Time Temp Pulse Resp B/P (MAP) Pulse Ox O2 Delivery O2 Flow Rate FiO2 11/11/18 09:02 72 113/80 11/11/18 07:00 98.1 18 90 Room Air 98.1 Intake and Output 11/11/18 06:59 Intake Total 1170 ml Balance 1170 ml Intake Oral 170 ml IV Total 1000 ml # Voids 5 Physical Exam Abdomen: Soft Heart: Regular rate Extremities: No edema General: Alert, Oriented X3 HEENT: Atraumatic, PERRLA Lungs: Clear to auscultation Neuro: Normal speech, Strength at 5/5 X4 ext, Normal tone, Cranial nerves 3-12 NL Psych/Mental Status: Mood NL Skin: No rashes, No breakdown Assessment Assessment 1. Right renal artery stenosis on CTA. Patient's blood pressure however is relatively well controlled with just one antihypertensive medication. Her BUN/creatinine are within normal limits as well. 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 2. Celiac artery stenosis. Patient does not have any symptoms suggestive of postprandial angina. The superior and inferior mesenteric artery did not show any critical lesions. She does not need any intervention at this time. 3. Esophageal dysmotility and nonerosive gastritis: Treat per GI team 4. Hypertension: Controlled. Check 2-D echo to assess LV function. Plan Plan of Care Problems Medical Problems: (1) Dementia Status: Chronic (2) Diarrhea Status: Acute (3) Encephalopathy Status: Chronic (4) Gastroenteritis Status: Acute (5) Generalized weakness Status: Acute (6) Leukocytosis Status: Acute (7) Nausea and vomiting Status: Acute (8) Sepsis Status: Acute Comment Review of Relevant I have reviewed the following items donovan (where applicable) has been applied. Labs Microbiology 11/02/18 Blood Culture - Final, Complete NO GROWTH AFTER 5 DAYS Medications Current Medications Megestrol Acetate (Megace) 20 mg DAILY PO ; Start 11/11/18 at 10:30 Vitals/I & O Vital Sign - Last 24 Hours 11/10/18 11/10/18 11/10/18 11/10/18 15:00 19:00 19:30 23:00 Temp 98.1 98.0 98.0 98.1 98.0 98.0 Pulse 72 74 74 Resp 18 18 18 B/P (MAP) 148/87 (107) 148/88 (108) 169/90 (116) Pulse Ox 91 94 91 O2 Delivery Room Air Room Air Room Air Room Air 11/10/18 11/11/18 11/11/18 11/11/18 23:49 03:04 07:00 09:02 Temp 98.5 98.1 98.5 98.1 Pulse 74 91 72 72 Resp 18 18 B/P (MAP) 169/90 101/64 (76) 113/80 (91) 113/80 Pulse Ox 91 90 O2 Delivery Room Air Room Air Intake and Output 11/10/18 11/10/18 11/11/18 14:59 22:59 06:59 Intake Total 1120 ml 50 ml Balance 1120 ml 50 ml KATHY AVILES MD Nov 11, 2018 11:10
[2018-11-11] MEDS: ONDANSETRON ODT 4 MG TAB.RAPDIS. PO PRN (12:36)
[2018-11-11] MEDS: MEGESTROL 20 MG TABLET. PO SCH (14:58)
[2018-11-11 15:57] VITALS: BP 127/84
[2018-11-11 19:00] VITALS: BP 144/86
[2018-11-11 23:00] VITALS: BP 131/85
[2018-11-12 03:11] VITALS: BP 150/83
[2018-11-12] MEDS: AMINO AC 3%/ELECTROLYTE/GLYCER 1,000 ML IV SCH (05:12)
[2018-11-12 07:00] VITALS: BP 136/84
[2018-11-12] MEDS: CALCIUM CARB/VIT D3 500/200 TABLET. PO SCH (08:10)
[2018-11-12] MEDS: PANTOPRAZOLE 40 MG TABLET.DR. PO SCH (08:10)
[2018-11-12] MEDS: amLODIPine BESYLATE 5 MG TABLET PO SCH (08:11)
[2018-11-12] MEDS: MELOXICAM 7.5 MG TABLET PO SCH (08:11)
[2018-11-12] MEDS: MEGESTROL 20 MG TABLET. PO SCH (08:11)
[2018-11-12] MEDS: LACTOBACILLUS RHAMNOSUS GG 1 CAPSULE. PO SCH (08:11)
[2018-11-12] MEDS: MEMANTINE 10 MG TABLET. PO SCH (08:11)
[2018-11-12] MEDS: CITALOPRAM 20 MG TABLET. PO SCH (08:12)
[2018-11-12] MEDS ORDERED: MEGE20TA PO (08:13)
[2018-11-12] MEDS ORDERED: PANT40TA77 PO (08:13)
--- NOTE | 2018-11-12 08:14 | SNU/HH DC ---
DISCHARGE WITH HOME HEALTH DISCHARGE INFORMATION: Discharge Date: Nov 12, 2018 Final Diagnosis: Problems Medical Problems: (1) Dementia Status: Chronic (2) Diarrhea Status: Acute (3) Encephalopathy Status: Chronic (4) Gastroenteritis Status: Acute (5) Generalized weakness Status: Acute (6) Leukocytosis Status: Acute (7) Nausea and vomiting Status: Acute (8) Sepsis Status: Acute Condition on Discharge: Stable CODE STATUS: Code Status: Full HOME HEALTH: Face to Face: I certify this patient is under my care and that I, or a nurse practitioner or physician's shipping and receiving assistant working with me, had a face to face encounter that meets the physician face to face encounter requirements with this patient on []. RN For Eval/Treatment: Yes Physical Therapy For: Evalulation/Treatment Occupational Therapy For: Evaluation/Treatment Speech Language Pathology For: Evaluation/Treatment Home Health Aide For: Self-care RELOCATION MANAGER For: Community Resources Pt Meets Homebound Status: Extreme weakness w/ amb. POST DISCHARGE ORDERS: Activity Instructions for Disc: Activity as tolerated Weight Bearing Status after Di: As tolerated DIET AFTER DISCHARGE: Regular CHECKS AFTER DISCHARGE: Checks after discharge: Check blood press - daily FOLLOW-UP: PCP to follow Home Health: pcp re poor PO - new med is megace and PPI TREATMENT/EQUIPMENT ORDERS: Adaptive Equipment Issued: Walker CERTIFICATION STATEMENT: Certification Statement: Certification Statement: Based on the above finding, I certify that this patient is confined to the home and needs intermittent assisted care, physical therapy and/or speech therapy, or continues to need occupational therapy.~ This patient is under my care, and I have initiated the establishment of the plan of care.~ This patient will be followed by myself or a community physician who will periodically review the plan of care. Home Meds Active Scripts Megestrol Acetate (MEGESTROL ACETATE) 20 Mg Tablet, 20 MG PO DAILY for poor appetite, #30 TAB Prov:ELIZABETH JANE MD 11/12/18 Pantoprazole Sodium (PANTOPRAZOLE SODIUM ) 40 Mg Tablet.dr, 40 MG PO DAILYAC for gerd, #60 TAB.SR Prov:ELIZABETH JANE MD 11/12/18 Prednisone (PREDNISONE) 50 Mg Tablet, 1 TAB PO DAILY for bronchitis, #5 TAB Prov:KAYLA VEGA MD 05/03/18 Lactobacillus Rhamnosus Gg (CULTURELLE) 1 Each Cap.sprink, 1 CAP PO BID for probiotic for 30 Days, #60 CAP Prov:KAYLA VEGA MD 05/03/18 Amlodipine Besylate (AMLODIPINE BESYLATE) 5 Mg Tablet, 5 MG PO DAILY for HTN for 30 Days, #30 TAB Prov:KAYLA VEGA MD 05/03/18 Doxycycline Hyclate (DOXYCYCLINE HYCLATE) 100 Mg Tablet, 100 MG PO BID for bronchitis for 5 Days, #10 TAB Prov:KAYLA VEGA MD 05/03/18 Loperamide HCl (Imodium A-D) 2 Mg Capsule, 2 MG PO PRN TID PRN for DIARRHEA, #1 CAP Prov:OSMEL RIVERA MD 06/08/16 Reported Medications Calcium Carbonate/Vitamin D3 (CALCIUM + VITAMIN D TABLET) 1 Each Tablet, 1 EACH PO BID for supplement, TAB 05/01/18 Denosumab (PROLIA) 60 Mg/1 Ml Disp.syrin, 60 MG SQ [id number] for Osteoporosis, DIS.SYR 05/01/18 Memantine HCl (Memantine HCl) 10 Mg Tablet, 10 MG PO BID for memory 05/01/18 Albuterol Sulfate (Proair Respiclick) 90 Mcg Aer.pow.ba, 2 PUFF IH PRN Q6HRS PRN for SHORTNESS OF BREATH, INHALER 05/01/18 Meloxicam (MELOXICAM) 7.5 Mg Tablet, 7.5 MG PO DAILY for pain 05/01/18 Citalopram Hydrobromide (CELEXA) 40 Mg Tablet, 1 TAB PO DAILY for depression, #30 TAB 1 Refill 06/06/16 Donepezil Hcl (ARICEPT) 10 Mg Tablet, 1 TAB PO DAILY for memory, #30 TAB 5 Refills 06/06/16 ELIZABETH JANE MD Nov 12, 2018 08:14
[2018-11-12] MEDS: ONDANSETRON ODT 4 MG TAB.RAPDIS. PO PRN (08:19)
[2018-11-12] MEDS ORDERED: ONDA4TAB7 PO (10:14)
--- NOTE | 2018-11-12 10:18 | PDOC3 ---
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 - no post prandial pain 75% stenosis rt renal artery, incidental, good BP Mild ileus diarrhea - c diff neg, RESOLVED NON EROISVE GASTRITIS ESOPHAGEAL DYSMOTILITY - s/p EGD 11/08 Final Diagnosis Problems Medical Problems: (1) Dementia Status: Chronic (2) Diarrhea Status: Acute (3) Encephalopathy Status: Chronic (4) Gastroenteritis Status: Acute (5) Generalized weakness Status: Acute (6) Leukocytosis Status: Acute (7) Nausea and vomiting Status: Acute (8) Sepsis Status: Acute Brief Hospital Course Allergies Allergies Coded Allergies Type Severity Reaction Last Updated Verified No Known Drug Allergies 11/08/18 No Vital Signs Vital Signs Date Time Temp Pulse Resp B/P (MAP) Pulse Ox O2 Delivery O2 Flow Rate FiO2 11/12/18 08:19 77 136/84 11/12/18 07:00 97.7 18 93 Room Air 97.7 Brief Hospital Course Ms. Kc is a 83 old white female, who lives in [place], admitted and stayed over a week with us for persistent nausea recalcitrant to supprotive meds, Took me a week and several tests and consults. EGD showed non erosive gastritis and esoph dysmotility, CTA showed celaic artery stenosis and RT renal artery stenosis - buts he does not have post prandial pain and bP good - no intervention per c ards. She needed procalamine for whole week, initially did not want appetite stimulant but then later on was agreeable,. Sister involved, does nt want SNU but HH in current [place] Home today after echo ordered by cards FULL CODE Consults; GI, cards PRoc: multiple imaging, EGD time 40 Discharge Information Condition at Discharge: Improved, Stable Disposition/Orders: D/C to Home w/ HH Scheduled Amlodipine Besylate (Amlodipine Besylate) 5 Mg Tablet, 5 MG PO DAILY for HTN for 30 Days, #30 Prescribed by: KAYLA VEGA MD on 05/03/18 1422 Last Action: Continued on 11/02/18 175 by PEDRO CARRION Calcium Carbonate/Vitamin D3 (Calcium + Vitamin D Tablet) 1 Each Tablet, 1 EACH PO BID for supplement, (Reported) Entered as Reported by: IFEOMA WHITLOCK on 05/01/181412 Last Action: Converted on 11/02/181755 by PEDRO CARRION Citalopram Hydrobromide (Celexa) 40 Mg Tablet, 1 TAB PO DAILY for depression, #30 Ref 1 (Reported) Entered as Reported by: KAM BROWN on 06/06/161710 Last Action: Converted on 11/02/181755 by PEDRO CARRION Denosumab (Prolia) 60 Mg/1 Ml Disp.syrin, 60 MG SQ [id number] for Osteoporosis, (Reported) Entered as Reported by: IFEOMA WHITLOCK on 05/01/181412 Last Action: HELD on 11/02/181755 by PEDRO CARRION Donepezil Hcl (Aricept) 10 Mg Tablet, 1 TAB PO DAILY for memory, #30 Ref 5 (Reported) Entered as Reported by: KAM BROWN on 06/06/161710 Last Action: HELD on 11/02/181755 by PEDRO CARRION Lactobacillus Rhamnosus Gg (Culturelle) 1 Each Cap.sprink, 1 CAP PO BID for probiotic for 30 Days, #60 Prescribed by: KAYLA VEGA MD on 05/03/18 1422 Last Action: Continued on 11/02/181755 by PEDRO CARRION Megestrol Acetate (Megestrol Acetate) 20 Mg Tablet, 20 MG PO DAILY for poor appetite, #30 Prescribed by: ELIZABETH JANE on 11/12/18 0813 Meloxicam (Meloxicam) 7.5 Mg Tablet, 7.5 MG PO DAILY for pain, (Reported) Entered as Reported by: IFEOMA WHITLOCK on 05/01/18 0736 Last Action: Continued on 11/02/181755 by PEDRO CARRION Memantine HCl (Memantine HCl) 10 Mg Tablet, 10 MG PO BID for memory, (Reported) Entered as Reported by: IFEOMA WHITLOCK on 05/01/181412 Last Action: Continued on 11/02/181755 by PEDRO CARRION Ondansetron Hcl (Zofran) 4 Mg Tablet, 1 TAB PO Q6HRS for nasuea, #120 Prescribed by: ELIZABETH JANE on 11/12/18 1014 Pantoprazole Sodium (Pantoprazole Sodium ) 40 Mg Tablet., 40 MG PO DAILYAC for gerd, #60 Prescribed by: ELIZABETH JANE on 11/12/18 0813 Scheduled PRN Albuterol Sulfate (Proair Respiclick) 90 Mcg Aer.pow.ba, 2 PUFF IH PRN Q6HRS PRN for SHORTNESS OF BREATH, (Reported) Entered as Reported by: ESTRELLA PATRICIO on 05/01/18 1129 Last Action: Converted on 11/02/181755 by PEDRO CARRION Loperamide HCl (Imodium A-D) 2 Mg Capsule, 2 MG PO PRN TID PRN for DIARRHEA, #1 Prescribed by: OSMEL RIVERA on 06/08/16 0830 Last Action: Continued on 11/02/181755 by PEDRO CARRION Discontinued Medications Doxycycline Hyclate (Doxycycline Hyclate) 100 Mg Tablet, 100 MG PO BID for bronchitis for 5 Days, #10 Prescribed by: KAYLA VEGA MD on 05/03/181421 Last Action: HELD on 11/02/181755 by PEDRO CARRION Prednisone (Prednisone) 50 Mg Tablet, 1 TAB PO DAILY for bronchitis, #5 Prescribed by: KAYLA VEGA MD on 05/03/181421 Last Action: HELD on 11/02/181755 by ELIZABETH ORTIZ MD Nov 12, 2018 10:18
[2018-11-12 10:49] VITALS: BP 134/80
--- NOTE | 2018-11-12 11:41 | CARD ---
MR#: [id number] Date of Study: 11/12/2018 Ordering Physician: KATHY HERRMANN, Referring Physician: KATHY HERRMANN Tech: Maria L Velasquez KATHRYN APPROVED REPORT EXAM: Two-dimensional and M-mode echocardiogram with Doppler and color Doppler. Other Information Quality : AverageHR: 80bpm Rhythm : NSR INDICATION Hypertension/HCVD 2D DIMENSIONS RVDd2.9 (2.9-3.5cm)Left Atrium(2D)3.7 (1.6-4.0cm) IVSd1.1 (0.7-1.1cm)Aortic Root(2D)2.6 (2.0-3.7cm) LVDd3.4 (3.9-5.9cm)LVOT Diameter2.1 (1.8-2.4cm) PWd0.9 (0.7-1.1cm)LVDs2.5 (2.5-4.0cm) FS (%) 28.5 %SV27.2 ml LVEF(%)56.1 (>50%) Aortic Valve AoV Peak Justen.151.3cm/sAoV VTI24.6cm AO Peak GR.9.2mmHgLVOT Peak Justen.133.6cm/s AO Mean GR.5mmHgAVA (VMAX)2.92cm2 GRIS (VTI)2.90cm2 Mitral Valve MV E Edgcegnv63.8cm/sMV DECEL HQUC121sp MV A Fngoncny29.3cm/sE/A Ratio0.6 Pulmonary Valve PV Peak Vbksypzk84.8cm/s Tricuspid Valve TR P. Twxpensb685np/sRAP [id number] TR Peak Gr.[id number] LEFT VENTRICLE The left ventricle is normal size. Proximal septal thickening is noted. The left ventricular systolic function is normal. The Ejection Fraction is 55-60%. There is normal LV segmental wall motion. Trans mitral Doppler flow pattern is Grade I-abnormal relaxation pattern. RIGHT VENTRICLE The right ventricle is normal size. There is normal right ventricular wall thickness. The right ventr icular systolic function is normal. ATRIA The left atrium size is normal. The right atrium size is normal. The interatrial septum is intact wit h no evidence for an atrial septal defect or patent foramen ovale as noted on 2-D or Doppler imaging. AORTIC VALVE The aortic valve is not well visualized. The aortic valve is probably trileaflet. Doppler and Color F low revealed mild aortic regurgitation. There is no significant aortic valvular stenosis. There is no aortic valvular vegetation. MITRAL VALVE Mitral annular calcification is mild. There is no evidence of mitral valve prolapse. There is no mitr al valve stenosis. Doppler and Color-flow revealed mild mitral regurgitation. TRICUSPID VALVE The tricuspid valve is normal in structure and function. Doppler and Color Flow revealed trace tricus pid regurgitation. The PA pressure was estimated at 35 mmHg. There is no tricuspid valve prolapse or vegetation. There is no tricuspid valve stenosis. PULMONIC VALVE The pulmonic valve is not well visualized. GREAT VESSELS The aortic root is normal in size. The ascending aorta is normal in size. The IVC is normal in size a nd collapses >50% with inspiration. PERICARDIAL EFFUSION There is no evidence of significant pericardial effusion. Critical Notification Critical Value: No <Conclusion> The left ventricular systolic function is normal. The Ejection Fraction is 55-60%. There is normal LV segmental wall motion. Transmitral Doppler flow pattern is Grade I-abnormal relaxation pattern. Mild aortic regurgitation. Mild mitral regurgitation. Trace tricuspid regurgitation. The PA pressure was estimated at 35 mmHg. There is no evidence of significant pericardial effusion. Signed by : Kathy Herrmann, Electronically Approved : 11/12/2018 11:41:10
--- NOTE | 2018-11-12 12:15 | PDOC ---
Subjective: Subjective: Ate some breakfast, feels okay. Denies abd pain and diarrhea. 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 Small hiatal hernia. PE: GEN: NAD, watching tv in chair - sister present LUNGS: CTAB HEART: RRR ABD: S/ND/NT NEURO/PSYCH: A & O �3, forgetful A/P: Nausea/anorexia - better GERD/dysmotility Celiac artery and HERMELINDO stenosis Dementia -- Plans to DC - would continue PPI. ADRIENNE TIWARI Nov 12, 2018 12:15
--- NOTE | 2018-11-12 12:31 | NUR ---
MAR[facility] following pt. SW phoned and faxed orders to [facility], and [facility] . Pt's daughter able to transport pt back to [facility] today. D/w RN.
--- NOTE | 2018-11-12 15:35 | NUR ---
pt discharged to [facility] in private vehicle accompanied by daughter. [facility] to resume tomorrow. pt stable upon DC. meds and follow up reviewed. report given to DEEPIKA Cisneros at [facility].
== END 2018-11-12 16:13 | disposition home health service (06) | DRG 872 ==
LOC: ER 14:11 → 5 SOUTH 15:04
PROVIDERS: ADMIT Internal Medicine; ATTEND Internal Medicine
PROC: 0DJ08ZZ Inspection of Upper Intestinal Tract, Via Natural or Artificial Opening Endoscopic (ICD-10-PCS; principal; 2018-11-08 13:00)
DX: A41.9 Sepsis, unspecified organism (principal); G93.40 Encephalopathy, unspecified; I77.4 Celiac artery compression syndrome; K56.7 Ileus, unspecified; E86.0 Dehydration; E83.42 Hypomagnesemia; K76.89 Other specified diseases of liver; I70.1 Atherosclerosis of renal artery; J44.9 Chronic obstructive pulmonary disease, unspecified; M19.90 Unspecified osteoarthritis, unspecified site; F03.90 Unspecified dementia, unspecified severity, without behavioral disturbance, psychotic disturbance, mood disturbance, and anxiety; F32.9 Major depressive disorder, single episode, unspecified; E78.00 Pure hypercholesterolemia, unspecified; I10 Essential (primary) hypertension; M81.0 Age-related osteoporosis without current pathological fracture; E78.5 Hyperlipidemia, unspecified; M10.9 Gout, unspecified; E87.6 Hypokalemia; K22.4 Dyskinesia of esophagus; K29.70 Gastritis, unspecified, without bleeding; K21.9 Gastro-esophageal reflux disease without esophagitis; K44.9 Diaphragmatic hernia without obstruction or gangrene; Z86.011 Personal history of benign neoplasm of the brain; Z87.440 Personal history of urinary (tract) infections; Z87.01 Personal history of pneumonia (recurrent); Z86.010 Personal history of colon polyps; Z79.899 Other long term (current) drug therapy
CPT/HCPCS: 36415; 43235; 74018; 74022; 74175; 74245; 80048; 80053; 81001; 82274; 82550; 83605; 83690; 83735; 84132; 85025; 85027; 85610; 87040; 87493; 93005; 93306; C9113; J2001; J2704; J3475; J3480; J3490; J7030; J7120; J8597; Q0162; Q9967; 97110; 97116; 97530; 97535; 99285-25; G0378